=== PATIENT | female | born 1990 | race Two or more races ===

== ENCOUNTER 2020-08-29 16:27 | Inpatient (IN) | payer MEDICARE, OTHER ==
[~2020-08-29] VITALS: Ht 157.5 cm; Wt 55.4 kg
[~2020-08-29 16:27] MED LIST: AMIT25TA PO; AMLO-150 PO; GABA600T7 PO; INSU100C5 SQ-INSULIN; LEVO100T5 PO; LOSA100T14 PO; METO25TA35 PO; ONDA4TAB13 SL; OXYC5TAB98 PO; SEVE800T8 PO
--- NOTE | 2020-08-29 17:46 | NUR ---
OPTHO AT BEDSIDE.
--- NOTE | 2020-08-29 17:52 | NUR ---
MD AWARE OF HIGH BP
--- NOTE | 2020-08-29 18:06 | NUR ---
OPTHO AT BEDSIDE.
--- NOTE | 2020-08-29 18:45 | NUR ---
SPOKE [facility] PT'S FAMILY AND MITTENS ARE TO STAY ON AT ALL TIME. PT HAS REMOVED MUTIPLE ACCESS PORTS.
--- NOTE | 2020-08-29 19:55 | NUR ---
SPOKE WITH FANNY, PRE SCHOOL MANAGER AT [facility]. THEY ARE UNABLE TO ACCEPT PT THERE IS NO ADMITTING PHYSICIAN AT THIS TIME. DR BALLESTEROS UPDATED. PT WILL BE ADMITTED TO [facility].
--- NOTE | 2020-08-29 19:58 | NUR ---
LEFT MESSAGE UPDATING ON HOSP ADMISSION WITH PERSON TO NOTIFY IN PT DEMOGRAPHIC.
[2020-08-29] MEDS ORDERED: SODIUM CHLORIDE FLUSH 10ML SYR IVF ONE (20:30)
[2020-08-29] MEDS ORDERED: SODIUM CHLORIDE FLUSH 10ML SYR IVF PRN (20:30)
--- NOTE | 2020-08-29 20:51 | NUR ---
JAMIE WATSONER BROTHER [phone], CALLED JANICE ESPINOZA TO EXPLAIN POC WITH BROTHER AND BROTHER STATED HEMATOLOGY SUPERVISOR CARE WOULD BE A POC OR GO HOME WITH MOTHER AND HAVE 24/7 CARE FOR PT. ALEXIS TO F/U TOMORROW, DISCUSSED WITH FAMILY
--- NOTE | 2020-08-29 21:06 | NUR ---
pt in bed with brother at bedside, no signs or symptoms of acute distress noted respiraitons even and unlabored.
--- NOTE | 2020-08-29 21:32 | NUR ---
md at bedside to assess, pt brother at bedside answering questions. pt in bed with no signs or symptoms of acute distress noted respirations even and unlabored
[2020-08-29 21:52] VITALS: BP 171/105
[2020-08-29] MEDS: HEPARIN 5,000 UNITS/ML, 1ML SQ SCH (22:30)
[2020-08-29] MEDS ORDERED: DOCUSATE 100 MG CAPSULE PO PRN (22:30)
[2020-08-30 00:49] VITALS: BP 156/84
[2020-08-30] MEDS: predniSOLONE OPHTH SUSP 1%, 5ML LEFTEYE SCH ×6 (00:53→21:19)
[2020-08-30] MEDS: GENTAMICIN OPHTH SOLN 0.3%,5ML LEFTEYE SCH ×6 (00:53→21:18)
[2020-08-30] MEDS: CEPHALEXIN 500 MG CAPSULE PO SCH ×5 (00:53→23:46)
[2020-08-30] MEDS ORDERED: DOCU100C33 PO (02:00)
[2020-08-30] MEDS ORDERED: INSU100I13 SQ-INSULIN (02:00)
[2020-08-30] MEDS ORDERED: TACR1CAP2 PO (02:00)
[2020-08-30] MEDS ORDERED: LEVE100020 PO (02:00)
[2020-08-30] MEDS ORDERED: HYDR-3590 PO (02:00)
[2020-08-30] MEDS ORDERED: CALC0.25 PO (02:00)
[2020-08-30] MEDS ORDERED: INSU100I11 SQ-INSULIN (02:00)
[2020-08-30] MEDS ORDERED: LEVO100C4 PO (02:00)
[2020-08-30] MEDS ORDERED: LEVE500T53 PO (02:00)
[2020-08-30] MEDS ORDERED: HYDR5TAB13 PO (02:00)
[2020-08-30] MEDS ORDERED: CARV25TA PO (02:00)
[2020-08-30] MEDS ORDERED: BUPR100T11 PO (02:00)
[2020-08-30] MEDS ORDERED: CHOL10003 PO (02:00)
[2020-08-30] MEDS ORDERED: GLUCAGON 1 MG IM PRN (02:30)
[2020-08-30 05:38] LABS: BASOPHILS % (AUTO) 2 % (0-1); EOSINOPHILS % (AUTO) 8 % (1-7); LYMPHOCYTES % (AUTO) 21 % (22-44); MEAN CORPUSCULAR HEMOGLOBIN 30.6 pg (27.0-34.8); MEAN CORPUSCULAR HGB CONC 32.8 g/dL (32.4-35.8); MEAN PLATELET VOLUME 9.4 fL (7.4-10.4); MONOCYTES % (AUTO) 12 % (2-9); NEUTROPHILS % (AUTO) 57 % (42-75); PLATELET COUNT 267 x10^3/uL (130-400); RED BLOOD COUNT 3.52 x10^6/uL (3.82-5.3)
[2020-08-30 05:48] LABS: ANION GAP 15 mmol/L (5-15); CALCIUM 8.4 mg/dL (8.5-10.1); CHLORIDE 98 mmol/L (98-107)
[2020-08-30 05:49] LABS: CREATININE 5.19 mg/dL (0.55-1.02)
[2020-08-30] MEDS: HEPARIN 5,000 UNITS/ML, 1ML SQ SCH ×3 (06:30→22:30)
[2020-08-30 07:11] VITALS: BP 170/87
[2020-08-30] MEDS: CARVEDILOL 25 MG TABLET PO SCH ×2 (08:56→16:48)
[2020-08-30] MEDS: LEVETIRACETAM 500 MG TABLET PO SCH ×2 (08:56→21:18)
[2020-08-30] MEDS: SODIUM CHLORIDE FLUSH 10ML SYR IVF SCH ×2 (08:57→21:18)
[2020-08-30] MEDS: AMLODIPINE 5 MG TABLET PO SCH ×2 (08:57→21:18)
[2020-08-30] MEDS: INSULIN LISPRO 100 UNITS/ML, PEN SQ-INSULIN SCH ×4 (09:34→21:00)
[2020-08-30 13:23] VITALS: BP 124/83
[2020-08-30 13:24] VITALS: BP 129/87
[2020-08-30] MEDS: TACROLIMUS 1 MG CAPSULE PO SCH ×2 (13:29→23:46)
[2020-08-30 13:33] VITALS: BP 179/75
[2020-08-30 19:01] VITALS: BP 135/86
[2020-08-30] MEDS: DEXTROSE 50%, 50ML SYRINGE IVPush PRN ×2 (19:44→20:12)
[2020-08-31] MEDS: GENTAMICIN OPHTH SOLN 0.3%,5ML LEFTEYE SCH ×6 (01:08→20:49)
[2020-08-31] MEDS: predniSOLONE OPHTH SUSP 1%, 5ML LEFTEYE SCH ×6 (01:08→20:49)
[2020-08-31 01:14] VITALS: BP 123/72
[2020-08-31] MEDS: HEPARIN 5,000 UNITS/ML, 1ML SQ SCH ×2 (05:22→14:30)
[2020-08-31] MEDS: CEPHALEXIN 500 MG CAPSULE PO SCH ×3 (05:22→18:29)
[2020-08-31] MEDS: CARVEDILOL 25 MG TABLET PO SCH ×3 (05:22→18:00)
[2020-08-31 05:27] VITALS: BP 106/61
[2020-08-31 06:11] LABS: ALBUMIN 2.3 g/dL (3.4-5.0); ANION GAP 12 mmol/L (5-15); CALCIUM 7.8 mg/dL (8.5-10.1); CHLORIDE 99 mmol/L (98-107); CREATININE 6.17 mg/dL (0.55-1.02)
[2020-08-31 07:53] VITALS: BP 136/82
[2020-08-31] MEDS: SODIUM CHLORIDE FLUSH 10ML SYR IVF SCH ×2 (09:00→20:50)
[2020-08-31] MEDS: AMLODIPINE 5 MG TABLET PO SCH ×2 (09:12→20:49)
[2020-08-31] MEDS: LEVETIRACETAM 500 MG TABLET PO SCH ×2 (09:12→20:49)
[2020-08-31] MEDS: INSULIN LISPRO 100 UNITS/ML, PEN SQ-INSULIN SCH ×4 (09:13→20:44)
[2020-08-31] MEDS: TACROLIMUS 1 MG CAPSULE PO SCH (12:30)
[2020-08-31 19:09] VITALS: BP 103/88
[2020-08-31 20:22] VITALS: BP 124/71
[2020-09-01] MEDS: CEPHALEXIN 500 MG CAPSULE PO SCH ×4 (00:45→19:47)
[2020-09-01] MEDS: TACROLIMUS 1 MG CAPSULE PO SCH ×2 (00:45→13:39)
[2020-09-01] MEDS: predniSOLONE OPHTH SUSP 1%, 5ML LEFTEYE SCH ×6 (00:46→21:02)
[2020-09-01] MEDS: HEPARIN 5,000 UNITS/ML, 1ML SQ SCH ×3 (00:46→17:26)
[2020-09-01] MEDS: GENTAMICIN OPHTH SOLN 0.3%,5ML LEFTEYE SCH ×6 (00:46→21:02)
[2020-09-01 01:25] VITALS: BP 127/81
[2020-09-01] MEDS: LEVOTHYROXINE 100 MCG TABLET PO SCH (05:18)
[2020-09-01] MEDS: CARVEDILOL 25 MG TABLET PO SCH ×2 (05:18→19:47)
[2020-09-01] MEDS: HYDROCORTISONE 10 MG TABLET PO SCH (05:18)
[2020-09-01 05:34] LABS: BASOPHILS % (AUTO) 2 % (0-1); EOSINOPHILS % (AUTO) 11 % (1-7); LYMPHOCYTES % (AUTO) 25 % (22-44); MEAN CORPUSCULAR HEMOGLOBIN 30.3 pg (27.0-34.8); MEAN CORPUSCULAR HGB CONC 32.6 g/dL (32.4-35.8); MONOCYTES % (AUTO) 12 % (2-9); NEUTROPHILS % (AUTO) 51 % (42-75); PLATELET COUNT 228 x10^3/uL (130-400); RED BLOOD COUNT 3.91 x10^6/uL (3.82-5.3); RED CELL DISTRIBUTION WIDTH 15.7 % (9.6-15.2)
[2020-09-01 05:49] LABS: ALBUMIN 2.4 g/dL (3.4-5.0); ANION GAP 10 mmol/L (5-15); CALCIUM 8.3 mg/dL (8.5-10.1); CHLORIDE 98 mmol/L (98-107)
[2020-09-01 05:53] LABS: ALANINE AMINOTRANSFERASE 30 U/L (12-78); ALKALINE PHOSPHATASE 177 U/L (45-117); BILIRUBIN,TOTAL 0.4 mg/dL (0.2-1.0); CREATININE 4.72 mg/dL (0.55-1.02); TOTAL PROTEIN 6.4 g/dL (6.4-8.2)
[2020-09-01] MEDS: AMLODIPINE 5 MG TABLET PO SCH ×2 (08:23→21:02)
[2020-09-01] MEDS: LEVETIRACETAM 500 MG TABLET PO SCH ×2 (08:23→21:02)
[2020-09-01] MEDS: INSULIN LISPRO 100 UNITS/ML, PEN SQ-INSULIN SCH ×4 (08:24→21:12)
[2020-09-01] MEDS: SODIUM CHLORIDE FLUSH 10ML SYR IVF SCH ×2 (08:25→21:00)
[2020-09-01 08:35] VITALS: BP 113/73
[2020-09-01] MEDS: HYDROCORTISONE 5 MG TABLET PO SCH (12:02)
[2020-09-01 14:30] VITALS: BP 100/67
[2020-09-01] MEDS: ONDANSETRON ODT 4 MG PO PRN (15:14)
[2020-09-01 19:39] VITALS: BP 105/60
[2020-09-01] MEDS: BUPROPION 100 MG TABLET PO SCH (21:02)
[2020-09-01] MEDS: ACETAMINOPHEN 325 MG TABLET PO PRN (21:16)
[2020-09-02 00:57] VITALS: BP 105/76
[2020-09-02] MEDS: TACROLIMUS 1 MG CAPSULE PO SCH ×2 (01:41→14:03)
[2020-09-02] MEDS: HEPARIN 5,000 UNITS/ML, 1ML SQ SCH ×3 (01:41→21:23)
[2020-09-02] MEDS: CEPHALEXIN 500 MG CAPSULE PO SCH ×5 (01:41→21:23)
[2020-09-02] MEDS: GENTAMICIN OPHTH SOLN 0.3%,5ML LEFTEYE SCH ×6 (01:42→21:25)
[2020-09-02] MEDS: predniSOLONE OPHTH SUSP 1%, 5ML LEFTEYE SCH ×6 (01:42→21:25)
[2020-09-02] MEDS: CARVEDILOL 25 MG TABLET PO SCH ×2 (06:11→18:53)
[2020-09-02] MEDS: HYDROCORTISONE 10 MG TABLET PO SCH (06:11)
[2020-09-02] MEDS: LEVOTHYROXINE 100 MCG TABLET PO SCH (06:12)
[2020-09-02 06:30] LABS: BASOPHILS % (AUTO) 1 % (0-1); EOSINOPHILS % (AUTO) 5 % (1-7); LYMPHOCYTES % (AUTO) 25 % (22-44); MEAN CORPUSCULAR HGB CONC 32.8 g/dL (32.4-35.8); MEAN PLATELET VOLUME 9.6 fL (7.4-10.4); MONOCYTES % (AUTO) 8 % (2-9); NEUTROPHILS % (AUTO) 61 % (42-75); PLATELET COUNT 245 x10^3/uL (130-400); RED BLOOD COUNT 3.94 x10^6/uL (3.82-5.3); RED CELL DISTRIBUTION WIDTH 15.9 % (9.6-15.2)
[2020-09-02 06:45] LABS: ANION GAP 17 mmol/L (5-15); CALCIUM 8.3 mg/dL (8.5-10.1); CHLORIDE 94 mmol/L (98-107)
[2020-09-02 06:47] LABS: CREATININE 5.77 mg/dL (0.55-1.02)
[2020-09-02 07:21] VITALS: BP 93/53
[2020-09-02] MEDS: INSULIN LISPRO 100 UNITS/ML, PEN SQ-INSULIN SCH ×4 (07:50→21:34)
[2020-09-02] MEDS ORDERED: FAMOTIDINE 10 MG TAB PO SCH (12:00)
[2020-09-02] MEDS: SODIUM CHLORIDE FLUSH 10ML SYR IVF SCH ×2 (12:50→21:23)
[2020-09-02] MEDS: BUPROPION 100 MG TABLET PO SCH ×2 (14:03→21:23)
[2020-09-02] MEDS: LEVETIRACETAM 500 MG TABLET PO SCH ×2 (14:03→21:23)
[2020-09-02] MEDS: AMLODIPINE 5 MG TABLET PO SCH ×2 (14:03→21:23)
[2020-09-02] MEDS: HYDROCORTISONE 5 MG TABLET PO SCH (14:03)
[2020-09-02 14:22] VITALS: BP 151/102
[2020-09-02] MEDS: INSULIN GLARGINE 100 UNITS/ML, PEN SQ-INSULIN SCH ×2 (14:48→21:34)
[2020-09-02 19:54] VITALS: BP 146/70
[2020-09-03 00:45] VITALS: BP 139/85
[2020-09-03] MEDS: CEPHALEXIN 500 MG CAPSULE PO SCH ×4 (02:19→20:45)
[2020-09-03] MEDS: predniSOLONE OPHTH SUSP 1%, 5ML LEFTEYE SCH ×6 (02:19→20:45)
[2020-09-03] MEDS: GENTAMICIN OPHTH SOLN 0.3%,5ML LEFTEYE SCH ×6 (02:19→20:45)
[2020-09-03] MEDS: TACROLIMUS 1 MG CAPSULE PO SCH ×2 (02:19→12:53)
[2020-09-03 06:19] VITALS: BP 130/74
[2020-09-03 06:22] LABS: ALBUMIN 2.4 g/dL (3.4-5.0); ANION GAP 9 mmol/L (5-15); CALCIUM 8.6 mg/dL (8.5-10.1); CHLORIDE 99 mmol/L (98-107)
[2020-09-03] MEDS: LEVOTHYROXINE 100 MCG TABLET PO SCH (06:23)
[2020-09-03 06:24] LABS: CREATININE 4.48 mg/dL (0.55-1.02)
[2020-09-03] MEDS: HEPARIN 5,000 UNITS/ML, 1ML SQ SCH ×3 (06:24→20:46)
[2020-09-03] MEDS: CARVEDILOL 25 MG TABLET PO SCH ×2 (06:24→16:53)
[2020-09-03] MEDS: HYDROCORTISONE 10 MG TABLET PO SCH (06:24)
[2020-09-03 06:27] LABS: BASOPHILS % (AUTO) 1 % (0-1); EOSINOPHILS % (AUTO) 5 % (1-7); LYMPHOCYTES % (AUTO) 28 % (22-44); MEAN CORPUSCULAR HEMOGLOBIN 30.1 pg (27.0-34.8); MEAN PLATELET VOLUME 9.7 fL (7.4-10.4); MONOCYTES % (AUTO) 8 % (2-9); NEUTROPHILS % (AUTO) 58 % (42-75); PLATELET COUNT 251 x10^3/uL (130-400); RED BLOOD COUNT 3.76 x10^6/uL (3.82-5.3); RED CELL DISTRIBUTION WIDTH 15.5 % (9.6-15.2)
[2020-09-03 06:50] VITALS: BP 138/90
[2020-09-03] MEDS: INSULIN LISPRO 100 UNITS/ML, PEN SQ-INSULIN SCH ×4 (07:00→20:47)
[2020-09-03] MEDS: AMLODIPINE 5 MG TABLET PO SCH ×2 (08:34→20:45)
[2020-09-03] MEDS: INSULIN GLARGINE 100 UNITS/ML, PEN SQ-INSULIN SCH ×2 (08:34→20:48)
[2020-09-03] MEDS: BUPROPION 100 MG TABLET PO SCH ×2 (08:34→20:45)
[2020-09-03] MEDS: LEVETIRACETAM 500 MG TABLET PO SCH ×2 (08:34→20:45)
[2020-09-03] MEDS: SODIUM CHLORIDE FLUSH 10ML SYR IVF SCH ×2 (08:36→20:53)
[2020-09-03] MEDS: HYDROCORTISONE 5 MG TABLET PO SCH (11:48)
[2020-09-03 16:56] VITALS: BP 139/91
[2020-09-03 20:02] VITALS: BP 140/83
[2020-09-04 01:13] VITALS: BP 123/84
[2020-09-04] MEDS: CEPHALEXIN 500 MG CAPSULE PO SCH ×4 (01:24→21:21)
[2020-09-04] MEDS: predniSOLONE OPHTH SUSP 1%, 5ML LEFTEYE SCH ×6 (01:25→21:21)
[2020-09-04] MEDS: GENTAMICIN OPHTH SOLN 0.3%,5ML LEFTEYE SCH ×6 (01:25→21:21)
[2020-09-04] MEDS: TACROLIMUS 1 MG CAPSULE PO SCH ×2 (01:25→12:50)
[2020-09-04 05:49] LABS: BASOPHILS % (AUTO) 1 % (0-1); EOSINOPHILS % (AUTO) 4 % (1-7); LYMPHOCYTES % (AUTO) 29 % (22-44); MEAN CORPUSCULAR HEMOGLOBIN 30.5 pg (27.0-34.8); MEAN CORPUSCULAR HGB CONC 33.4 g/dL (32.4-35.8); MEAN PLATELET VOLUME 9.8 fL (7.4-10.4); MONOCYTES % (AUTO) 9 % (2-9); NEUTROPHILS % (AUTO) 57 % (42-75); PLATELET COUNT 260 x10^3/uL (130-400); RED BLOOD COUNT 3.91 x10^6/uL (3.82-5.3); RED CELL DISTRIBUTION WIDTH 15.6 % (9.6-15.2)
[2020-09-04 05:53] LABS: ALBUMIN 2.5 g/dL (3.4-5.0); ANION GAP 9 mmol/L (5-15); CALCIUM 8.4 mg/dL (8.5-10.1); CHLORIDE 99 mmol/L (98-107); CREATININE 5.99 mg/dL (0.55-1.02)
[2020-09-04 06:07] VITALS: BP 119/81
[2020-09-04] MEDS: HYDROCORTISONE 10 MG TABLET PO SCH (06:12)
[2020-09-04] MEDS: CARVEDILOL 25 MG TABLET PO SCH ×2 (06:12→17:18)
[2020-09-04] MEDS: LEVOTHYROXINE 100 MCG TABLET PO SCH (06:13)
[2020-09-04] MEDS: HEPARIN 5,000 UNITS/ML, 1ML SQ SCH ×3 (06:13→21:21)
[2020-09-04 06:22] VITALS: BP 138/82
[2020-09-04] MEDS: INSULIN LISPRO 100 UNITS/ML, PEN SQ-INSULIN SCH ×4 (07:00→21:26)
[2020-09-04] MEDS: AMLODIPINE 5 MG TABLET PO SCH ×2 (08:07→21:21)
[2020-09-04] MEDS: LEVETIRACETAM 500 MG TABLET PO SCH ×2 (08:07→21:21)
[2020-09-04] MEDS: BUPROPION 100 MG TABLET PO SCH ×2 (08:07→21:21)
[2020-09-04] MEDS: SODIUM CHLORIDE FLUSH 10ML SYR IVF SCH ×2 (08:07→21:21)
[2020-09-04] MEDS: INSULIN GLARGINE 100 UNITS/ML, PEN SQ-INSULIN SCH ×2 (09:29→21:26)
[2020-09-04 12:09] VITALS: BP 100/59
[2020-09-04] MEDS: HYDROCORTISONE 5 MG TABLET PO SCH (12:50)
[2020-09-04 17:16] VITALS: BP 137/85
[2020-09-04 18:56] VITALS: BP 112/72
[2020-09-05 00:04] VITALS: BP 136/91
[2020-09-05] MEDS: predniSOLONE OPHTH SUSP 1%, 5ML LEFTEYE SCH ×5 (01:55→21:36)
[2020-09-05] MEDS: GENTAMICIN OPHTH SOLN 0.3%,5ML LEFTEYE SCH ×5 (01:55→21:36)
[2020-09-05] MEDS: CEPHALEXIN 500 MG CAPSULE PO SCH ×3 (01:55→17:30)
[2020-09-05] MEDS: TACROLIMUS 1 MG CAPSULE PO SCH ×2 (01:55→11:55)
[2020-09-05 05:24] LABS: ALBUMIN 2.3 g/dL (3.4-5.0); CHLORIDE 99 mmol/L (98-107)
[2020-09-05 05:26] LABS: ANION GAP 9 mmol/L (5-15); CALCIUM 8.4 mg/dL (8.5-10.1); CREATININE 7.28 mg/dL (0.55-1.02)
[2020-09-05 05:42] VITALS: BP 95/75
[2020-09-05] MEDS: CARVEDILOL 25 MG TABLET PO SCH ×2 (05:55→17:30)
[2020-09-05] MEDS: LEVOTHYROXINE 100 MCG TABLET PO SCH (05:55)
[2020-09-05] MEDS: HEPARIN 5,000 UNITS/ML, 1ML SQ SCH ×3 (05:55→21:36)
[2020-09-05] MEDS: HYDROCORTISONE 10 MG TABLET PO SCH (05:55)
[2020-09-05 06:50] VITALS: BP 121/76
[2020-09-05] MEDS: INSULIN LISPRO 100 UNITS/ML, PEN SQ-INSULIN SCH ×4 (07:00→21:37)
[2020-09-05] MEDS: SODIUM CHLORIDE FLUSH 10ML SYR IVF SCH ×2 (09:00→21:42)
[2020-09-05] MEDS: HYDROCORTISONE 5 MG TABLET PO SCH (11:55)
[2020-09-05] MEDS: BUPROPION 100 MG TABLET PO SCH ×2 (11:55→21:37)
[2020-09-05] MEDS: SEVELAMER CARBONATE 800MG TAB PO SCH ×2 (11:55→16:38)
[2020-09-05] MEDS: LEVETIRACETAM 500 MG TABLET PO SCH ×2 (11:56→21:37)
[2020-09-05] MEDS: AMLODIPINE 5 MG TABLET PO SCH ×2 (11:56→21:37)
[2020-09-05] MEDS: INSULIN GLARGINE 100 UNITS/ML, PEN SQ-INSULIN SCH ×2 (11:57→21:38)
[2020-09-05 12:02] VITALS: BP 139/98
[2020-09-05 19:43] VITALS: BP 142/97
[2020-09-06] MEDS: CEPHALEXIN 500 MG CAPSULE PO SCH ×4 (00:32→18:16)
[2020-09-06] MEDS: TACROLIMUS 1 MG CAPSULE PO SCH ×2 (00:32→13:53)
[2020-09-06] MEDS: predniSOLONE OPHTH SUSP 1%, 5ML LEFTEYE SCH ×6 (00:37→22:08)
[2020-09-06] MEDS: GENTAMICIN OPHTH SOLN 0.3%,5ML LEFTEYE SCH ×6 (00:37→22:08)
[2020-09-06 00:55] VITALS: BP 135/89
[2020-09-06 05:20] LABS: BASOPHILS % (AUTO) 2 % (0-1); EOSINOPHILS % (AUTO) 4 % (1-7); LYMPHOCYTES % (AUTO) 32 % (22-44); MEAN CORPUSCULAR HEMOGLOBIN 30.2 pg (27.0-34.8); MEAN CORPUSCULAR HGB CONC 33.1 g/dL (32.4-35.8); MEAN PLATELET VOLUME 9.9 fL (7.4-10.4); MONOCYTES % (AUTO) 11 % (2-9); NEUTROPHILS % (AUTO) 52 % (42-75); PLATELET COUNT 233 x10^3/uL (130-400); RED BLOOD COUNT 3.92 x10^6/uL (3.82-5.3); RED CELL DISTRIBUTION WIDTH 15.5 % (9.6-15.2)
[2020-09-06 05:33] LABS: ALBUMIN 2.5 g/dL (3.4-5.0); ANION GAP 10 mmol/L (5-15); CALCIUM 8.6 mg/dL (8.5-10.1); CHLORIDE 98 mmol/L (98-107)
[2020-09-06 05:34] LABS: CREATININE 5.43 mg/dL (0.55-1.02)
[2020-09-06] MEDS: CARVEDILOL 25 MG TABLET PO SCH ×2 (06:02→18:15)
[2020-09-06] MEDS: LEVOTHYROXINE 100 MCG TABLET PO SCH (06:02)
[2020-09-06] MEDS: HYDROCORTISONE 10 MG TABLET PO SCH (06:03)
[2020-09-06] MEDS: HEPARIN 5,000 UNITS/ML, 1ML SQ SCH ×3 (06:03→22:11)
[2020-09-06] MEDS: INSULIN LISPRO 100 UNITS/ML, PEN SQ-INSULIN SCH ×4 (07:00→22:10)
[2020-09-06 07:53] VITALS: BP 131/85
[2020-09-06] MEDS: SEVELAMER CARBONATE 800MG TAB PO SCH ×3 (08:00→16:37)
[2020-09-06] MEDS: BUPROPION 100 MG TABLET PO SCH ×2 (08:13→21:56)
[2020-09-06] MEDS: LEVETIRACETAM 500 MG TABLET PO SCH ×2 (08:13→21:56)
[2020-09-06] MEDS: AMLODIPINE 5 MG TABLET PO SCH ×2 (08:16→21:57)
[2020-09-06] MEDS: SODIUM CHLORIDE FLUSH 10ML SYR IVF SCH ×2 (08:30→21:00)
[2020-09-06] MEDS: HYDROCORTISONE 5 MG TABLET PO SCH (12:19)
[2020-09-06 13:24] VITALS: BP 143/90
[2020-09-06 18:12] VITALS: BP 130/92
[2020-09-06 22:03] VITALS: BP 138/90
[2020-09-07] VITALS (7 sets, daily range): BP systolic 131–167; BP diastolic 76–103
[2020-09-07] MEDS: CEPHALEXIN 500 MG CAPSULE PO SCH ×4 (00:04→19:18)
[2020-09-07] MEDS: predniSOLONE OPHTH SUSP 1%, 5ML LEFTEYE SCH ×5 (02:03→21:49)
[2020-09-07] MEDS: TACROLIMUS 1 MG CAPSULE PO SCH ×2 (02:03→13:00)
[2020-09-07] MEDS: GENTAMICIN OPHTH SOLN 0.3%,5ML LEFTEYE SCH ×5 (02:03→21:49)
[2020-09-07] MEDS: HYDROCORTISONE 10 MG TABLET PO SCH (05:44)
[2020-09-07] MEDS: HEPARIN 5,000 UNITS/ML, 1ML SQ SCH ×3 (05:44→21:44)
[2020-09-07] MEDS: LEVOTHYROXINE 100 MCG TABLET PO SCH (05:45)
[2020-09-07] MEDS: CARVEDILOL 25 MG TABLET PO SCH ×2 (05:49→17:55)
[2020-09-07 06:04] LABS: ALBUMIN 2.6 g/dL (3.4-5.0); CHLORIDE 95 mmol/L (98-107)
[2020-09-07 06:08] LABS: ANION GAP 13 mmol/L (5-15); CREATININE 6.73 mg/dL (0.55-1.02)
[2020-09-07] MEDS: INSULIN LISPRO 100 UNITS/ML, PEN SQ-INSULIN SCH ×4 (07:31→21:00)
[2020-09-07] MEDS: SEVELAMER CARBONATE 800MG TAB PO SCH ×3 (08:00→17:34)
[2020-09-07] MEDS ORDERED: INSULIN LISPRO 100 UNITS/ML, PEN SQ-INSULIN ONE ×2 (08:30→22:00)
[2020-09-07] MEDS: LEVETIRACETAM 500 MG TABLET PO SCH ×2 (13:00→21:45)
[2020-09-07] MEDS: BUPROPION 100 MG TABLET PO SCH ×2 (13:00→21:44)
[2020-09-07] MEDS: HYDROCORTISONE 5 MG TABLET PO SCH (13:00)
[2020-09-07] MEDS: SODIUM CHLORIDE FLUSH 10ML SYR IVF SCH ×2 (13:08→19:29)
[2020-09-07] MEDS: AMLODIPINE 5 MG TABLET PO SCH ×2 (13:15→21:49)
[2020-09-08] MEDS: GENTAMICIN OPHTH SOLN 0.3%,5ML LEFTEYE SCH ×6 (00:56→21:28)
[2020-09-08] MEDS: CEPHALEXIN 500 MG CAPSULE PO SCH ×4 (00:56→17:58)
[2020-09-08] MEDS: predniSOLONE OPHTH SUSP 1%, 5ML LEFTEYE SCH ×6 (00:56→21:28)
[2020-09-08] MEDS: TACROLIMUS 1 MG CAPSULE PO SCH ×2 (00:56→13:29)
[2020-09-08] MEDS ORDERED: INSULIN LISPRO 100 UNITS/ML, PEN SQ-INSULIN ONE ×4 (01:00→13:00)
[2020-09-08 02:10] VITALS: BP 148/89
[2020-09-08] MEDS: HEPARIN 5,000 UNITS/ML, 1ML SQ SCH ×3 (05:27→21:28)
[2020-09-08] MEDS: HYDROCORTISONE 10 MG TABLET PO SCH (05:27)
[2020-09-08] MEDS: LEVOTHYROXINE 100 MCG TABLET PO SCH (05:27)
[2020-09-08 05:42] VITALS: BP 131/88
[2020-09-08] MEDS: CARVEDILOL 25 MG TABLET PO SCH ×2 (05:44→17:58)
[2020-09-08 06:19] LABS: BASOPHILS % (AUTO) 2 % (0-1); EOSINOPHILS % (AUTO) 3 % (1-7); LYMPHOCYTES % (AUTO) 30 % (22-44); MEAN CORPUSCULAR HEMOGLOBIN 30.2 pg (27.0-34.8); MEAN CORPUSCULAR HGB CONC 33.2 g/dL (32.4-35.8); MEAN PLATELET VOLUME 10.1 fL (7.4-10.4); MONOCYTES % (AUTO) 13 % (2-9); NEUTROPHILS % (AUTO) 53 % (42-75); PLATELET COUNT 264 x10^3/uL (130-400); RED CELL DISTRIBUTION WIDTH 15.2 % (9.6-15.2)
[2020-09-08 06:21] LABS: CHLORIDE 98 mmol/L (98-107)
[2020-09-08 06:26] LABS: ALBUMIN 2.6 g/dL (3.4-5.0); ANION GAP 8 mmol/L (5-15); CALCIUM 9.1 mg/dL (8.5-10.1); CREATININE 4.96 mg/dL (0.55-1.02)
[2020-09-08] MEDS: INSULIN LISPRO 100 UNITS/ML, PEN SQ-INSULIN SCH ×4 (06:53→21:29)
[2020-09-08 07:32] VITALS: BP 104/71
[2020-09-08] MEDS: SEVELAMER CARBONATE 800MG TAB PO SCH ×3 (08:00→16:26)
[2020-09-08] MEDS: AMLODIPINE 5 MG TABLET PO SCH ×2 (08:43→21:28)
[2020-09-08] MEDS: LEVETIRACETAM 500 MG TABLET PO SCH ×2 (08:43→21:28)
[2020-09-08] MEDS: BUPROPION 100 MG TABLET PO SCH ×2 (08:43→21:28)
[2020-09-08] MEDS: SODIUM CHLORIDE FLUSH 10ML SYR IVF SCH ×2 (08:45→21:28)
[2020-09-08] MEDS ORDERED: INSULIN LISPRO 100 UNIT/ML, 3ML VIAL IVPush SCH (11:30)
[2020-09-08] MEDS: HYDROCORTISONE 5 MG TABLET PO SCH (12:06)
[2020-09-08] MEDS ORDERED: INSULIN REGULAR 100 UNITS/ML, 3ML VIAL IVPush ONE (12:30)
[2020-09-08 13:39] VITALS: BP 111/68
[2020-09-08 14:32] LABS: ANION GAP 13 mmol/L (5-15); CHLORIDE 96 mmol/L (98-107); CREATININE 5.86 mg/dL (0.55-1.02)
[2020-09-08 17:57] VITALS: BP 110/75
[2020-09-08 19:14] VITALS: BP 124/83
[2020-09-09 00:30] VITALS: BP 117/58
[2020-09-09] MEDS: CEPHALEXIN 500 MG CAPSULE PO SCH ×4 (01:36→23:02)
[2020-09-09] MEDS: predniSOLONE OPHTH SUSP 1%, 5ML LEFTEYE SCH ×6 (01:36→22:54)
[2020-09-09] MEDS: GENTAMICIN OPHTH SOLN 0.3%,5ML LEFTEYE SCH ×6 (01:36→22:54)
[2020-09-09] MEDS: TACROLIMUS 1 MG CAPSULE PO SCH ×2 (01:42→14:00)
[2020-09-09 05:39] VITALS: BP 147/83
[2020-09-09] MEDS: CARVEDILOL 25 MG TABLET PO SCH ×2 (05:40→23:03)
[2020-09-09] MEDS: LEVOTHYROXINE 100 MCG TABLET PO SCH (05:41)
[2020-09-09] MEDS: HYDROCORTISONE 10 MG TABLET PO SCH (05:41)
[2020-09-09] MEDS: HEPARIN 5,000 UNITS/ML, 1ML SQ SCH ×3 (05:42→22:54)
[2020-09-09 05:51] LABS: BASOPHILS % (AUTO) 2 % (0-1); EOSINOPHILS % (AUTO) 2 % (1-7); LYMPHOCYTES % (AUTO) 28 % (22-44); MEAN CORPUSCULAR HEMOGLOBIN 29.9 pg (27.0-34.8); MEAN CORPUSCULAR HGB CONC 32.9 g/dL (32.4-35.8); MEAN PLATELET VOLUME 10.7 fL (7.4-10.4); MONOCYTES % (AUTO) 11 % (2-9); NEUTROPHILS % (AUTO) 58 % (42-75); PLATELET COUNT 239 x10^3/uL (130-400); RED BLOOD COUNT 3.86 x10^6/uL (3.82-5.3)
[2020-09-09 07:17] VITALS: BP 106/60
[2020-09-09 07:24] LABS: ALANINE AMINOTRANSFERASE 29 U/L (12-78); ALBUMIN 2.7 g/dL (3.4-5.0); ANION GAP 14 mmol/L (5-15); CALCIUM 8.5 mg/dL (8.5-10.1); CHLORIDE 96 mmol/L (98-107); CREATININE 6.79 mg/dL (0.55-1.02)
[2020-09-09 07:26] LABS: ALKALINE PHOSPHATASE 145 U/L (45-117); BILIRUBIN,TOTAL 0.4 mg/dL (0.2-1.0)
[2020-09-09] MEDS: SEVELAMER CARBONATE 800MG TAB PO SCH ×3 (08:02→16:50)
[2020-09-09] MEDS: BUPROPION 100 MG TABLET PO SCH ×2 (08:02→23:02)
[2020-09-09] MEDS: LEVETIRACETAM 500 MG TABLET PO SCH ×2 (08:02→23:03)
[2020-09-09] MEDS: AMLODIPINE 5 MG TABLET PO SCH ×2 (08:02→23:03)
[2020-09-09] MEDS: SODIUM CHLORIDE FLUSH 10ML SYR IVF SCH ×2 (08:02→22:54)
[2020-09-09] MEDS: INSULIN LISPRO 100 UNITS/ML, PEN SQ-INSULIN SCH ×3 (08:03→16:00)
[2020-09-09] MEDS: INSULIN GLARGINE 100 UNITS/ML, PEN SQ-INSULIN SCH ×2 (08:04→21:00)
[2020-09-09] MEDS ORDERED: INSULIN GLARGINE 100 UNITS/ML, PEN SQ-INSULIN SCH (09:00)
[2020-09-09] MEDS ORDERED: INSULIN LISPRO 100 UNITS/ML, PEN SQ-INSULIN SCH (11:00)
[2020-09-09] MEDS: HYDROCORTISONE 5 MG TABLET PO SCH (11:30)
[2020-09-09 13:14] VITALS: BP 109/64
[2020-09-09 18:50] VITALS: BP 138/84
[2020-09-09 21:30] LABS: ALANINE AMINOTRANSFERASE 26 U/L (12-78); ALBUMIN 2.7 g/dL (3.4-5.0); ANION GAP 7 mmol/L (5-15); CALCIUM 8.7 mg/dL (8.5-10.1); CHLORIDE 100 mmol/L (98-107); CREATININE 4.06 mg/dL (0.55-1.02)
[2020-09-09 21:32] LABS: ALKALINE PHOSPHATASE 152 U/L (45-117); BILIRUBIN,TOTAL 0.3 mg/dL (0.2-1.0); TOTAL PROTEIN 7.1 g/dL (6.4-8.2)
[2020-09-09] MEDS: DEXTROSE 50%, 50ML SYRINGE IVPush PRN (22:53)
[2020-09-09 23:05] VITALS: BP 163/85
[2020-09-10 01:43] VITALS: BP 103/66
[2020-09-10] MEDS: TACROLIMUS 1 MG CAPSULE PO SCH ×2 (02:12→14:48)
[2020-09-10] MEDS: GENTAMICIN OPHTH SOLN 0.3%,5ML LEFTEYE SCH ×5 (03:29→21:07)
[2020-09-10] MEDS: predniSOLONE OPHTH SUSP 1%, 5ML LEFTEYE SCH ×5 (03:29→21:07)
[2020-09-10 05:31] VITALS: BP 142/83
[2020-09-10] MEDS: CARVEDILOL 25 MG TABLET PO SCH ×2 (05:32→18:01)
[2020-09-10] MEDS: LEVOTHYROXINE 100 MCG TABLET PO SCH (05:32)
[2020-09-10] MEDS: HYDROCORTISONE 10 MG TABLET PO SCH (05:32)
[2020-09-10] MEDS: CEPHALEXIN 500 MG CAPSULE PO SCH ×3 (05:32→18:01)
[2020-09-10 05:55] LABS: ALBUMIN 2.7 g/dL (3.4-5.0); ANION GAP 9 mmol/L (5-15); CHLORIDE 99 mmol/L (98-107); CREATININE 4.67 mg/dL (0.55-1.02)
[2020-09-10 08:00] VITALS: BP 102/70
[2020-09-10] MEDS: HEPARIN 5,000 UNITS/ML, 1ML SQ SCH ×2 (08:05→16:55)
[2020-09-10] MEDS: SEVELAMER CARBONATE 800MG TAB PO SCH ×3 (08:06→16:55)
[2020-09-10] MEDS: SODIUM CHLORIDE FLUSH 10ML SYR IVF SCH ×2 (08:08→21:07)
[2020-09-10] MEDS: LEVETIRACETAM 500 MG TABLET PO SCH ×2 (08:11→21:06)
[2020-09-10] MEDS: BUPROPION 100 MG TABLET PO SCH ×2 (08:11→21:06)
[2020-09-10] MEDS: AMLODIPINE 5 MG TABLET PO SCH ×2 (08:11→21:06)
[2020-09-10] MEDS: INSULIN LISPRO 100 UNITS/ML, PEN SQ-INSULIN SCH ×3 (09:26→18:01)
[2020-09-10] MEDS: HYDROCORTISONE 5 MG TABLET PO SCH (12:31)
[2020-09-10 13:57] VITALS: BP 111/64
[2020-09-10 17:59] VITALS: BP 165/90
[2020-09-10 19:56] VITALS: BP 136/82
[2020-09-10] MEDS: INSULIN GLARGINE 100 UNITS/ML, PEN SQ-INSULIN SCH (21:00)
[2020-09-11] MEDS: GENTAMICIN OPHTH SOLN 0.3%,5ML LEFTEYE SCH ×6 (01:06→20:17)
[2020-09-11] MEDS: CEPHALEXIN 500 MG CAPSULE PO SCH ×4 (01:06→17:23)
[2020-09-11] MEDS: HEPARIN 5,000 UNITS/ML, 1ML SQ SCH ×3 (01:06→17:23)
[2020-09-11] MEDS: predniSOLONE OPHTH SUSP 1%, 5ML LEFTEYE SCH ×6 (01:06→20:17)
[2020-09-11 01:50] VITALS: BP 142/82
[2020-09-11] MEDS: TACROLIMUS 1 MG CAPSULE PO SCH ×2 (03:06→15:30)
[2020-09-11 05:26] VITALS: BP 145/80
[2020-09-11] MEDS: CARVEDILOL 25 MG TABLET PO SCH ×2 (05:27→17:24)
[2020-09-11] MEDS: HYDROCORTISONE 10 MG TABLET PO SCH (05:27)
[2020-09-11] MEDS: LEVOTHYROXINE 100 MCG TABLET PO SCH (05:28)
[2020-09-11 06:29] VITALS: BP 94/57
[2020-09-11] MEDS: AMLODIPINE 5 MG TABLET PO SCH ×2 (07:32→20:16)
[2020-09-11] MEDS: SEVELAMER CARBONATE 800MG TAB PO SCH ×3 (08:00→17:00)
[2020-09-11] MEDS: INSULIN LISPRO 100 UNITS/ML, PEN SQ-INSULIN ONE ×2 (08:25→08:30)
[2020-09-11] MEDS: LEVETIRACETAM 500 MG TABLET PO SCH ×2 (08:26→20:16)
[2020-09-11] MEDS: BUPROPION 100 MG TABLET PO SCH ×2 (08:26→20:16)
[2020-09-11] MEDS: SODIUM CHLORIDE FLUSH 10ML SYR IVF SCH ×2 (08:30→20:17)
[2020-09-11 08:40] LABS: BASOPHILS % (AUTO) 1 % (0-1); EOSINOPHILS % (AUTO) 5 % (1-7); LYMPHOCYTES % (AUTO) 24 % (22-44); MEAN CORPUSCULAR HEMOGLOBIN 29.7 pg (27.0-34.8); MEAN CORPUSCULAR HGB CONC 32.2 g/dL (32.4-35.8); MEAN PLATELET VOLUME 10.7 fL (7.4-10.4); MONOCYTES % (AUTO) 14 % (2-9); NEUTROPHILS % (AUTO) 57 % (42-75); PLATELET COUNT 237 x10^3/uL (130-400); RED BLOOD COUNT 3.95 x10^6/uL (3.82-5.3); RED CELL DISTRIBUTION WIDTH 14.8 % (9.6-15.2)
[2020-09-11 08:46] LABS: CHLORIDE 97 mmol/L (98-107)
[2020-09-11 08:47] LABS: ALBUMIN 2.8 g/dL (3.4-5.0); ANION GAP 10 mmol/L (5-15); CALCIUM 8.9 mg/dL (8.5-10.1)
[2020-09-11 08:50] LABS: ALANINE AMINOTRANSFERASE 33 U/L (12-78); ALKALINE PHOSPHATASE 148 U/L (45-117); BILIRUBIN,TOTAL 0.4 mg/dL (0.2-1.0); CREATININE 6.49 mg/dL (0.55-1.02); TOTAL PROTEIN 7.1 g/dL (6.4-8.2)
[2020-09-11] MEDS: INSULIN REGULAR 100 UNITS/ML, 3ML VIAL IVPush ONE ×4 (10:30→15:32)
[2020-09-11] MEDS: INSULIN LISPRO 100 UNITS/ML, PEN SQ-INSULIN SCH ×2 (11:13→16:00)
[2020-09-11] MEDS: HYDROCORTISONE 5 MG TABLET PO SCH (11:13)
[2020-09-11] MEDS ORDERED: INSULIN LISPRO 100 UNITS/ML, PEN SQ-INSULIN ONE ×2 (12:00→14:00)
[2020-09-11 13:12] VITALS: BP 101/73
[2020-09-11] MEDS ORDERED: INSULIN LISPRO 100 UNIT/ML, 3ML VIAL SQ-INSULIN ONE (13:30)
[2020-09-11 14:18] LABS: ANION GAP 12 mmol/L (5-15); CALCIUM 8.5 mg/dL (8.5-10.1); CHLORIDE 95 mmol/L (98-107)
[2020-09-11 14:19] LABS: CREATININE 7.01 mg/dL (0.55-1.02)
[2020-09-11] MEDS ORDERED: SODIUM CHLORIDE 0.9%, 500ML IVBOLUS ONE (16:30)
[2020-09-11] MEDS ORDERED: INSULIN REGULAR 100 UNITS/ML, 3ML VIAL IVPush ONE (16:30)
[2020-09-11 18:25] VITALS: BP 155/90
[2020-09-11] MEDS: INSULIN GLARGINE 100 UNITS/ML, PEN SQ-INSULIN SCH (20:32)
[2020-09-12 01:03] VITALS: BP 146/91
[2020-09-12] MEDS: HEPARIN 5,000 UNITS/ML, 1ML SQ SCH ×3 (01:21→17:38)
[2020-09-12] MEDS: predniSOLONE OPHTH SUSP 1%, 5ML LEFTEYE SCH ×6 (01:21→21:01)
[2020-09-12] MEDS: GENTAMICIN OPHTH SOLN 0.3%,5ML LEFTEYE SCH ×6 (01:21→21:01)
[2020-09-12] MEDS: CEPHALEXIN 500 MG CAPSULE PO SCH ×4 (01:21→17:38)
[2020-09-12] MEDS: TACROLIMUS 1 MG CAPSULE PO SCH ×2 (03:15→15:20)
[2020-09-12 05:27] VITALS: BP 134/86
[2020-09-12] MEDS: CARVEDILOL 25 MG TABLET PO SCH (05:28)
[2020-09-12] MEDS: HYDROCORTISONE 10 MG TABLET PO SCH (05:28)
[2020-09-12] MEDS: LEVOTHYROXINE 100 MCG TABLET PO SCH (05:28)
[2020-09-12 07:45] VITALS: BP 125/86
[2020-09-12 07:55] LABS: BASOPHILS % (AUTO) 3 % (0-1); EOSINOPHILS % (AUTO) 5 % (1-7); LYMPHOCYTES % (AUTO) 34 % (22-44); MEAN CORPUSCULAR HEMOGLOBIN 29.8 pg (27.0-34.8); MEAN CORPUSCULAR HGB CONC 32.7 g/dL (32.4-35.8); MEAN PLATELET VOLUME 10.2 fL (7.4-10.4); MONOCYTES % (AUTO) 10 % (2-9); NEUTROPHILS % (AUTO) 48 % (42-75); PLATELET COUNT 238 x10^3/uL (130-400); RED BLOOD COUNT 3.73 x10^6/uL (3.82-5.3); RED CELL DISTRIBUTION WIDTH 14.6 % (9.6-15.2)
[2020-09-12] MEDS: SEVELAMER CARBONATE 800MG TAB PO SCH ×3 (08:00→17:38)
[2020-09-12 08:01] LABS: ALBUMIN 2.5 g/dL (3.4-5.0); ANION GAP 12 mmol/L (5-15); CALCIUM 8.7 mg/dL (8.5-10.1); CHLORIDE 99 mmol/L (98-107)
[2020-09-12 08:05] LABS: ALANINE AMINOTRANSFERASE 26 U/L (12-78); ALKALINE PHOSPHATASE 136 U/L (45-117); BILIRUBIN,TOTAL 0.3 mg/dL (0.2-1.0); CREATININE 7.44 mg/dL (0.55-1.02); TOTAL PROTEIN 6.6 g/dL (6.4-8.2)
[2020-09-12] MEDS: BUPROPION 100 MG TABLET PO SCH ×2 (08:18→21:02)
[2020-09-12] MEDS: INSULIN LISPRO 100 UNITS/ML, PEN SQ-INSULIN SCH ×2 (08:18→11:00)
[2020-09-12] MEDS: LEVETIRACETAM 500 MG TABLET PO SCH ×2 (08:18→21:02)
[2020-09-12] MEDS: SODIUM CHLORIDE FLUSH 10ML SYR IVF SCH ×2 (08:25→21:02)
[2020-09-12] MEDS: HYDROCORTISONE 5 MG TABLET PO SCH (11:30)
[2020-09-12 14:15] VITALS: BP 158/97
[2020-09-12] MEDS ORDERED: AMLO5TAB4 PO (15:08)
[2020-09-12] MEDS ORDERED: INSULIN REGULAR 100 UNITS/ML, 3ML VIAL IVPush ONE (17:30)
[2020-09-12] MEDS: CARVEDILOL 12.5 MG TABLET PO SCH (17:38)
[2020-09-12] MEDS ORDERED: INSULIN LISPRO 100 UNITS/ML, PEN SQ-INSULIN ONE (21:30)
[2020-09-12] MEDS: INSULIN GLARGINE 100 UNITS/ML, PEN SQ-INSULIN SCH (21:50)
[2020-09-12 21:55] VITALS: BP 132/82
[2020-09-13] MEDS ORDERED: INSULIN LISPRO 100 UNITS/ML, PEN SQ-INSULIN ONE (01:00)
[2020-09-13] MEDS: HEPARIN 5,000 UNITS/ML, 1ML SQ SCH ×3 (01:15→16:29)
[2020-09-13] MEDS: CEPHALEXIN 500 MG CAPSULE PO SCH ×2 (01:15→07:00)
[2020-09-13] MEDS: predniSOLONE OPHTH SUSP 1%, 5ML LEFTEYE SCH ×3 (01:15→08:16)
[2020-09-13] MEDS: GENTAMICIN OPHTH SOLN 0.3%,5ML LEFTEYE SCH ×3 (01:15→08:16)
[2020-09-13 01:37] LABS: ANION GAP 10 mmol/L (5-15); CALCIUM 8.4 mg/dL (8.5-10.1); CHLORIDE 96 mmol/L (98-107); CREATININE 4.93 mg/dL (0.55-1.02)
[2020-09-13 02:50] VITALS: BP 128/78
[2020-09-13] MEDS: TACROLIMUS 1 MG CAPSULE PO SCH (03:12)
[2020-09-13] MEDS: CARVEDILOL 12.5 MG TABLET PO SCH ×2 (05:28→16:49)
[2020-09-13] MEDS: LEVOTHYROXINE 100 MCG TABLET PO SCH (05:28)
[2020-09-13 05:29] VITALS: BP 149/94
[2020-09-13 06:37] VITALS: BP 152/72
[2020-09-13] MEDS: INSULIN LISPRO 100 UNITS/ML, PEN SQ-INSULIN SCH ×3 (08:40→16:49)
[2020-09-13] MEDS: SEVELAMER CARBONATE 800MG TAB PO SCH ×3 (08:40→16:49)
[2020-09-13] MEDS: LEVETIRACETAM 500 MG TABLET PO SCH ×2 (08:40→20:01)
[2020-09-13] MEDS: INSULIN GLARGINE 100 UNITS/ML, PEN SQ-INSULIN SCH ×2 (08:41→20:01)
[2020-09-13] MEDS: BUPROPION 100 MG TABLET PO SCH ×2 (08:41→19:59)
[2020-09-13] MEDS: SODIUM CHLORIDE FLUSH 10ML SYR IVF SCH ×2 (08:41→20:01)
[2020-09-13 14:25] VITALS: BP 136/100
[2020-09-13] MEDS: ONDANSETRON ODT 4 MG PO PRN (15:05)
[2020-09-13 18:31] VITALS: BP 151/91
[2020-09-13] MEDS: MELATONIN 5 MG TABLET PO PRN (20:00)
[2020-09-14 00:03] VITALS: BP 137/73
[2020-09-14] MEDS: HEPARIN 5,000 UNITS/ML, 1ML SQ SCH ×3 (01:08→17:20)
[2020-09-14] MEDS ORDERED: INSULIN LISPRO 100 UNITS/ML, PEN SQ-INSULIN ONE (01:30)
[2020-09-14] MEDS ORDERED: INSULIN GLARGINE 100 UNITS/ML, PEN SQ-INSULIN ONE (01:30)
[2020-09-14 04:53] LABS: BASOPHILS % (AUTO) 2 % (0-1); EOSINOPHILS % (AUTO) 7 % (1-7); LYMPHOCYTES % (AUTO) 27 % (22-44); MEAN CORPUSCULAR HEMOGLOBIN 29.5 pg (27.0-34.8); MEAN CORPUSCULAR HGB CONC 32.9 g/dL (32.4-35.8); MEAN PLATELET VOLUME 10.7 fL (7.4-10.4); MONOCYTES % (AUTO) 10 % (2-9); NEUTROPHILS % (AUTO) 55 % (42-75); PLATELET COUNT 202 x10^3/uL (130-400); RED BLOOD COUNT 3.79 x10^6/uL (3.82-5.3); RED CELL DISTRIBUTION WIDTH 14.3 % (9.6-15.2)
[2020-09-14 05:03] LABS: ANION GAP 11 mmol/L (5-15); CALCIUM 8.6 mg/dL (8.5-10.1); CHLORIDE 99 mmol/L (98-107); CREATININE 6.62 mg/dL (0.55-1.02)
[2020-09-14 05:04] LABS: % IRON SATURATION 35 % (20-55); IRON LEVEL 63 mcg/dL (50-170); TOTAL IRON BINDING CAPACITY 180 mcg/dL (250-450)
[2020-09-14] MEDS: CARVEDILOL 12.5 MG TABLET PO SCH ×2 (05:48→17:19)
[2020-09-14] MEDS: LEVOTHYROXINE 100 MCG TABLET PO SCH (05:49)
[2020-09-14 05:58] VITALS: BP 153/82
[2020-09-14 07:37] VITALS: BP 169/95
[2020-09-14] MEDS: INSULIN LISPRO 100 UNITS/ML, PEN SQ-INSULIN SCH ×3 (08:24→16:00)
[2020-09-14] MEDS: LEVETIRACETAM 500 MG TABLET PO SCH ×2 (08:25→20:47)
[2020-09-14] MEDS: INSULIN GLARGINE 100 UNITS/ML, PEN SQ-INSULIN SCH ×2 (08:25→20:52)
[2020-09-14] MEDS: BUPROPION 100 MG TABLET PO SCH ×2 (08:25→20:47)
[2020-09-14] MEDS: SEVELAMER CARBONATE 800MG TAB PO SCH ×3 (08:25→17:19)
[2020-09-14] MEDS: HYDROCORTISONE 5 MG TABLET PO SCH (08:26)
[2020-09-14] MEDS: SODIUM CHLORIDE FLUSH 10ML SYR IVF SCH ×2 (08:27→20:47)
[2020-09-14] MEDS ORDERED: INSULIN REGULAR 100 UNITS/ML, 3ML VIAL IVPush PRN (08:30)
[2020-09-14 13:58] VITALS: BP 146/95
[2020-09-14 18:44] VITALS: BP 166/78
[2020-09-14 20:44] VITALS: BP 147/79
[2020-09-15 01:27] VITALS: BP 125/45
[2020-09-15] MEDS: HEPARIN 5,000 UNITS/ML, 1ML SQ SCH ×3 (01:52→17:20)
[2020-09-15 05:37] VITALS: BP 136/79
[2020-09-15] MEDS: CARVEDILOL 12.5 MG TABLET PO SCH ×2 (05:42→17:24)
[2020-09-15] MEDS: LEVOTHYROXINE 100 MCG TABLET PO SCH (05:42)
[2020-09-15 06:20] LABS: ALBUMIN 2.5 g/dL (3.4-5.0); ANION GAP 6 mmol/L (5-15); CHLORIDE 97 mmol/L (98-107)
[2020-09-15 06:25] LABS: CALCIUM 8.8 mg/dL (8.5-10.1); CREATININE 4.56 mg/dL (0.55-1.02)
[2020-09-15 07:05] VITALS: BP 100/74
[2020-09-15] MEDS: INSULIN LISPRO 100 UNITS/ML, PEN SQ-INSULIN SCH ×3 (08:39→17:20)
[2020-09-15] MEDS: BUPROPION 100 MG TABLET PO SCH ×2 (08:41→20:11)
[2020-09-15] MEDS: HYDROCORTISONE 5 MG TABLET PO SCH (08:41)
[2020-09-15] MEDS: LEVETIRACETAM 500 MG TABLET PO SCH ×2 (08:41→20:11)
[2020-09-15] MEDS: SEVELAMER CARBONATE 800MG TAB PO SCH (08:42)
[2020-09-15] MEDS: INSULIN GLARGINE 100 UNITS/ML, PEN SQ-INSULIN SCH ×2 (08:45→21:00)
[2020-09-15] MEDS: SODIUM CHLORIDE FLUSH 10ML SYR IVF SCH ×2 (08:48→20:12)
[2020-09-15] MEDS: DEXTROSE 4 GM TAB.CHEW PO PRN ×2 (11:41→20:19)
[2020-09-15 13:22] VITALS: BP 82/80
[2020-09-15 17:25] VITALS: BP 95/61
[2020-09-15 18:57] VITALS: BP 126/93
[2020-09-15] MEDS: ACETAMINOPHEN 325 MG TABLET PO PRN (20:19)
[2020-09-15] MEDS: ONDANSETRON ODT 4 MG PO PRN (20:19)
[2020-09-16] MEDS: HEPARIN 5,000 UNITS/ML, 1ML SQ SCH ×3 (01:50→19:41)
[2020-09-16] MEDS: ONDANSETRON ODT 4 MG PO PRN (01:51)
[2020-09-16 02:56] VITALS: BP 118/49
[2020-09-16 05:56] VITALS: BP 149/110
[2020-09-16] MEDS: CARVEDILOL 12.5 MG TABLET PO SCH ×2 (06:00→18:35)
[2020-09-16] MEDS: LEVOTHYROXINE 100 MCG TABLET PO SCH (06:01)
[2020-09-16 06:24] LABS: ANION GAP 7 mmol/L (5-15); CALCIUM 8.5 mg/dL (8.5-10.1); CHLORIDE 95 mmol/L (98-107)
[2020-09-16 06:25] LABS: CREATININE 6.31 mg/dL (0.55-1.02)
[2020-09-16 06:43] VITALS: BP 181/130
[2020-09-16] MEDS: HYDROCORTISONE 5 MG TABLET PO SCH (07:15)
[2020-09-16] MEDS: INSULIN LISPRO 100 UNITS/ML, PEN SQ-INSULIN SCH ×3 (07:19→14:14)
[2020-09-16] MEDS: INSULIN GLARGINE 100 UNITS/ML, PEN SQ-INSULIN SCH ×2 (09:00→20:51)
[2020-09-16] MEDS: LEVETIRACETAM 500 MG TABLET PO SCH ×2 (09:00→20:50)
[2020-09-16] MEDS: BUPROPION 100 MG TABLET PO SCH ×2 (09:51→20:50)
[2020-09-16] MEDS ORDERED: SODIUM ZIRCONIUM CYCLOSILICATE 10 GM PO ONE (10:00)
[2020-09-16] MEDS: DEXTROSE 50%, 50ML SYRINGE IVPush PRN ×2 (11:55→14:08)
[2020-09-16] MEDS: SODIUM CHLORIDE FLUSH 10ML SYR IVF SCH ×2 (12:02→19:42)
[2020-09-16 13:56] VITALS: BP 148/92
[2020-09-16 19:22] VITALS: BP 153/87
[2020-09-17 00:45] VITALS: BP 168/105
[2020-09-17] MEDS: hydrALAzine 20 MG/ML, 1ML IV PRN (01:07)
[2020-09-17] MEDS: DEXTROSE 50%, 50ML SYRINGE IVPush PRN (03:29)
[2020-09-17 03:46] VITALS: BP 139/83
[2020-09-17] MEDS: HEPARIN 5,000 UNITS/ML, 1ML SQ SCH ×3 (04:10→21:45)
[2020-09-17 04:23] LABS: ALBUMIN 2.5 g/dL (3.4-5.0); ANION GAP 7 mmol/L (5-15); CALCIUM 8.5 mg/dL (8.5-10.1); CHLORIDE 95 mmol/L (98-107); CREATININE 4.43 mg/dL (0.55-1.02)
[2020-09-17 04:38] LABS: BASOPHILS % (AUTO) 2 % (0-1); EOSINOPHILS % (AUTO) 11 % (1-7); LYMPHOCYTES % (AUTO) 28 % (22-44); MEAN CORPUSCULAR HEMOGLOBIN 29.8 pg (27.0-34.8); MEAN CORPUSCULAR HGB CONC 33.3 g/dL (32.4-35.8); MEAN PLATELET VOLUME 10.5 fL (7.4-10.4); MONOCYTES % (AUTO) 16 % (2-9); NEUTROPHILS % (AUTO) 43 % (42-75); PLATELET COUNT 185 x10^3/uL (130-400); RED CELL DISTRIBUTION WIDTH 14.4 % (9.6-15.2)
[2020-09-17 05:48] VITALS: BP 111/81
[2020-09-17] MEDS: LEVOTHYROXINE 100 MCG TABLET PO SCH (05:51)
[2020-09-17] MEDS: CARVEDILOL 12.5 MG TABLET PO SCH ×2 (05:51→18:10)
[2020-09-17] MEDS: DEXTROSE 4 GM TAB.CHEW PO PRN (06:21)
[2020-09-17 06:53] VITALS: BP 125/84
[2020-09-17] MEDS: HYDROCORTISONE 5 MG TABLET PO SCH (07:21)
[2020-09-17] MEDS: BUPROPION 100 MG TABLET PO SCH ×2 (08:44→21:45)
[2020-09-17] MEDS: LEVETIRACETAM 500 MG TABLET PO SCH ×2 (08:44→21:44)
[2020-09-17] MEDS: SODIUM CHLORIDE FLUSH 10ML SYR IVF SCH ×2 (08:45→21:40)
[2020-09-17] MEDS: INSULIN GLARGINE 100 UNITS/ML, PEN SQ-INSULIN SCH ×2 (08:53→21:39)
[2020-09-17] MEDS ORDERED: SODIUM ZIRCONIUM CYCLOSILICATE 10 GM PO SCH (10:00)
[2020-09-17] MEDS: INSULIN LISPRO 100 UNITS/ML, PEN SQ-INSULIN SCH ×2 (11:59→16:20)
[2020-09-17 13:09] VITALS: BP 139/88
[2020-09-17 20:00] VITALS: BP 121/71
[2020-09-18 02:55] VITALS: BP 116/43
[2020-09-18 03:23] LABS: BASOPHILS % (AUTO) 3 % (0-1); EOSINOPHILS % (AUTO) 9 % (1-7); LYMPHOCYTES % (AUTO) 34 % (22-44); MEAN CORPUSCULAR HEMOGLOBIN 29.7 pg (27.0-34.8); MEAN CORPUSCULAR HGB CONC 33.2 g/dL (32.4-35.8); MEAN PLATELET VOLUME 10.9 fL (7.4-10.4); MONOCYTES % (AUTO) 15 % (2-9); NEUTROPHILS % (AUTO) 39 % (42-75); PLATELET COUNT 172 x10^3/uL (130-400); RED CELL DISTRIBUTION WIDTH 14.6 % (9.6-15.2)
[2020-09-18 03:32] LABS: ALANINE AMINOTRANSFERASE 41 U/L (12-78); ALBUMIN 2.4 g/dL (3.4-5.0); ANION GAP 9 mmol/L (5-15); CALCIUM 8.3 mg/dL (8.5-10.1); CHLORIDE 92 mmol/L (98-107); CREATININE 5.97 mg/dL (0.55-1.02)
[2020-09-18 03:35] LABS: ALKALINE PHOSPHATASE 166 U/L (45-117); BILIRUBIN,TOTAL 0.2 mg/dL (0.2-1.0); TOTAL PROTEIN 6.3 g/dL (6.4-8.2)
[2020-09-18 06:15] VITALS: BP 121/52
[2020-09-18] MEDS: LEVOTHYROXINE 100 MCG TABLET PO SCH (06:17)
[2020-09-18] MEDS: HEPARIN 5,000 UNITS/ML, 1ML SQ SCH ×3 (06:17→20:16)
[2020-09-18] MEDS: CARVEDILOL 12.5 MG TABLET PO SCH ×2 (06:18→16:59)
[2020-09-18] MEDS: ONDANSETRON ODT 4 MG PO PRN (06:31)
[2020-09-18 07:26] VITALS: BP 101/52
[2020-09-18] MEDS ORDERED: SODIUM ZIRCONIUM CYCLOSILICATE 10 GM PO ONE (07:30)
[2020-09-18] MEDS: LEVETIRACETAM 500 MG TABLET PO SCH ×2 (08:25→20:16)
[2020-09-18] MEDS: BUPROPION 100 MG TABLET PO SCH ×2 (08:25→20:16)
[2020-09-18] MEDS: INSULIN LISPRO 100 UNITS/ML, PEN SQ-INSULIN SCH ×3 (08:25→16:00)
[2020-09-18] MEDS: HYDROCORTISONE 5 MG TABLET PO SCH (08:25)
[2020-09-18] MEDS: INSULIN GLARGINE 100 UNITS/ML, PEN SQ-INSULIN SCH ×2 (08:26→20:17)
[2020-09-18] MEDS: SODIUM CHLORIDE FLUSH 10ML SYR IVF SCH ×2 (08:31→20:20)
[2020-09-18] MEDS: SODIUM ZIRCONIUM CYCLOSILICATE 10 GM PO SCH ×3 (11:54→22:11)
[2020-09-18] MEDS: DARBEPOETIN 60 MCG/ML SQ SCH (12:58)
[2020-09-18 13:03] VITALS: BP 114/84
[2020-09-18] MEDS: CARVEDILOL 6.25 MG TABLET PO SCH (17:14)
[2020-09-18] MEDS: ACETAMINOPHEN 325 MG TABLET PO PRN (18:46)
[2020-09-18 19:15] VITALS: BP 139/90
[2020-09-19] VITALS (7 sets, daily range): BP systolic 92–165; BP diastolic 52–97
[2020-09-19 03:50] LABS: BASOPHILS % (AUTO) 1 % (0-1); EOSINOPHILS % (AUTO) 8 % (1-7); LYMPHOCYTES % (AUTO) 28 % (22-44); MEAN CORPUSCULAR HEMOGLOBIN 29.9 pg (27.0-34.8); MEAN CORPUSCULAR HGB CONC 33.6 g/dL (32.4-35.8); MEAN PLATELET VOLUME 11.4 fL (7.4-10.4); MONOCYTES % (AUTO) 12 % (2-9); NEUTROPHILS % (AUTO) 52 % (42-75); PLATELET COUNT 176 x10^3/uL (130-400); RED BLOOD COUNT 3.03 x10^6/uL (3.82-5.3); RED CELL DISTRIBUTION WIDTH 14.5 % (9.6-15.2)
[2020-09-19 03:55] LABS: ALBUMIN 2.5 g/dL (3.4-5.0); ANION GAP 12 mmol/L (5-15); CALCIUM 8.6 mg/dL (8.5-10.1); CHLORIDE 88 mmol/L (98-107); CREATININE 7.58 mg/dL (0.55-1.02)
[2020-09-19] MEDS: HEPARIN 5,000 UNITS/ML, 1ML SQ SCH ×3 (05:22→20:29)
[2020-09-19] MEDS: LEVOTHYROXINE 100 MCG TABLET PO SCH (05:23)
[2020-09-19] MEDS: CARVEDILOL 6.25 MG TABLET PO SCH ×2 (05:23→17:59)
[2020-09-19] MEDS: HYDROCORTISONE 5 MG TABLET PO SCH (07:30)
[2020-09-19] MEDS: INSULIN GLARGINE 100 UNITS/ML, PEN SQ-INSULIN SCH ×2 (07:53→20:18)
[2020-09-19] MEDS: BUPROPION 100 MG TABLET PO SCH ×2 (09:00→21:10)
[2020-09-19] MEDS: SODIUM CHLORIDE FLUSH 10ML SYR IVF SCH ×2 (09:00→21:10)
[2020-09-19] MEDS: LEVETIRACETAM 500 MG TABLET PO SCH ×2 (09:00→20:28)
[2020-09-19] MEDS: SODIUM ZIRCONIUM CYCLOSILICATE 10 GM PO SCH ×3 (09:00→23:07)
[2020-09-20] VITALS (7 sets, daily range): BP systolic 115–167; BP diastolic 72–112
[2020-09-20] MEDS: ONDANSETRON ODT 4 MG PO PRN (02:22)
[2020-09-20] MEDS: HEPARIN 5,000 UNITS/ML, 1ML SQ SCH ×3 (05:10→21:08)
[2020-09-20] MEDS: LEVOTHYROXINE 100 MCG TABLET PO SCH (05:11)
[2020-09-20] MEDS: CARVEDILOL 6.25 MG TABLET PO SCH ×2 (05:12→17:14)
[2020-09-20] MEDS: HYDROCORTISONE 5 MG TABLET PO SCH (08:44)
[2020-09-20] MEDS: BUPROPION 100 MG TABLET PO SCH ×2 (08:44→21:08)
[2020-09-20] MEDS: LEVETIRACETAM 500 MG TABLET PO SCH ×2 (08:44→21:08)
[2020-09-20] MEDS: SODIUM ZIRCONIUM CYCLOSILICATE 10 GM PO SCH (08:44)
[2020-09-20] MEDS: SODIUM CHLORIDE FLUSH 10ML SYR IVF SCH ×2 (08:45→21:08)
[2020-09-20] MEDS: INSULIN GLARGINE 100 UNITS/ML, PEN SQ-INSULIN SCH ×2 (08:45→21:09)
[2020-09-20] MEDS ORDERED: INSULIN LISPRO 100 UNITS/ML, PEN SQ-INSULIN ONE (17:00)
[2020-09-21 01:19] VITALS: BP 135/86
[2020-09-21] MEDS: DEXTROSE 4 GM TAB.CHEW PO PRN (03:41)
[2020-09-21 04:22] LABS: BASOPHILS % (AUTO) 2 % (0-1); EOSINOPHILS % (AUTO) 9 % (1-7); LYMPHOCYTES % (AUTO) 28 % (22-44); MEAN CORPUSCULAR HEMOGLOBIN 29.8 pg (27.0-34.8); MEAN CORPUSCULAR HGB CONC 33.4 g/dL (32.4-35.8); MEAN PLATELET VOLUME 11.1 fL (7.4-10.4); MONOCYTES % (AUTO) 14 % (2-9); NEUTROPHILS % (AUTO) 47 % (42-75); PLATELET COUNT 163 x10^3/uL (130-400); RED BLOOD COUNT 3.06 x10^6/uL (3.82-5.3); RED CELL DISTRIBUTION WIDTH 14.9 % (9.6-15.2)
[2020-09-21 04:29] LABS: ALBUMIN 2.8 g/dL (3.4-5.0); ANION GAP 8 mmol/L (5-15); CALCIUM 9.1 mg/dL (8.5-10.1); CHLORIDE 99 mmol/L (98-107)
[2020-09-21 04:33] LABS: ALANINE AMINOTRANSFERASE 74 U/L (12-78); ALKALINE PHOSPHATASE 392 U/L (45-117); BILIRUBIN,TOTAL 0.3 mg/dL (0.2-1.0); CREATININE 6.93 mg/dL (0.55-1.02)
[2020-09-21 05:54] VITALS: BP 122/80
[2020-09-21] MEDS: CARVEDILOL 6.25 MG TABLET PO SCH ×2 (05:57→18:34)
[2020-09-21] MEDS: LEVOTHYROXINE 100 MCG TABLET PO SCH (05:57)
[2020-09-21] MEDS: HEPARIN 5,000 UNITS/ML, 1ML SQ SCH ×3 (05:57→21:27)
[2020-09-21] MEDS: BUPROPION 100 MG TABLET PO SCH ×2 (08:27→21:05)
[2020-09-21] MEDS: SODIUM CHLORIDE FLUSH 10ML SYR IVF SCH ×2 (08:27→21:04)
[2020-09-21] MEDS: SODIUM ZIRCONIUM CYCLOSILICATE 10 GM PO SCH (08:28)
[2020-09-21] MEDS: LEVETIRACETAM 500 MG TABLET PO SCH ×2 (08:28→21:05)
[2020-09-21] MEDS: INSULIN GLARGINE 100 UNITS/ML, PEN SQ-INSULIN SCH (08:29)
[2020-09-21 09:30] VITALS: BP 134/78
[2020-09-21] MEDS: ONDANSETRON ODT 4 MG PO PRN (11:10)
[2020-09-21] MEDS: ACETAMINOPHEN 325 MG TABLET PO PRN (11:10)
[2020-09-21 12:32] VITALS: BP 95/61
[2020-09-21 19:01] VITALS: BP 99/60
[2020-09-21] MEDS ORDERED: INSULIN LISPRO 100 UNITS/ML, PEN SQ-INSULIN ONE (22:00)
[2020-09-22 00:16] VITALS: BP 91/58
[2020-09-22] MEDS: ONDANSETRON ODT 4 MG PO PRN ×3 (02:37→17:32)
[2020-09-22] MEDS: HEPARIN 5,000 UNITS/ML, 1ML SQ SCH ×3 (05:57→22:20)
[2020-09-22] MEDS: LEVOTHYROXINE 100 MCG TABLET PO SCH (05:57)
[2020-09-22] MEDS: CARVEDILOL 6.25 MG TABLET PO SCH ×2 (05:57→17:34)
[2020-09-22 07:12] VITALS: BP 152/62
[2020-09-22] MEDS ORDERED: HYDROCORTISONE 10 MG TABLET PO SCH (07:30)
[2020-09-22] MEDS ORDERED: INSULIN LISPRO 100 UNITS/ML, PEN SQ-INSULIN SCH (08:00)
[2020-09-22] MEDS: SODIUM CHLORIDE FLUSH 10ML SYR IVF SCH ×2 (09:31→22:21)
[2020-09-22] MEDS: LEVETIRACETAM 500 MG TABLET PO SCH ×2 (09:32→22:20)
[2020-09-22] MEDS: BUPROPION 100 MG TABLET PO SCH ×2 (09:32→22:20)
[2020-09-22] MEDS: SODIUM ZIRCONIUM CYCLOSILICATE 10 GM PO SCH (09:32)
[2020-09-22] MEDS ORDERED: HYDROCORTISONE 5 MG TABLET PO SCH (12:00)
[2020-09-22] MEDS ORDERED: MAALOX/HYOSCYAMINE/LIDOCAINE 45 ML BTL PO ONE (13:00)
[2020-09-22 13:24] VITALS: BP 136/79
[2020-09-22] MEDS ORDERED: PHARMACY MAY ADJ FOR RENAL FX MC PRN (17:30)
[2020-09-22 20:26] VITALS: BP 165/93
[2020-09-22] MEDS ORDERED: INSULIN LISPRO 100 UNITS/ML, PEN SQ-INSULIN ONE (21:00)
[2020-09-23 02:02] VITALS: BP 96/68
[2020-09-23] MEDS: ACETAMINOPHEN 325 MG TABLET PO PRN (02:05)
[2020-09-23] MEDS: HEPARIN 5,000 UNITS/ML, 1ML SQ SCH ×3 (05:03→20:38)
[2020-09-23] MEDS: CARVEDILOL 6.25 MG TABLET PO SCH ×2 (05:03→18:48)
[2020-09-23] MEDS: LEVOTHYROXINE 100 MCG TABLET PO SCH (05:04)
[2020-09-23] MEDS: HYDROCORTISONE 5 MG TABLET PO SCH ×2 (05:04→13:55)
[2020-09-23 05:37] LABS: ALBUMIN 2.7 g/dL (3.4-5.0); ANION GAP 9 mmol/L (5-15); CALCIUM 9.5 mg/dL (8.5-10.1); CHLORIDE 100 mmol/L (98-107)
[2020-09-23 05:41] LABS: ALANINE AMINOTRANSFERASE 74 U/L (12-78); ALKALINE PHOSPHATASE 472 U/L (45-117); BILIRUBIN,TOTAL 0.3 mg/dL (0.2-1.0); CREATININE 6.65 mg/dL (0.55-1.02); TOTAL PROTEIN 7.2 g/dL (6.4-8.2)
[2020-09-23 05:46] LABS: BASOPHILS % (AUTO) 2 % (0-1); EOSINOPHILS % (AUTO) 8 % (1-7); LYMPHOCYTES % (AUTO) 33 % (22-44); MEAN CORPUSCULAR HGB CONC 33.4 g/dL (32.4-35.8); MEAN PLATELET VOLUME 11.7 fL (7.4-10.4); MONOCYTES % (AUTO) 12 % (2-9); NEUTROPHILS % (AUTO) 46 % (42-75); PLATELET COUNT 185 x10^3/uL (130-400); RED BLOOD COUNT 2.94 x10^6/uL (3.82-5.3); RED CELL DISTRIBUTION WIDTH 14.5 % (9.6-15.2)
[2020-09-23 08:00] VITALS: BP 155/99
[2020-09-23] MEDS: BUPROPION 100 MG TABLET PO SCH ×2 (09:00→20:38)
[2020-09-23] MEDS: SODIUM CHLORIDE FLUSH 10ML SYR IVF SCH ×2 (09:00→20:39)
[2020-09-23] MEDS: FAMOTIDINE 20 MG TABLET PO SCH (09:00)
[2020-09-23] MEDS: LEVETIRACETAM 500 MG TABLET PO SCH ×2 (09:00→20:38)
[2020-09-23] MEDS: SODIUM ZIRCONIUM CYCLOSILICATE 10 GM PO SCH (09:00)
[2020-09-23 15:04] VITALS: BP 147/74
[2020-09-23] MEDS ORDERED: INSULIN LISPRO 100 UNIT/ML, 3ML VIAL SQ-INSULIN ONE (16:30)
[2020-09-23 18:46] VITALS: BP 181/121
[2020-09-23] MEDS: hydrALAzine 20 MG/ML, 1ML IV PRN (19:15)
[2020-09-23 19:16] VITALS: BP 179/109
[2020-09-23] MEDS ORDERED: INSULIN LISPRO 100 UNIT/ML, 3ML VIAL SQ ONE (20:30)
[2020-09-23] MEDS ORDERED: INSULIN LISPRO 100 UNITS/ML, PEN SQ-INSULIN ONE (20:30)
[2020-09-24 00:42] VITALS: BP 163/98
[2020-09-24] MEDS: HEPARIN 5,000 UNITS/ML, 1ML SQ SCH ×3 (05:15→20:34)
[2020-09-24] MEDS: HYDROCORTISONE 5 MG TABLET PO SCH ×2 (05:15→12:33)
[2020-09-24] MEDS: LEVOTHYROXINE 100 MCG TABLET PO SCH (05:16)
[2020-09-24] MEDS: CARVEDILOL 6.25 MG TABLET PO SCH ×2 (05:16→18:31)
[2020-09-24 06:49] VITALS: BP 175/104
[2020-09-24 07:32] LABS: ALANINE AMINOTRANSFERASE 64 U/L (12-78); ANION GAP 15 mmol/L (5-15); CALCIUM 9.7 mg/dL (8.5-10.1); CHLORIDE 99 mmol/L (98-107); CREATININE 4.97 mg/dL (0.55-1.02)
[2020-09-24 07:34] LABS: ALKALINE PHOSPHATASE 432 U/L (45-117); BILIRUBIN,TOTAL 0.4 mg/dL (0.2-1.0); TOTAL PROTEIN 7.5 g/dL (6.4-8.2)
[2020-09-24] MEDS: INSULIN LISPRO 100 UNITS/ML, PEN SQ-INSULIN SCH ×3 (08:04→16:19)
[2020-09-24] MEDS: FAMOTIDINE 20 MG TABLET PO SCH (08:04)
[2020-09-24] MEDS: LEVETIRACETAM 500 MG TABLET PO SCH ×2 (08:04→20:33)
[2020-09-24] MEDS: SODIUM CHLORIDE FLUSH 10ML SYR IVF SCH ×2 (08:05→20:33)
[2020-09-24] MEDS: BUPROPION 100 MG TABLET PO SCH ×2 (08:05→20:33)
[2020-09-24] MEDS: hydrALAzine 20 MG/ML, 1ML IV PRN ×2 (09:03→18:31)
[2020-09-24 10:10] VITALS: BP 143/89
[2020-09-24] MEDS: SODIUM ZIRCONIUM CYCLOSILICATE 10 GM PO SCH (10:11)
[2020-09-24 12:10] VITALS: BP 133/83
[2020-09-24 18:19] VITALS: BP 158/107
[2020-09-24 18:48] VITALS: BP 120/77
[2020-09-25 00:16] VITALS: BP 140/79
[2020-09-25 04:44] LABS: BASOPHILS % (AUTO) 2 % (0-1); EOSINOPHILS % (AUTO) 4 % (1-7); LYMPHOCYTES % (AUTO) 27 % (22-44); MEAN CORPUSCULAR HEMOGLOBIN 30.1 pg (27.0-34.8); MEAN CORPUSCULAR HGB CONC 32.4 g/dL (32.4-35.8); MEAN PLATELET VOLUME 11.2 fL (7.4-10.4); MONOCYTES % (AUTO) 10 % (2-9); NEUTROPHILS % (AUTO) 57 % (42-75); PLATELET COUNT 237 x10^3/uL (130-400); RED BLOOD COUNT 3.18 x10^6/uL (3.82-5.3); RED CELL DISTRIBUTION WIDTH 15.1 % (9.6-15.2)
[2020-09-25 04:56] LABS: ALANINE AMINOTRANSFERASE 48 U/L (12-78); ALBUMIN 2.9 g/dL (3.4-5.0); ANION GAP 21 mmol/L (5-15); CALCIUM 9.3 mg/dL (8.5-10.1); CHLORIDE 94 mmol/L (98-107); CREATININE 6.54 mg/dL (0.55-1.02)
[2020-09-25 05:00] LABS: ALKALINE PHOSPHATASE 367 U/L (45-117); BILIRUBIN,TOTAL 0.4 mg/dL (0.2-1.0); TOTAL PROTEIN 7.2 g/dL (6.4-8.2)
[2020-09-25] MEDS: HEPARIN 5,000 UNITS/ML, 1ML SQ SCH ×3 (05:17→20:45)
[2020-09-25] MEDS: LEVOTHYROXINE 100 MCG TABLET PO SCH (05:18)
[2020-09-25] MEDS: HYDROCORTISONE 5 MG TABLET PO SCH ×2 (05:18→12:26)
[2020-09-25] MEDS: INSULIN LISPRO 100 UNITS/ML, PEN SQ-INSULIN SCH ×6 (05:19→20:46)
[2020-09-25] MEDS: CARVEDILOL 6.25 MG TABLET PO SCH ×2 (05:19→18:05)
[2020-09-25] MEDS: SODIUM CHLORIDE 0.9% 1,000 ML IV SCH ×2 (06:24→16:26)
[2020-09-25] MEDS ORDERED: INSULIN LISPRO 100 UNITS/ML, PEN SQ-INSULIN ONE ×2 (06:30→13:00)
[2020-09-25 08:09] VITALS: BP 102/78
[2020-09-25] MEDS: ONDANSETRON ODT 4 MG PO PRN (08:18)
[2020-09-25] MEDS: LEVETIRACETAM 500 MG TABLET PO SCH ×2 (09:20→20:44)
[2020-09-25] MEDS: FAMOTIDINE 20 MG TABLET PO SCH (09:21)
[2020-09-25] MEDS: SODIUM ZIRCONIUM CYCLOSILICATE 10 GM PO SCH (09:21)
[2020-09-25] MEDS: BUPROPION 100 MG TABLET PO SCH ×2 (09:21→20:44)
[2020-09-25] MEDS: SODIUM CHLORIDE FLUSH 10ML SYR IVF SCH ×2 (10:28→20:44)
[2020-09-25] MEDS: DARBEPOETIN 60 MCG/ML SQ SCH (10:42)
[2020-09-25 13:08] LABS: CHLORIDE 98 mmol/L (98-107)
[2020-09-25 13:10] VITALS: BP 123/82
[2020-09-25 13:12] LABS: ANION GAP 12 mmol/L (5-15); CREATININE 7.03 mg/dL (0.55-1.02)
[2020-09-25 18:55] VITALS: BP 136/82
[2020-09-25] MEDS ORDERED: DIPHENHYDRAMINE 50 MG CAPSULE PO ONE (22:00)
[2020-09-26 02:00] VITALS: BP 124/68
[2020-09-26] MEDS: SODIUM CHLORIDE 0.9% 1,000 ML IV SCH (02:27)
[2020-09-26 04:53] LABS: BASOPHILS % (AUTO) 0 % (0-1); EOSINOPHILS % (AUTO) 8 % (1-7); LYMPHOCYTES % (AUTO) 34 % (22-44); MEAN CORPUSCULAR HEMOGLOBIN 30.1 pg (27.0-34.8); MEAN CORPUSCULAR HGB CONC 32.8 g/dL (32.4-35.8); MEAN PLATELET VOLUME 10.8 fL (7.4-10.4); MONOCYTES % (AUTO) 8 % (2-9); NEUTROPHILS % (AUTO) 50 % (42-75); PLATELET COUNT 220 x10^3/uL (130-400); RED BLOOD COUNT 2.88 x10^6/uL (3.82-5.3); RED CELL DISTRIBUTION WIDTH 15.1 % (9.6-15.2)
[2020-09-26 05:04] LABS: ALANINE AMINOTRANSFERASE 44 U/L (12-78); ALBUMIN 2.6 g/dL (3.4-5.0); ANION GAP 12 mmol/L (5-15); CALCIUM 8.9 mg/dL (8.5-10.1); CHLORIDE 102 mmol/L (98-107)
[2020-09-26 05:06] LABS: ALKALINE PHOSPHATASE 299 U/L (45-117); BILIRUBIN,TOTAL 0.3 mg/dL (0.2-1.0); TOTAL PROTEIN 6.6 g/dL (6.4-8.2)
[2020-09-26] MEDS: LEVOTHYROXINE 100 MCG TABLET PO SCH (05:27)
[2020-09-26] MEDS: HEPARIN 5,000 UNITS/ML, 1ML SQ SCH ×3 (05:27→21:21)
[2020-09-26] MEDS: CARVEDILOL 6.25 MG TABLET PO SCH ×2 (05:27→18:27)
[2020-09-26] MEDS: HYDROCORTISONE 5 MG TABLET PO SCH ×2 (05:28→12:31)
[2020-09-26 07:05] VITALS: BP 126/75
[2020-09-26] MEDS: INSULIN LISPRO 100 UNITS/ML, PEN SQ-INSULIN SCH ×6 (09:05→21:22)
[2020-09-26] MEDS: SODIUM CHLORIDE FLUSH 10ML SYR IVF SCH ×2 (10:02→21:22)
[2020-09-26] MEDS: LEVETIRACETAM 500 MG TABLET PO SCH ×2 (10:40→21:21)
[2020-09-26] MEDS: BUPROPION 100 MG TABLET PO SCH ×2 (10:40→21:20)
[2020-09-26] MEDS: SODIUM ZIRCONIUM CYCLOSILICATE 10 GM PO SCH (10:40)
[2020-09-26] MEDS: FAMOTIDINE 20 MG TABLET PO SCH (10:40)
[2020-09-26 13:16] VITALS: BP 116/82
[2020-09-26] MEDS ORDERED: INSULIN LISPRO 100 UNITS/ML, PEN SQ-INSULIN SCH ×2 (16:00)
[2020-09-26 19:09] VITALS: BP 124/78
[2020-09-27 00:08] VITALS: BP 129/81
[2020-09-27 06:06] VITALS: BP 108/60
[2020-09-27] MEDS: HYDROCORTISONE 5 MG TABLET PO SCH ×2 (06:16→12:23)
[2020-09-27] MEDS: HEPARIN 5,000 UNITS/ML, 1ML SQ SCH ×3 (06:16→21:01)
[2020-09-27] MEDS: LEVOTHYROXINE 100 MCG TABLET PO SCH (06:17)
[2020-09-27] MEDS: CARVEDILOL 6.25 MG TABLET PO SCH ×2 (06:17→17:43)
[2020-09-27 08:27] LABS: ANION GAP 17 mmol/L (5-15); CALCIUM 8.7 mg/dL (8.5-10.1); CHLORIDE 99 mmol/L (98-107); CREATININE 4.93 mg/dL (0.55-1.02)
[2020-09-27 08:40] VITALS: BP 131/37
[2020-09-27] MEDS: FAMOTIDINE 20 MG TABLET PO SCH (08:51)
[2020-09-27] MEDS: INSULIN LISPRO 100 UNITS/ML, PEN SQ-INSULIN SCH ×7 (08:51→21:00)
[2020-09-27] MEDS: LEVETIRACETAM 500 MG TABLET PO SCH ×2 (08:52→20:59)
[2020-09-27] MEDS: SODIUM ZIRCONIUM CYCLOSILICATE 10 GM PO SCH (08:52)
[2020-09-27] MEDS: SODIUM CHLORIDE FLUSH 10ML SYR IVF SCH ×2 (08:52→20:58)
[2020-09-27] MEDS: BUPROPION 100 MG TABLET PO SCH ×2 (08:53→20:59)
[2020-09-27 09:48] VITALS: BP 131/48
[2020-09-27 13:42] VITALS: BP_SYST 124; BP_SYST 130; BP_DIAS 68; BP_DIAS 78
[2020-09-27 19:17] VITALS: BP 118/60
[2020-09-27] MEDS: INSULIN GLARGINE 100 UNITS/ML, PEN SQ-INSULIN SCH (21:01)
[2020-09-27 22:18] LABS: ANION GAP 18 mmol/L (5-15); CALCIUM 8.6 mg/dL (8.5-10.1); CHLORIDE 96 mmol/L (98-107); CREATININE 6.23 mg/dL (0.55-1.02)
[2020-09-28] VITALS (7 sets, daily range): BP systolic 116–183; BP diastolic 44–109
[2020-09-28] MEDS: MELATONIN 5 MG TABLET PO PRN (01:49)
[2020-09-28 05:38] LABS: ANION GAP 12 mmol/L (5-15); CALCIUM 9.1 mg/dL (8.5-10.1); CHLORIDE 100 mmol/L (98-107); CREATININE 6.68 mg/dL (0.55-1.02)
[2020-09-28] MEDS: HYDROCORTISONE 5 MG TABLET PO SCH ×2 (06:00→12:00)
[2020-09-28] MEDS: LEVOTHYROXINE 100 MCG TABLET PO SCH (06:22)
[2020-09-28] MEDS: CARVEDILOL 6.25 MG TABLET PO SCH ×2 (06:22→18:00)
[2020-09-28] MEDS: HEPARIN 5,000 UNITS/ML, 1ML SQ SCH ×3 (06:23→22:00)
[2020-09-28] MEDS ORDERED: POTASSIUM CHLORIDE 40 MEQ in SODIUM CHLORIDE 0.9% 500 ML IV ONE (07:00)
[2020-09-28] MEDS: SODIUM ZIRCONIUM CYCLOSILICATE 10 GM PO SCH (08:52)
[2020-09-28] MEDS: BUPROPION 100 MG TABLET PO SCH ×2 (08:53→21:00)
[2020-09-28] MEDS: FAMOTIDINE 20 MG TABLET PO SCH (08:53)
[2020-09-28] MEDS: LEVETIRACETAM 500 MG TABLET PO SCH ×2 (08:53→21:00)
[2020-09-28] MEDS: INSULIN LISPRO 100 UNITS/ML, PEN SQ-INSULIN SCH ×7 (08:53→20:27)
[2020-09-28] MEDS: SODIUM CHLORIDE FLUSH 10ML SYR IVF SCH ×2 (08:54→20:21)
[2020-09-28 19:25] LABS: ANION GAP 16 mmol/L (5-15); CALCIUM 8.5 mg/dL (8.5-10.1); CHLORIDE 97 mmol/L (98-107)
[2020-09-28 19:27] LABS: CREATININE 3.42 mg/dL (0.55-1.02)
[2020-09-28] MEDS ORDERED: SODIUM CHLORIDE 0.9% 1,000ML IVBOLUS ONE (20:00)
[2020-09-28] MEDS ORDERED: INSULIN LISPRO 100 UNIT/ML, 3ML VIAL SQ-INSULIN ONE (20:30)
[2020-09-28] MEDS: INSULIN GLARGINE 100 UNITS/ML, PEN SQ-INSULIN SCH (21:18)
[2020-09-28] MEDS: ACETAMINOPHEN 325 MG TABLET PO PRN (23:14)
[2020-09-28] MEDS: ONDANSETRON ODT 4 MG PO PRN (23:15)
[2020-09-28] MEDS: hydrALAzine 20 MG/ML, 1ML IV PRN (23:25)
[2020-09-28] MEDS ORDERED: INSULIN LISPRO 100 UNITS/ML, PEN SQ-INSULIN ONE (23:30)
[2020-09-29] MEDS ORDERED: SODIUM CHLORIDE 0.9% 1,000ML IVBOLUS ONE
[2020-09-29] MEDS ORDERED: INSULIN LISPRO 100 UNIT/ML, 3ML VIAL IVPush ONE
[2020-09-29 00:24] LABS: ANION GAP 16 mmol/L (5-15); CALCIUM 8.1 mg/dL (8.5-10.1); CHLORIDE 98 mmol/L (98-107); CREATININE 3.82 mg/dL (0.55-1.02)
[2020-09-29 00:37] VITALS: BP 111/62
[2020-09-29 00:38] LABS: ACETONE, SERUM Large (80mg/dL) (Negative)
[2020-09-29] MEDS ORDERED: GLUCAGON 1 MG IM PRN (02:30)
[2020-09-29] MEDS ORDERED: MORPHINE SULFATE 4 MG/ML, 1ML IVPush PRN (02:30)
[2020-09-29] MEDS ORDERED: REGULAR INSULIN 100 UNITS in SODIUM CHLORIDE 0.9% 99 ML IV PRN (02:30)
[2020-09-29] MEDS ORDERED: D5%-0.45NACL+KCL 20MEQ 1,000 ML IV SCH (02:30)
[2020-09-29 03:30] LABS: BASOPHILS % (AUTO) 1 % (0-1); EOSINOPHILS % (AUTO) 4 % (1-7); LYMPHOCYTES % (AUTO) 26 % (22-44); MEAN CORPUSCULAR HGB CONC 32.7 g/dL (32.4-35.8); MEAN PLATELET VOLUME 10.6 fL (7.4-10.4); MONOCYTES % (AUTO) 14 % (2-9); NEUTROPHILS % (AUTO) 55 % (42-75); PLATELET COUNT 202 x10^3/uL (130-400); RED BLOOD COUNT 2.81 x10^6/uL (3.82-5.3); RED CELL DISTRIBUTION WIDTH 15.9 % (9.6-15.2)
[2020-09-29 03:39] LABS: ANION GAP 10 mmol/L (5-15); CALCIUM 8.3 mg/dL (8.5-10.1); CHLORIDE 103 mmol/L (98-107); CREATININE 3.97 mg/dL (0.55-1.02)
[2020-09-29] MEDS: HYDROcodone/APAP 5/325 TABLET PO PRN (03:56)
[2020-09-29] MEDS: HYDROCORTISONE 5 MG TABLET PO SCH ×2 (06:00→14:42)
[2020-09-29] MEDS: HEPARIN 5,000 UNITS/ML, 1ML SQ SCH ×3 (06:12→21:09)
[2020-09-29] MEDS ORDERED: HYDROCORTISONE 10 MG TABLET ONE ×2 (06:33→14:36)
[2020-09-29] MEDS: CARVEDILOL 6.25 MG TABLET PO SCH ×2 (06:36→18:00)
[2020-09-29] MEDS: LEVOTHYROXINE 100 MCG TABLET PO SCH (06:36)
[2020-09-29] MEDS: INSULIN LISPRO 100 UNITS/ML, PEN SQ-INSULIN SCH ×5 (07:00→23:00)
[2020-09-29] MEDS: SODIUM ZIRCONIUM CYCLOSILICATE 10 GM PO SCH ×2 (09:00→11:34)
[2020-09-29] MEDS: BUPROPION 100 MG TABLET PO SCH ×2 (09:04→21:11)
[2020-09-29] MEDS: FAMOTIDINE 20 MG TABLET PO SCH (09:04)
[2020-09-29] MEDS: LEVETIRACETAM 500 MG TABLET PO SCH ×2 (09:04→21:11)
[2020-09-29] MEDS: SODIUM CHLORIDE FLUSH 10ML SYR IVF SCH ×2 (09:05→21:12)
[2020-09-29] MEDS ORDERED: HYDROCORTISONE 20 MG TABLET ONE (14:36)
[2020-09-29 15:00] VITALS: BP 176/100
[2020-09-29 19:18] VITALS: BP_SYST 126; BP_SYST 132; BP_DIAS 84; BP_DIAS 89
[2020-09-30 02:07] VITALS: BP 123/69
[2020-09-30 03:24] LABS: ALANINE AMINOTRANSFERASE 29 U/L (12-78); ALBUMIN 2.6 g/dL (3.4-5.0); ANION GAP 13 mmol/L (5-15); C-REACTIVE PROTEIN, QUANT 0.46 mg/dL (0.02-0.49); CALCIUM 8.7 mg/dL (8.5-10.1); CHLORIDE 102 mmol/L (98-107); CREATININE 5.31 mg/dL (0.55-1.02)
[2020-09-30 03:26] LABS: ALKALINE PHOSPHATASE 227 U/L (45-117); BILIRUBIN,TOTAL 0.3 mg/dL (0.2-1.0); TOTAL PROTEIN 6.4 g/dL (6.4-8.2)
[2020-09-30] MEDS: INSULIN LISPRO 100 UNITS/ML, PEN SQ-INSULIN SCH ×5 (04:24→20:40)
[2020-09-30 06:25] VITALS: BP 135/84
[2020-09-30] MEDS: HEPARIN 5,000 UNITS/ML, 1ML SQ SCH ×3 (06:28→20:39)
[2020-09-30] MEDS: CARVEDILOL 6.25 MG TABLET PO SCH ×2 (06:29→17:56)
[2020-09-30] MEDS: LEVOTHYROXINE 100 MCG TABLET PO SCH (06:29)
[2020-09-30] MEDS: HYDROCORTISONE 5 MG TABLET PO SCH ×2 (06:30→12:34)
[2020-09-30] MEDS: LEVETIRACETAM 500 MG TABLET PO SCH ×2 (12:34→20:38)
[2020-09-30] MEDS: BUPROPION 100 MG TABLET PO SCH ×2 (12:34→20:39)
[2020-09-30] MEDS: FAMOTIDINE 20 MG TABLET PO SCH (12:34)
[2020-09-30] MEDS: SODIUM ZIRCONIUM CYCLOSILICATE 10 GM PO SCH (12:35)
[2020-09-30] MEDS: SODIUM CHLORIDE FLUSH 10ML SYR IVF SCH ×2 (14:32→20:40)
[2020-09-30 15:33] VITALS: BP 155/76
[2020-09-30 19:10] VITALS: BP 132/71
[2020-09-30] MEDS: MELATONIN 5 MG TABLET PO PRN (20:38)
[2020-10-01 00:30] VITALS: BP 147/80
[2020-10-01 04:37] LABS: BASOPHILS % (AUTO) 1 % (0-1); EOSINOPHILS % (AUTO) 10 % (1-7); LYMPHOCYTES % (AUTO) 27 % (22-44); MEAN CORPUSCULAR HEMOGLOBIN 30.1 pg (27.0-34.8); MEAN CORPUSCULAR HGB CONC 32.8 g/dL (32.4-35.8); MEAN PLATELET VOLUME 10.5 fL (7.4-10.4); MONOCYTES % (AUTO) 11 % (2-9); NEUTROPHILS % (AUTO) 51 % (42-75); PLATELET COUNT 228 x10^3/uL (130-400); RED BLOOD COUNT 2.89 x10^6/uL (3.82-5.3); RED CELL DISTRIBUTION WIDTH 15.8 % (9.6-15.2)
[2020-10-01] MEDS: INSULIN LISPRO 100 UNITS/ML, PEN SQ-INSULIN SCH ×6 (04:41→20:53)
[2020-10-01] MEDS: HEPARIN 5,000 UNITS/ML, 1ML SQ SCH ×3 (04:41→20:52)
[2020-10-01] MEDS: LEVOTHYROXINE 100 MCG TABLET PO SCH (04:41)
[2020-10-01] MEDS: CARVEDILOL 6.25 MG TABLET PO SCH ×2 (04:42→17:34)
[2020-10-01] MEDS: HYDROCORTISONE 5 MG TABLET PO SCH ×2 (04:42→12:09)
[2020-10-01 04:47] LABS: ALANINE AMINOTRANSFERASE 30 U/L (12-78); ALBUMIN 2.7 g/dL (3.4-5.0); ANION GAP 11 mmol/L (5-15); CALCIUM 8.7 mg/dL (8.5-10.1); CHLORIDE 102 mmol/L (98-107); CREATININE 4.53 mg/dL (0.55-1.02)
[2020-10-01 04:49] LABS: ALKALINE PHOSPHATASE 230 U/L (45-117); BILIRUBIN,TOTAL 0.3 mg/dL (0.2-1.0); TOTAL PROTEIN 6.6 g/dL (6.4-8.2)
[2020-10-01 07:28] VITALS: BP 147/98
[2020-10-01] MEDS: FAMOTIDINE 20 MG TABLET PO SCH (08:38)
[2020-10-01] MEDS: BUPROPION 100 MG TABLET PO SCH ×2 (08:39→20:51)
[2020-10-01] MEDS: SODIUM CHLORIDE FLUSH 10ML SYR IVF SCH ×2 (08:39→20:53)
[2020-10-01] MEDS: LEVETIRACETAM 500 MG TABLET PO SCH ×2 (08:39→20:52)
[2020-10-01] MEDS: HYDROcodone/APAP 5/325 TABLET PO PRN (12:15)
[2020-10-01 13:01] VITALS: BP 166/108
[2020-10-01 18:34] VITALS: BP 157/93
[2020-10-01] MEDS: INSULIN GLARGINE 100 UNITS/ML, PEN SQ-INSULIN SCH (20:52)
[2020-10-01] MEDS: MELATONIN 5 MG TABLET PO PRN (20:52)
[2020-10-02 03:50] VITALS: BP 151/82
[2020-10-02] MEDS: INSULIN LISPRO 100 UNITS/ML, PEN SQ-INSULIN SCH ×6 (03:55→20:37)
[2020-10-02 04:03] LABS: ANION GAP 9 mmol/L (5-15); CALCIUM 8.6 mg/dL (8.5-10.1); CHLORIDE 103 mmol/L (98-107); CREATININE 5.96 mg/dL (0.55-1.02)
[2020-10-02] MEDS: LEVOTHYROXINE 100 MCG TABLET PO SCH (04:19)
[2020-10-02] MEDS: HEPARIN 5,000 UNITS/ML, 1ML SQ SCH ×3 (04:19→23:01)
[2020-10-02] MEDS: CARVEDILOL 6.25 MG TABLET PO SCH ×2 (04:19→17:45)
[2020-10-02] MEDS: HYDROCORTISONE 5 MG TABLET PO SCH ×2 (04:20→12:00)
[2020-10-02 06:53] VITALS: BP 149/103
[2020-10-02] MEDS: SODIUM CHLORIDE FLUSH 10ML SYR IVF SCH ×2 (09:48→20:37)
[2020-10-02] MEDS: FAMOTIDINE 20 MG TABLET PO SCH (09:48)
[2020-10-02] MEDS: LEVETIRACETAM 500 MG TABLET PO SCH ×2 (09:48→20:37)
[2020-10-02] MEDS: BUPROPION 100 MG TABLET PO SCH ×2 (09:48→20:35)
[2020-10-02] MEDS: DARBEPOETIN 60 MCG/ML SQ SCH (11:32)
[2020-10-02 12:27] VITALS: BP 154/104
[2020-10-02] MEDS: HYDROcodone/APAP 5/325 TABLET PO PRN ×2 (14:19→20:36)
[2020-10-02] MEDS: DIPHENHYDRAMINE/ZINC CRM 2%, 30GM TP PRN (16:42)
[2020-10-02] MEDS: MELATONIN 5 MG TABLET PO PRN (20:35)
[2020-10-02] MEDS: INSULIN GLARGINE 100 UNITS/ML, PEN SQ-INSULIN SCH (20:36)
[2020-10-02 21:32] VITALS: BP 138/75
[2020-10-03] MEDS: INSULIN LISPRO 100 UNITS/ML, PEN SQ-INSULIN SCH ×6 (03:34→22:23)
[2020-10-03 03:48] VITALS: BP 131/83
[2020-10-03 04:44] LABS: ANION GAP 11 mmol/L (5-15); CALCIUM 8.5 mg/dL (8.5-10.1); CHLORIDE 103 mmol/L (98-107); CREATININE 7.54 mg/dL (0.55-1.02)
[2020-10-03] MEDS ORDERED: HYDROCORTISONE 10 MG TABLET ONE ×3 (05:49→11:45)
[2020-10-03] MEDS: HYDROCORTISONE 5 MG TABLET PO SCH ×2 (06:02→11:47)
[2020-10-03] MEDS: HEPARIN 5,000 UNITS/ML, 1ML SQ SCH ×3 (06:04→22:27)
[2020-10-03] MEDS: LEVOTHYROXINE 100 MCG TABLET PO SCH (06:04)
[2020-10-03] MEDS: CARVEDILOL 6.25 MG TABLET PO SCH ×2 (06:04→17:40)
[2020-10-03] MEDS: DIPHENHYDRAMINE/ZINC CRM 2%, 30GM TP PRN ×2 (06:11→09:17)
[2020-10-03 06:45] VITALS: BP 156/95
[2020-10-03] MEDS: LEVETIRACETAM 500 MG TABLET PO SCH ×2 (08:08→22:24)
[2020-10-03] MEDS: SODIUM CHLORIDE FLUSH 10ML SYR IVF SCH ×2 (08:08→22:24)
[2020-10-03] MEDS: BUPROPION 100 MG TABLET PO SCH ×2 (08:08→22:26)
[2020-10-03] MEDS: FAMOTIDINE 20 MG TABLET PO SCH (08:09)
[2020-10-03] MEDS: INSULIN LISPRO 100 UNIT/ML, 3ML VIAL SQ-INSULIN SCH ×2 (11:00→16:00)
[2020-10-03] MEDS: DOCUSATE 100 MG CAPSULE PO SCH ×2 (11:47→22:24)
[2020-10-03] MEDS: POLYETHYLENE GLYCOL 17 GM PACKET PO SCH (11:47)
[2020-10-03 12:10] VITALS: BP 128/87
[2020-10-03 14:31] LABS: FREE T4 (FREE THYROXINE) 0.89 ng/dL (0.76-1.46)
[2020-10-03] MEDS: hydrALAzine 20 MG/ML, 1ML IV PRN (20:20)
[2020-10-03 20:23] VITALS: BP 200/116
[2020-10-03 22:09] VITALS: BP 156/91
[2020-10-03] MEDS: INSULIN GLARGINE 100 UNITS/ML, PEN SQ-INSULIN SCH (22:26)
[2020-10-04 00:58] VITALS: BP 143/79
[2020-10-04] MEDS: INSULIN LISPRO 100 UNITS/ML, PEN SQ-INSULIN SCH ×6 (02:00→23:32)
[2020-10-04] MEDS ORDERED: INSULIN LISPRO 100 UNITS/ML, PEN SQ-INSULIN ONE (03:30)
[2020-10-04] MEDS: ONDANSETRON 2MG/ML, 2ML IVPush PRN ×2 (03:37→21:27)
[2020-10-04] MEDS: HYDROCORTISONE 5 MG TABLET PO SCH ×2 (06:00→11:52)
[2020-10-04] MEDS ORDERED: HYDROCORTISONE 10 MG TABLET ONE ×2 (06:10→11:48)
[2020-10-04] MEDS: CARVEDILOL 6.25 MG TABLET PO SCH ×2 (06:17→17:52)
[2020-10-04] MEDS: LEVOTHYROXINE 100 MCG TABLET PO SCH (06:18)
[2020-10-04] MEDS: HEPARIN 5,000 UNITS/ML, 1ML SQ SCH ×3 (06:18→23:54)
[2020-10-04 06:43] VITALS: BP 136/77
[2020-10-04] MEDS: INSULIN LISPRO 100 UNIT/ML, 3ML VIAL SQ-INSULIN SCH ×3 (07:00→16:00)
[2020-10-04] MEDS: SODIUM CHLORIDE FLUSH 10ML SYR IVF SCH ×2 (09:00→21:13)
[2020-10-04] MEDS: BUPROPION 100 MG TABLET PO SCH ×2 (09:07→21:13)
[2020-10-04] MEDS: FAMOTIDINE 20 MG TABLET PO SCH (09:08)
[2020-10-04] MEDS: DOCUSATE 100 MG CAPSULE PO SCH ×2 (09:08→21:13)
[2020-10-04] MEDS: LEVETIRACETAM 500 MG TABLET PO SCH ×2 (09:08→21:13)
[2020-10-04] MEDS: POLYETHYLENE GLYCOL 17 GM PACKET PO SCH (09:15)
[2020-10-04] MEDS: DIPHENHYDRAMINE/ZINC CRM 2%, 30GM TP PRN (11:13)
[2020-10-04] MEDS: HYDROcodone/APAP 5/325 TABLET PO PRN ×3 (11:50→17:52)
[2020-10-04 13:17] VITALS: BP 95/64
[2020-10-04 17:51] VITALS: BP 156/102
[2020-10-04 19:10] VITALS: BP 100/60
[2020-10-04 21:07] LABS: BASOPHILS % (AUTO) 2 % (0-1); EOSINOPHILS % (AUTO) 6 % (1-7); LYMPHOCYTES % (AUTO) 40 % (22-44); MEAN CORPUSCULAR HEMOGLOBIN 29.7 pg (27.0-34.8); MEAN CORPUSCULAR HGB CONC 32.7 g/dL (32.4-35.8); MEAN PLATELET VOLUME 10.4 fL (7.4-10.4); MONOCYTES % (AUTO) 11 % (2-9); NEUTROPHILS % (AUTO) 42 % (42-75); PLATELET COUNT 297 x10^3/uL (130-400); RED BLOOD COUNT 3.41 x10^6/uL (3.82-5.3); RED CELL DISTRIBUTION WIDTH 16.7 % (9.6-15.2)
[2020-10-04] MEDS ORDERED: DARBEPOETIN 60 MCG/ML SQ SCH (21:15)
[2020-10-04 21:16] LABS: ALBUMIN 2.9 g/dL (3.4-5.0); ANION GAP 10 mmol/L (5-15); CALCIUM 8.5 mg/dL (8.5-10.1); CHLORIDE 102 mmol/L (98-107); CREATININE 6.18 mg/dL (0.55-1.02)
[2020-10-04] MEDS ORDERED: NALOXONE 0.4 MG/ML, 1ML ONE (21:19)
[2020-10-04 21:31] LABS: ALANINE AMINOTRANSFERASE 31 U/L (12-78); ALKALINE PHOSPHATASE 213 U/L (45-117); BILIRUBIN,TOTAL 0.3 mg/dL (0.2-1.0); TOTAL PROTEIN 7.3 g/dL (6.4-8.2); TROPONIN I 0.054 ng/mL (0.000-0.045)
[2020-10-04] MEDS: INSULIN GLARGINE 100 UNITS/ML, PEN SQ-INSULIN SCH (23:31)
[2020-10-05 01:08] VITALS: BP 122/77
[2020-10-05] MEDS: INSULIN LISPRO 100 UNITS/ML, PEN SQ-INSULIN SCH ×6 (03:12→23:06)
[2020-10-05 04:07] LABS: ALBUMIN 2.8 g/dL (3.4-5.0); ANION GAP 11 mmol/L (5-15); CALCIUM 8.6 mg/dL (8.5-10.1); CHLORIDE 101 mmol/L (98-107); CREATININE 6.39 mg/dL (0.55-1.02)
[2020-10-05] MEDS: HYDROCORTISONE 5 MG TABLET PO SCH ×2 (06:00→12:00)
[2020-10-05] MEDS ORDERED: HYDROCORTISONE 20 MG TABLET ONE (06:10)
[2020-10-05] MEDS: CARVEDILOL 6.25 MG TABLET PO SCH ×2 (06:15→18:31)
[2020-10-05] MEDS: LEVOTHYROXINE 100 MCG TABLET PO SCH (06:18)
[2020-10-05 06:53] VITALS: BP 122/80
[2020-10-05] MEDS: INSULIN LISPRO 100 UNIT/ML, 3ML VIAL SQ-INSULIN SCH ×3 (07:00→16:00)
[2020-10-05] MEDS: HEPARIN 5,000 UNITS/ML, 1ML SQ SCH ×2 (08:00→15:40)
[2020-10-05] MEDS: FAMOTIDINE 20 MG TABLET PO SCH (09:06)
[2020-10-05] MEDS: BUPROPION 100 MG TABLET PO SCH ×2 (09:06→20:35)
[2020-10-05] MEDS: LEVETIRACETAM 500 MG TABLET PO SCH ×2 (09:07→20:35)
[2020-10-05] MEDS: DOCUSATE 100 MG CAPSULE PO SCH ×2 (09:07→20:36)
[2020-10-05] MEDS: POLYETHYLENE GLYCOL 17 GM PACKET PO SCH (09:08)
[2020-10-05] MEDS: SODIUM CHLORIDE FLUSH 10ML SYR IVF SCH ×2 (11:00→20:40)
[2020-10-05] MEDS ORDERED: HYDROCORTISONE 10 MG TABLET ONE (13:07)
[2020-10-05 13:33] VITALS: BP 119/63
[2020-10-05] MEDS: DEXTROSE 4 GM TAB.CHEW PO PRN (15:35)
[2020-10-05] MEDS: DEXTROSE 50%, 50ML SYRINGE IVPush PRN (16:24)
[2020-10-05 18:32] VITALS: BP 175/125
[2020-10-05 18:43] VITALS: BP 171/100
[2020-10-05] MEDS: hydrALAzine 20 MG/ML, 1ML IV PRN (18:45)
[2020-10-05 20:45] VITALS: BP 137/80
[2020-10-05] MEDS: INSULIN GLARGINE 100 UNITS/ML, PEN SQ-INSULIN SCH (20:46)
[2020-10-05] MEDS: ACETAMINOPHEN 325 MG TABLET PO PRN (21:05)
[2020-10-06] MEDS: HEPARIN 5,000 UNITS/ML, 1ML SQ SCH ×4 (00:06→23:05)
[2020-10-06 00:56] VITALS: BP 109/63
[2020-10-06] MEDS: INSULIN LISPRO 100 UNITS/ML, PEN SQ-INSULIN SCH ×6 (03:00→23:04)
[2020-10-06] MEDS: ACETAMINOPHEN 325 MG TABLET PO PRN (03:03)
[2020-10-06] MEDS: CARVEDILOL 6.25 MG TABLET PO SCH ×2 (06:20→18:00)
[2020-10-06] MEDS: LEVOTHYROXINE 100 MCG TABLET PO SCH (06:20)
[2020-10-06] MEDS: HYDROCORTISONE 5 MG TABLET PO SCH ×2 (06:20→12:00)
[2020-10-06] MEDS: INSULIN LISPRO 100 UNIT/ML, 3ML VIAL SQ-INSULIN SCH ×3 (07:00→16:00)
[2020-10-06 07:09] VITALS: BP 164/115
[2020-10-06 08:00] VITALS: BP 169/122
[2020-10-06] MEDS: SODIUM CHLORIDE FLUSH 10ML SYR IVF SCH ×2 (08:02→20:49)
[2020-10-06] MEDS: LEVETIRACETAM 500 MG TABLET PO SCH ×2 (08:02→20:49)
[2020-10-06] MEDS: BUPROPION 100 MG TABLET PO SCH ×2 (08:02→20:49)
[2020-10-06] MEDS: hydrALAzine 20 MG/ML, 1ML IV PRN (08:15)
[2020-10-06] MEDS: DOCUSATE 100 MG CAPSULE PO SCH ×2 (08:20→20:49)
[2020-10-06] MEDS: FAMOTIDINE 20 MG TABLET PO SCH (08:21)
[2020-10-06] MEDS: POLYETHYLENE GLYCOL 17 GM PACKET PO SCH (08:21)
[2020-10-06 12:21] VITALS: BP 178/109
[2020-10-06 13:10] VITALS: BP 153/94
[2020-10-06] MEDS ORDERED: VISIPAQUE 270 MG/ML, 50ML BOTTLE ONE (15:07)
[2020-10-06] MEDS ORDERED: HEPARIN 1,000 UNITS/ML, 10ML ONE (15:07)
[2020-10-06] MEDS ORDERED: BUPIVACAINE/PF 0.5% ONE (15:07)
[2020-10-06] MEDS ORDERED: PROTAMINE SULFATE 10 MG/ML, 25ML ONE (15:08)
[2020-10-06] MEDS ORDERED: EPINEPHRINE 1 MG/ML, 1ML ONE (15:08)
[2020-10-06] MEDS ORDERED: FENTANYL PF 100 MCG/2ML ONE ×2 (16:15→18:10)
[2020-10-06] MEDS ORDERED: HYDROCORTISONE 100 MG INJ. ONE (16:23)
[2020-10-06] MEDS ORDERED: PROMETHAZINE 25 MG/ML, 1ML IVPush PRN (17:00)
[2020-10-06] MEDS ORDERED: hydrALAzine 20 MG/ML, 1ML IV PRN (17:00)
[2020-10-06] MEDS ORDERED: LABETALOL 5MG/ML, 20ML IV PRN (17:00)
[2020-10-06] MEDS ORDERED: OXYcodone 5 MG/5 ML ORAL.SOL UDC PO PRN (17:00)
[2020-10-06] MEDS ORDERED: FENTANYL PF 100 MCG/2ML IV PRN (17:00)
[2020-10-06] MEDS ORDERED: PROMETHAZINE 25 MG SUPP PR PRN (17:00)
[2020-10-06] MEDS ORDERED: METHOCARBAMOL 1,000 MG in DEXTROSE 5% 100 ML IV PRN (17:00)
[2020-10-06] MEDS ORDERED: ONDANSETRON 2MG/ML, 2ML IVPush PRN (17:00)
[2020-10-06] MEDS ORDERED: ACETAMINOPHEN 325 MG TABLET PO PRN (17:00)
[2020-10-06] MEDS ORDERED: LORazepam 2 MG/ML, 1ML IVPush PRN (17:00)
[2020-10-06] MEDS ORDERED: DEXAMETHASONE 4 MG/ML, 1ML ONE (18:24)
[2020-10-06] MEDS ORDERED: ONDANSETRON 2MG/ML, 2ML ONE ×2 (18:24→18:54)
[2020-10-06] MEDS ORDERED: PROPOFOL 10 MG/ML, 20ML ONE (18:24)
[2020-10-06] MEDS ORDERED: CEFAZOLIN 1,000 MG ONE (18:24)
[2020-10-06] MEDS ORDERED: PROMETHAZINE 25 MG/ML, 1ML ONE (19:03)
[2020-10-06] MEDS: INSULIN GLARGINE 100 UNITS/ML, PEN SQ-INSULIN SCH (19:58)
[2020-10-06 20:07] VITALS: BP 92/59
[2020-10-07] VITALS (7 sets, daily range): BP systolic 107–189; BP diastolic 55–106
[2020-10-07] MEDS: ACETAMINOPHEN 325 MG TABLET PO PRN ×3 (00:26→21:04)
[2020-10-07] MEDS: INSULIN LISPRO 100 UNITS/ML, PEN SQ-INSULIN SCH ×6 (03:02→20:51)
[2020-10-07] MEDS: HYDROCORTISONE 5 MG TABLET PO SCH ×2 (05:10→18:26)
[2020-10-07] MEDS: LEVOTHYROXINE 100 MCG TABLET PO SCH (05:11)
[2020-10-07] MEDS: CARVEDILOL 6.25 MG TABLET PO SCH ×2 (05:11→18:26)
[2020-10-07 05:36] LABS: BASOPHILS % (AUTO) 1 % (0-1); EOSINOPHILS % (AUTO) 0 % (1-7); LYMPHOCYTES % (AUTO) 20 % (22-44); MEAN CORPUSCULAR HEMOGLOBIN 30.1 pg (27.0-34.8); MEAN CORPUSCULAR HGB CONC 33.1 g/dL (32.4-35.8); MEAN PLATELET VOLUME 10.1 fL (7.4-10.4); MONOCYTES % (AUTO) 12 % (2-9); NEUTROPHILS % (AUTO) 67 % (42-75); PLATELET COUNT 276 x10^3/uL (130-400); RED BLOOD COUNT 3.16 x10^6/uL (3.82-5.3); RED CELL DISTRIBUTION WIDTH 16.5 % (9.6-15.2)
[2020-10-07 05:37] LABS: CHLORIDE 102 mmol/L (98-107)
[2020-10-07 05:51] LABS: ALBUMIN 2.6 g/dL (3.4-5.0); ANION GAP 10 mmol/L (5-15); CALCIUM 8.8 mg/dL (8.5-10.1); CREATININE 6.64 mg/dL (0.55-1.02)
[2020-10-07] MEDS: INSULIN LISPRO 100 UNIT/ML, 3ML VIAL SQ-INSULIN SCH ×3 (07:00→17:00)
[2020-10-07] MEDS: BUPROPION 100 MG TABLET PO SCH ×2 (08:43→20:52)
[2020-10-07] MEDS: LEVETIRACETAM 500 MG TABLET PO SCH ×2 (08:44→20:52)
[2020-10-07] MEDS: POLYETHYLENE GLYCOL 17 GM PACKET PO SCH (08:44)
[2020-10-07] MEDS: DOCUSATE 100 MG CAPSULE PO SCH ×2 (08:44→20:52)
[2020-10-07] MEDS: FAMOTIDINE 20 MG TABLET PO SCH (08:44)
[2020-10-07] MEDS: HEPARIN 5,000 UNITS/ML, 1ML SQ SCH ×2 (08:45→18:25)
[2020-10-07] MEDS: SODIUM CHLORIDE FLUSH 10ML SYR IVF SCH ×2 (11:24→20:52)
[2020-10-07] MEDS: HYDROcodone/APAP 5/325 TABLET PO PRN (14:59)
[2020-10-07] MEDS: hydrALAzine 20 MG/ML, 1ML IV PRN (18:26)
[2020-10-07] MEDS: INSULIN GLARGINE 100 UNITS/ML, PEN SQ-INSULIN SCH (20:51)
[2020-10-08 00:41] VITALS: BP 132/87
[2020-10-08] MEDS: HEPARIN 5,000 UNITS/ML, 1ML SQ SCH ×3 (02:30→18:04)
[2020-10-08] MEDS: INSULIN LISPRO 100 UNITS/ML, PEN SQ-INSULIN SCH ×5 (03:00→20:24)
[2020-10-08] MEDS: LORazepam 2 MG/ML, 1ML IVPush PRN (04:30)
[2020-10-08] MEDS: LIDODERM 5% PATCH TD PRN (04:42)
[2020-10-08] MEDS: ACETAMINOPHEN 325 MG TABLET PO PRN ×3 (04:42→15:03)
[2020-10-08 07:08] VITALS: BP 159/110
[2020-10-08] MEDS: INSULIN LISPRO 100 UNIT/ML, 3ML VIAL SQ-INSULIN SCH ×3 (08:30→16:00)
[2020-10-08] MEDS: DOCUSATE 100 MG CAPSULE PO SCH ×2 (09:24→20:17)
[2020-10-08] MEDS: BUPROPION 100 MG TABLET PO SCH ×2 (09:24→20:17)
[2020-10-08] MEDS: CARVEDILOL 6.25 MG TABLET PO SCH ×2 (09:25→18:04)
[2020-10-08] MEDS: LEVOTHYROXINE 100 MCG TABLET PO SCH (09:25)
[2020-10-08] MEDS: HYDROCORTISONE 5 MG TABLET PO SCH ×2 (09:25→11:46)
[2020-10-08] MEDS: LEVETIRACETAM 500 MG TABLET PO SCH ×2 (09:25→20:17)
[2020-10-08] MEDS: FAMOTIDINE 20 MG TABLET PO SCH (09:25)
[2020-10-08] MEDS: POLYETHYLENE GLYCOL 17 GM PACKET PO SCH (09:26)
[2020-10-08] MEDS: SODIUM CHLORIDE FLUSH 10ML SYR IVF SCH ×2 (09:27→20:19)
[2020-10-08 17:21] VITALS: BP 173/100
[2020-10-08] MEDS: hydrALAzine 20 MG/ML, 1ML IV PRN (18:04)
[2020-10-08 20:00] VITALS: BP 116/88
[2020-10-08] MEDS: INSULIN GLARGINE 100 UNITS/ML, PEN SQ-INSULIN SCH (20:18)
[2020-10-08 23:05] VITALS: BP 116/88
[2020-10-09] MEDS: INSULIN LISPRO 100 UNITS/ML, PEN SQ-INSULIN SCH ×7 (00:08→23:21)
[2020-10-09] MEDS: ACETAMINOPHEN 325 MG TABLET PO PRN ×3 (00:42→18:08)
[2020-10-09] MEDS: HEPARIN 5,000 UNITS/ML, 1ML SQ SCH ×3 (02:38→17:51)
[2020-10-09 03:00] VITALS: BP 116/62
[2020-10-09] MEDS: CARVEDILOL 6.25 MG TABLET PO SCH ×2 (05:42→17:52)
[2020-10-09] MEDS: HYDROCORTISONE 5 MG TABLET PO SCH ×2 (05:42→12:18)
[2020-10-09] MEDS: LEVOTHYROXINE 100 MCG TABLET PO SCH (05:42)
[2020-10-09 05:46] VITALS: BP 108/69
[2020-10-09 06:18] LABS: ALBUMIN 2.6 g/dL (3.4-5.0); ANION GAP 8 mmol/L (5-15); CALCIUM 8.7 mg/dL (8.5-10.1); CHLORIDE 103 mmol/L (98-107)
[2020-10-09 06:24] LABS: BASOPHILS % (AUTO) 1 % (0-1); EOSINOPHILS % (AUTO) 7 % (1-7); LYMPHOCYTES % (AUTO) 27 % (22-44); MEAN CORPUSCULAR HEMOGLOBIN 29.9 pg (27.0-34.8); MEAN CORPUSCULAR HGB CONC 33.2 g/dL (32.4-35.8); MEAN PLATELET VOLUME 10.1 fL (7.4-10.4); MONOCYTES % (AUTO) 14 % (2-9); NEUTROPHILS % (AUTO) 51 % (42-75); PLATELET COUNT 261 x10^3/uL (130-400); RED BLOOD COUNT 3.12 x10^6/uL (3.82-5.3); RED CELL DISTRIBUTION WIDTH 16.2 % (9.6-15.2)
[2020-10-09 07:40] VITALS: BP 116/49
[2020-10-09] MEDS: INSULIN LISPRO 100 UNIT/ML, 3ML VIAL SQ-INSULIN SCH ×3 (08:09→15:18)
[2020-10-09] MEDS: BUPROPION 100 MG TABLET PO SCH ×2 (09:45→21:40)
[2020-10-09] MEDS: FAMOTIDINE 20 MG TABLET PO SCH (09:45)
[2020-10-09] MEDS: LEVETIRACETAM 500 MG TABLET PO SCH ×2 (09:45→21:39)
[2020-10-09] MEDS: DOCUSATE 100 MG CAPSULE PO SCH ×2 (09:45→21:39)
[2020-10-09] MEDS: POLYETHYLENE GLYCOL 17 GM PACKET PO SCH (09:45)
[2020-10-09] MEDS: SODIUM CHLORIDE FLUSH 10ML SYR IVF SCH ×2 (09:46→21:30)
[2020-10-09] MEDS ORDERED: DARBEPOETIN 60 MCG/ML SQ SCH ×2 (11:30)
[2020-10-09 13:04] VITALS: BP 131/82
[2020-10-09 17:58] VITALS: BP 172/123
[2020-10-09] MEDS: hydrALAzine 20 MG/ML, 1ML IV PRN (18:09)
[2020-10-09 20:00] VITALS: BP 103/58
[2020-10-09] MEDS: INSULIN GLARGINE 100 UNITS/ML, PEN SQ-INSULIN SCH (21:45)
[2020-10-10 02:00] VITALS: BP 105/46
[2020-10-10] MEDS: HEPARIN 5,000 UNITS/ML, 1ML SQ SCH ×3 (02:30→18:04)
[2020-10-10 02:53] LABS: ALBUMIN 2.6 g/dL (3.4-5.0); ANION GAP 11 mmol/L (5-15); CALCIUM 8.6 mg/dL (8.5-10.1); CHLORIDE 100 mmol/L (98-107); CREATININE 7.95 mg/dL (0.55-1.02)
[2020-10-10] MEDS: INSULIN LISPRO 100 UNITS/ML, PEN SQ-INSULIN SCH ×6 (03:22→23:30)
[2020-10-10] MEDS: CARVEDILOL 6.25 MG TABLET PO SCH ×2 (05:20→18:04)
[2020-10-10] MEDS: HYDROCORTISONE 5 MG TABLET PO SCH ×2 (05:20→16:50)
[2020-10-10] MEDS: LEVOTHYROXINE 100 MCG TABLET PO SCH (05:21)
[2020-10-10] MEDS: ACETAMINOPHEN 325 MG TABLET PO PRN (06:41)
[2020-10-10 06:53] VITALS: BP 115/66
[2020-10-10] MEDS: INSULIN LISPRO 100 UNIT/ML, 3ML VIAL SQ-INSULIN SCH ×3 (07:00→16:00)
[2020-10-10] MEDS: SODIUM CHLORIDE FLUSH 10ML SYR IVF SCH ×2 (09:00→20:12)
[2020-10-10] MEDS: POLYETHYLENE GLYCOL 17 GM PACKET PO SCH (09:09)
[2020-10-10] MEDS: BUPROPION 100 MG TABLET PO SCH ×2 (09:09→20:12)
[2020-10-10] MEDS: FAMOTIDINE 20 MG TABLET PO SCH (09:09)
[2020-10-10] MEDS: LEVETIRACETAM 500 MG TABLET PO SCH ×2 (09:09→20:12)
[2020-10-10] MEDS: DOCUSATE 100 MG CAPSULE PO SCH ×2 (09:10→21:00)
[2020-10-10] MEDS ORDERED: SODIUM ZIRCONIUM CYCLOSILICATE 5 GM PO ONE (11:30)
[2020-10-10 12:20] VITALS: BP 103/80
[2020-10-10 18:50] VITALS: BP 163/91
[2020-10-10] MEDS: INSULIN GLARGINE 100 UNITS/ML, PEN SQ-INSULIN SCH (20:15)
[2020-10-11 00:13] VITALS: BP 157/94
[2020-10-11] MEDS: HEPARIN 5,000 UNITS/ML, 1ML SQ SCH ×3 (02:46→17:22)
[2020-10-11] MEDS: INSULIN LISPRO 100 UNITS/ML, PEN SQ-INSULIN SCH ×6 (03:13→23:00)
[2020-10-11] MEDS: LORazepam 2 MG/ML, 1ML IVPush PRN ×2 (03:30→14:43)
[2020-10-11 06:02] LABS: BASOPHILS % (AUTO) 1 % (0-1); EOSINOPHILS % (AUTO) 9 % (1-7); LYMPHOCYTES % (AUTO) 30 % (22-44); MEAN CORPUSCULAR HEMOGLOBIN 29.5 pg (27.0-34.8); MEAN CORPUSCULAR HGB CONC 32.8 g/dL (32.4-35.8); MEAN PLATELET VOLUME 9.9 fL (7.4-10.4); MONOCYTES % (AUTO) 12 % (2-9); NEUTROPHILS % (AUTO) 49 % (42-75); PLATELET COUNT 246 x10^3/uL (130-400); RED BLOOD COUNT 3.19 x10^6/uL (3.82-5.3)
[2020-10-11] MEDS: CARVEDILOL 6.25 MG TABLET PO SCH ×2 (06:12→17:06)
[2020-10-11] MEDS: LEVOTHYROXINE 100 MCG TABLET PO SCH (06:13)
[2020-10-11] MEDS: HYDROCORTISONE 5 MG TABLET PO SCH ×2 (06:14→11:17)
[2020-10-11 06:15] LABS: ALBUMIN 2.6 g/dL (3.4-5.0); CALCIUM 8.9 mg/dL (8.5-10.1); CHLORIDE 103 mmol/L (98-107)
[2020-10-11 06:17] LABS: ANION GAP 8 mmol/L (5-15); CREATININE 5.38 mg/dL (0.55-1.02)
[2020-10-11 06:55] VITALS: BP 181/131
[2020-10-11] MEDS: INSULIN LISPRO 100 UNIT/ML, 3ML VIAL SQ-INSULIN SCH ×3 (07:00→15:38)
[2020-10-11] MEDS: SODIUM CHLORIDE FLUSH 10ML SYR IVF SCH ×2 (07:38→21:06)
[2020-10-11] MEDS: DOCUSATE 100 MG CAPSULE PO SCH ×2 (07:39→21:06)
[2020-10-11] MEDS: hydrALAzine 20 MG/ML, 1ML IV PRN (07:39)
[2020-10-11] MEDS: POLYETHYLENE GLYCOL 17 GM PACKET PO SCH (07:58)
[2020-10-11] MEDS: FAMOTIDINE 20 MG TABLET PO SCH (08:04)
[2020-10-11] MEDS: LEVETIRACETAM 500 MG TABLET PO SCH ×2 (08:04→21:06)
[2020-10-11] MEDS: BUPROPION 100 MG TABLET PO SCH ×2 (08:04→21:06)
[2020-10-11 10:22] VITALS: BP 153/103
[2020-10-11 12:22] VITALS: BP 156/86
[2020-10-11] MEDS ORDERED: INSULIN LISPRO 100 UNIT/ML, 3ML VIAL SQ-INSULIN ONE (17:00)
[2020-10-11 19:18] VITALS: BP 124/79
[2020-10-11] MEDS ORDERED: AMLODIPINE 5 MG TABLET PO ONE (21:00)
[2020-10-11] MEDS: INSULIN GLARGINE 100 UNITS/ML, PEN SQ-INSULIN SCH (21:08)
[2020-10-12 02:54] VITALS: BP 134/104
[2020-10-12] MEDS: INSULIN LISPRO 100 UNITS/ML, PEN SQ-INSULIN SCH ×6 (03:00→23:17)
[2020-10-12] MEDS: HEPARIN 5,000 UNITS/ML, 1ML SQ SCH ×3 (03:02→17:33)
[2020-10-12] MEDS: LORazepam 2 MG/ML, 1ML IVPush PRN (03:17)
[2020-10-12] MEDS: HYDROCORTISONE 5 MG TABLET PO SCH ×2 (05:50→11:51)
[2020-10-12] MEDS: LEVOTHYROXINE 100 MCG TABLET PO SCH (05:50)
[2020-10-12] MEDS: CARVEDILOL 6.25 MG TABLET PO SCH ×2 (05:51→17:33)
[2020-10-12 06:31] LABS: ALBUMIN 2.6 g/dL (3.4-5.0); ANION GAP 10 mmol/L (5-15); CHLORIDE 99 mmol/L (98-107)
[2020-10-12 06:35] LABS: ALANINE AMINOTRANSFERASE 10 U/L (12-78); ALKALINE PHOSPHATASE 161 U/L (45-117); BILIRUBIN,TOTAL 0.3 mg/dL (0.2-1.0); TOTAL PROTEIN 6.7 g/dL (6.4-8.2)
[2020-10-12 06:42] VITALS: BP 101/31
[2020-10-12] MEDS: INSULIN LISPRO 100 UNIT/ML, 3ML VIAL SQ-INSULIN SCH ×3 (07:00→15:17)
[2020-10-12] MEDS: LEVETIRACETAM 500 MG TABLET PO SCH ×2 (07:55→20:06)
[2020-10-12] MEDS: BUPROPION 100 MG TABLET PO SCH ×2 (07:55→20:06)
[2020-10-12] MEDS: FAMOTIDINE 20 MG TABLET PO SCH (07:55)
[2020-10-12] MEDS: DOCUSATE 100 MG CAPSULE PO SCH ×2 (07:56→20:05)
[2020-10-12] MEDS: SODIUM CHLORIDE FLUSH 10ML SYR IVF SCH ×2 (07:56→20:09)
[2020-10-12] MEDS: POLYETHYLENE GLYCOL 17 GM PACKET PO SCH (07:56)
[2020-10-12] MEDS: HYDROcodone/APAP 5/325 TABLET PO PRN ×2 (11:52→20:07)
[2020-10-12 12:23] VITALS: BP 70/50
[2020-10-12 13:03] VITALS: BP 141/84
[2020-10-12] MEDS: ACETAMINOPHEN 325 MG TABLET PO PRN (16:25)
--- NOTE | 2020-10-12 16:45 | NUR ---
Reposted green activity sheet and informed nursing and patient Addendum: 10/12/20 at 1645 by Jhonathan Whitfield PT Amended: Links added.
[2020-10-12] MEDS: ONDANSETRON 2MG/ML, 2ML IVPush PRN (16:52)
[2020-10-12 18:18] VITALS: BP 129/63
[2020-10-12 19:00] VITALS: BP 132/91
[2020-10-12] MEDS: INSULIN GLARGINE 100 UNITS/ML, PEN SQ-INSULIN SCH (20:08)
[2020-10-13 00:26] VITALS: BP 132/75
[2020-10-13] MEDS: HEPARIN 5,000 UNITS/ML, 1ML SQ SCH ×3 (02:58→17:42)
[2020-10-13] MEDS: INSULIN LISPRO 100 UNITS/ML, PEN SQ-INSULIN SCH ×6 (03:01→23:00)
[2020-10-13] MEDS: ACETAMINOPHEN 325 MG TABLET PO PRN ×3 (03:01→21:16)
[2020-10-13] MEDS: LIDODERM 5% PATCH TD PRN (03:50)
[2020-10-13] MEDS: DIPHENHYDRAMINE/ZINC CRM 2%, 30GM TP PRN ×2 (03:51→21:17)
[2020-10-13] MEDS: HYDROCORTISONE 5 MG TABLET PO SCH ×2 (05:54→12:33)
[2020-10-13] MEDS: LEVOTHYROXINE 100 MCG TABLET PO SCH (05:54)
[2020-10-13] MEDS: CARVEDILOL 6.25 MG TABLET PO SCH ×3 (05:55→17:42)
[2020-10-13 05:57] VITALS: BP 110/50
[2020-10-13] MEDS: INSULIN LISPRO 100 UNIT/ML, 3ML VIAL SQ-INSULIN SCH ×3 (07:00→15:43)
[2020-10-13 07:20] VITALS: BP 131/58
[2020-10-13] MEDS: LEVETIRACETAM 500 MG TABLET PO SCH ×2 (10:13→21:17)
[2020-10-13] MEDS: SODIUM CHLORIDE FLUSH 10ML SYR IVF SCH ×2 (10:13→21:16)
[2020-10-13] MEDS: FAMOTIDINE 20 MG TABLET PO SCH (10:13)
[2020-10-13] MEDS: BUPROPION 100 MG TABLET PO SCH ×2 (10:13→21:16)
[2020-10-13] MEDS: DOCUSATE 100 MG CAPSULE PO SCH ×2 (10:14→21:17)
[2020-10-13] MEDS: POLYETHYLENE GLYCOL 17 GM PACKET PO SCH (10:14)
[2020-10-13 14:20] VITALS: BP 115/44
[2020-10-13 17:41] VITALS: BP 143/71
[2020-10-13 20:00] VITALS: BP 132/69
[2020-10-13] MEDS: INSULIN GLARGINE 100 UNITS/ML, PEN SQ-INSULIN SCH (21:18)
[2020-10-14 00:55] VITALS: BP 136/94
[2020-10-14] MEDS: HEPARIN 5,000 UNITS/ML, 1ML SQ SCH ×3 (02:40→17:39)
[2020-10-14] MEDS: INSULIN LISPRO 100 UNITS/ML, PEN SQ-INSULIN SCH ×6 (02:42→23:39)
[2020-10-14 05:53] LABS: BASOPHILS % (AUTO) 2 % (0-1); EOSINOPHILS % (AUTO) 10 % (1-7); LYMPHOCYTES % (AUTO) 35 % (22-44); MEAN CORPUSCULAR HEMOGLOBIN 29.7 pg (27.0-34.8); MEAN PLATELET VOLUME 9.5 fL (7.4-10.4); MONOCYTES % (AUTO) 14 % (2-9); NEUTROPHILS % (AUTO) 41 % (42-75); PLATELET COUNT 240 x10^3/uL (130-400); RED BLOOD COUNT 3.34 x10^6/uL (3.82-5.3); RED CELL DISTRIBUTION WIDTH 15.6 % (9.6-15.2)
[2020-10-14 06:06] LABS: CHLORIDE 95 mmol/L (98-107)
[2020-10-14 06:13] LABS: ALANINE AMINOTRANSFERASE 10 U/L (12-78); ALBUMIN 2.6 g/dL (3.4-5.0); ALKALINE PHOSPHATASE 166 U/L (45-117); ANION GAP 12 mmol/L (5-15); BILIRUBIN,TOTAL 0.3 mg/dL (0.2-1.0); CREATININE 7.04 mg/dL (0.55-1.02); TOTAL PROTEIN 6.7 g/dL (6.4-8.2)
[2020-10-14 07:00] VITALS: BP 136/36
[2020-10-14] MEDS: INSULIN LISPRO 100 UNIT/ML, 3ML VIAL SQ-INSULIN SCH ×3 (07:30→15:41)
[2020-10-14 07:38] VITALS: BP 136/93
[2020-10-14] MEDS: HYDROCORTISONE 5 MG TABLET PO SCH ×2 (07:39→13:20)
[2020-10-14] MEDS: LEVOTHYROXINE 100 MCG TABLET PO SCH (07:39)
[2020-10-14] MEDS: CARVEDILOL 6.25 MG TABLET PO SCH ×2 (07:40→17:39)
[2020-10-14] MEDS ORDERED: CATHFLO-ALTEPLASE 2 MG/2 ML CATHFLUSH ONE ×2 (08:00)
[2020-10-14] MEDS: SODIUM CHLORIDE FLUSH 10ML SYR IVF SCH ×2 (11:27→20:38)
[2020-10-14] MEDS: LEVETIRACETAM 500 MG TABLET PO SCH ×2 (13:19→20:37)
[2020-10-14] MEDS: BUPROPION 100 MG TABLET PO SCH ×2 (13:20→20:37)
[2020-10-14] MEDS: POLYETHYLENE GLYCOL 17 GM PACKET PO SCH (13:20)
[2020-10-14] MEDS: FAMOTIDINE 20 MG TABLET PO SCH (13:20)
[2020-10-14] MEDS: ERGOCALCIFEROL 50,000 UNIT CAPSULE PO SCH (13:20)
[2020-10-14] MEDS: DOCUSATE 100 MG CAPSULE PO SCH ×2 (13:20→20:37)
[2020-10-14] MEDS: SEVELAMER CARBONATE 800MG TAB PO SCH ×2 (13:20→17:39)
[2020-10-14 14:20] VITALS: BP 130/78
[2020-10-14 17:37] VITALS: BP 120/71
[2020-10-14] MEDS: LORazepam 2 MG/ML, 1ML IVPush PRN (19:07)
[2020-10-14 19:32] VITALS: BP 99/62
[2020-10-14] MEDS: MELATONIN 5 MG TABLET PO PRN (20:37)
[2020-10-14] MEDS: INSULIN GLARGINE 100 UNITS/ML, PEN SQ-INSULIN SCH (20:38)
[2020-10-15 01:31] VITALS: BP 111/79
[2020-10-15] MEDS: INSULIN LISPRO 100 UNITS/ML, PEN SQ-INSULIN SCH ×6 (03:00→23:00)
[2020-10-15] MEDS: HEPARIN 5,000 UNITS/ML, 1ML SQ SCH ×4 (03:57→20:17)
[2020-10-15] MEDS: HYDROcodone/APAP 5/325 TABLET PO PRN ×3 (03:58→18:33)
[2020-10-15] MEDS: CARVEDILOL 6.25 MG TABLET PO SCH ×2 (06:03→18:34)
[2020-10-15] MEDS: LEVOTHYROXINE 100 MCG TABLET PO SCH (06:03)
[2020-10-15] MEDS: HYDROCORTISONE 5 MG TABLET PO SCH ×2 (06:03→12:08)
[2020-10-15 06:37] VITALS: BP 167/88
[2020-10-15] MEDS: INSULIN LISPRO 100 UNIT/ML, 3ML VIAL SQ-INSULIN SCH ×3 (07:00→16:00)
[2020-10-15] MEDS: ACETAMINOPHEN 325 MG TABLET PO PRN ×2 (08:25→16:13)
[2020-10-15] MEDS: POLYETHYLENE GLYCOL 17 GM PACKET PO SCH (08:25)
[2020-10-15] MEDS: SODIUM CHLORIDE FLUSH 10ML SYR IVF SCH ×2 (08:25→20:27)
[2020-10-15] MEDS: LEVETIRACETAM 500 MG TABLET PO SCH ×2 (08:25→20:26)
[2020-10-15] MEDS: SEVELAMER CARBONATE 800MG TAB PO SCH ×3 (08:25→16:13)
[2020-10-15] MEDS: DOCUSATE 100 MG CAPSULE PO SCH ×2 (08:25→20:26)
[2020-10-15] MEDS: BUPROPION 100 MG TABLET PO SCH ×2 (08:25→20:26)
[2020-10-15] MEDS: FAMOTIDINE 20 MG TABLET PO SCH (08:25)
[2020-10-15 12:48] VITALS: BP 142/97
[2020-10-15] MEDS: ONDANSETRON 2MG/ML, 2ML IVPush PRN (18:33)
[2020-10-15 18:39] VITALS: BP 162/122
[2020-10-15] MEDS: INSULIN GLARGINE 100 UNITS/ML, PEN SQ-INSULIN SCH (20:27)
[2020-10-16 01:05] VITALS: BP 116/60
[2020-10-16] MEDS: INSULIN LISPRO 100 UNITS/ML, PEN SQ-INSULIN SCH ×8 (03:00→23:17)
[2020-10-16] MEDS: HYDROCORTISONE 5 MG TABLET PO SCH ×2 (06:11→12:43)
[2020-10-16] MEDS: LEVOTHYROXINE 100 MCG TABLET PO SCH (06:11)
[2020-10-16] MEDS: CARVEDILOL 6.25 MG TABLET PO SCH ×2 (06:12→17:15)
[2020-10-16 06:52] VITALS: BP 134/88
[2020-10-16] MEDS: INSULIN LISPRO 100 UNIT/ML, 3ML VIAL SQ-INSULIN SCH (07:00)
[2020-10-16] MEDS: SEVELAMER CARBONATE 800MG TAB PO SCH ×3 (07:48→17:14)
[2020-10-16] MEDS: HEPARIN 5,000 UNITS/ML, 1ML SQ SCH ×2 (09:13→18:33)
[2020-10-16] MEDS: LEVETIRACETAM 500 MG TABLET PO SCH ×2 (09:19→20:02)
[2020-10-16] MEDS: SODIUM CHLORIDE FLUSH 10ML SYR IVF SCH ×2 (09:19→20:04)
[2020-10-16] MEDS: BUPROPION 100 MG TABLET PO SCH ×2 (09:19→20:02)
[2020-10-16] MEDS: DOCUSATE 100 MG CAPSULE PO SCH ×2 (09:19→20:02)
[2020-10-16] MEDS: FAMOTIDINE 20 MG TABLET PO SCH (09:19)
[2020-10-16] MEDS: HYDROcodone/APAP 5/325 TABLET PO PRN (09:33)
[2020-10-16] MEDS ORDERED: FLUMAZENIL 0.1 MG/1 ML, 5ML ONE (10:27)
[2020-10-16] MEDS ORDERED: FENTANYL PF 100 MCG/2ML ONE (10:27)
[2020-10-16] MEDS ORDERED: NALOXONE 1 MG/ML, 2ML ONE (10:27)
[2020-10-16] MEDS ORDERED: MIDAZOLAM 1 MG/ML, 5ML ONE (10:27)
[2020-10-16] MEDS ORDERED: LIDOCAINE 1%, 10ML ONE (10:45)
[2020-10-16] MEDS ORDERED: CEFAZOLIN PMX 1GM/50ML 50 ML ONE (11:15)
[2020-10-16] MEDS: POLYETHYLENE GLYCOL 17 GM PACKET PO SCH (12:44)
[2020-10-16] MEDS: DARBEPOETIN 60 MCG/ML SQ SCH (12:44)
[2020-10-16 13:03] VITALS: BP 164/83
[2020-10-16 18:34] VITALS: BP 148/79
[2020-10-16] MEDS: INSULIN GLARGINE 100 UNITS/ML, PEN SQ-INSULIN SCH (21:00)
[2020-10-16] MEDS: LORazepam 2 MG/ML, 1ML IVPush PRN (23:03)
[2020-10-16 23:04] VITALS: BP 126/64
[2020-10-17] MEDS: MELATONIN 5 MG TABLET PO PRN ×2 (00:20→23:46)
[2020-10-17] MEDS: HEPARIN 5,000 UNITS/ML, 1ML SQ SCH ×3 (02:48→17:34)
[2020-10-17] MEDS: INSULIN LISPRO 100 UNITS/ML, PEN SQ-INSULIN SCH ×9 (03:38→23:57)
[2020-10-17 03:39] VITALS: BP 138/83
[2020-10-17] MEDS: ACETAMINOPHEN 325 MG TABLET PO PRN ×2 (04:27→12:28)
[2020-10-17] MEDS: CARVEDILOL 6.25 MG TABLET PO SCH ×2 (05:53→17:34)
[2020-10-17] MEDS: LEVOTHYROXINE 100 MCG TABLET PO SCH (05:54)
[2020-10-17] MEDS: HYDROCORTISONE 5 MG TABLET PO SCH ×2 (05:55→12:27)
[2020-10-17 07:08] VITALS: BP 139/84
[2020-10-17] MEDS: LORazepam 2 MG/ML, 1ML IVPush PRN (08:51)
[2020-10-17] MEDS: SEVELAMER CARBONATE 800MG TAB PO SCH ×3 (08:53→17:33)
[2020-10-17] MEDS: FAMOTIDINE 20 MG TABLET PO SCH (08:53)
[2020-10-17] MEDS: BUPROPION 100 MG TABLET PO SCH ×2 (08:53→22:27)
[2020-10-17] MEDS: LEVETIRACETAM 500 MG TABLET PO SCH ×2 (08:53→22:27)
[2020-10-17] MEDS: DOCUSATE 100 MG CAPSULE PO SCH ×2 (08:53→22:27)
[2020-10-17] MEDS: POLYETHYLENE GLYCOL 17 GM PACKET PO SCH (09:00)
[2020-10-17] MEDS: HYDROcodone/APAP 5/325 TABLET PO PRN (09:58)
[2020-10-17] MEDS: SODIUM CHLORIDE FLUSH 10ML SYR IVF SCH ×2 (11:18→22:28)
[2020-10-17 12:11] VITALS: BP 106/86
[2020-10-17] MEDS: ONDANSETRON ODT 4 MG PO PRN (12:28)
[2020-10-17 18:32] VITALS: BP 155/82
[2020-10-17] MEDS: INSULIN GLARGINE 100 UNITS/ML, PEN SQ-INSULIN SCH (22:27)
[2020-10-18 01:39] VITALS: BP 142/80
[2020-10-18] MEDS: HEPARIN 5,000 UNITS/ML, 1ML SQ SCH ×3 (02:43→18:01)
[2020-10-18] MEDS: INSULIN LISPRO 100 UNITS/ML, PEN SQ-INSULIN SCH ×8 (04:11→20:43)
[2020-10-18] MEDS: HYDROCORTISONE 5 MG TABLET PO SCH ×2 (06:10→13:04)
[2020-10-18] MEDS: LEVOTHYROXINE 100 MCG TABLET PO SCH (06:10)
[2020-10-18] MEDS: CARVEDILOL 6.25 MG TABLET PO SCH ×2 (06:10→18:00)
[2020-10-18 06:13] VITALS: BP 122/77
[2020-10-18 07:16] VITALS: BP 118/69
[2020-10-18] MEDS: SEVELAMER CARBONATE 800MG TAB PO SCH ×3 (09:16→18:00)
[2020-10-18] MEDS: DOCUSATE 100 MG CAPSULE PO SCH ×2 (09:17→21:29)
[2020-10-18] MEDS: BUPROPION 100 MG TABLET PO SCH ×2 (09:17→20:50)
[2020-10-18] MEDS: FAMOTIDINE 20 MG TABLET PO SCH (09:17)
[2020-10-18] MEDS: LEVETIRACETAM 500 MG TABLET PO SCH ×2 (09:17→20:50)
[2020-10-18] MEDS: SODIUM CHLORIDE FLUSH 10ML SYR IVF SCH ×2 (09:18→20:50)
[2020-10-18] MEDS: POLYETHYLENE GLYCOL 17 GM PACKET PO SCH (09:18)
[2020-10-18 12:10] VITALS: BP 152/82
[2020-10-18] MEDS: HYDROcodone/APAP 5/325 TABLET PO PRN (13:15)
[2020-10-18 18:43] VITALS: BP 146/92
[2020-10-18] MEDS ORDERED: INSULIN LISPRO 100 UNIT/ML, 3ML VIAL SQ ONE (20:30)
[2020-10-18] MEDS: INSULIN GLARGINE 100 UNITS/ML, PEN SQ-INSULIN SCH (20:51)
[2020-10-18 21:02] LABS: ANION GAP 13 mmol/L (5-15); CALCIUM 8.8 mg/dL (8.5-10.1); CHLORIDE 94 mmol/L (98-107); CREATININE 6.85 mg/dL (0.55-1.02)
[2020-10-18] MEDS ORDERED: SODIUM ZIRCONIUM CYCLOSILICATE 10 GM PO ONE (22:30)
[2020-10-18] MEDS ORDERED: SODIUM CHLORIDE 0.9%, 250ML IVBOLUS ONE (22:30)
[2020-10-18] MEDS ORDERED: INSULIN LISPRO 100 UNIT/ML, 3ML VIAL SQ-INSULIN ONE (23:00)
[2020-10-19 00:02] VITALS: BP 156/79
[2020-10-19] MEDS: INSULIN LISPRO 100 UNITS/ML, PEN SQ-INSULIN SCH ×10 (00:15→23:00)
[2020-10-19] MEDS: HEPARIN 5,000 UNITS/ML, 1ML SQ SCH ×3 (03:32→18:31)
[2020-10-19 04:05] LABS: ALBUMIN 2.8 g/dL (3.4-5.0); ANION GAP 11 mmol/L (5-15); CALCIUM 8.8 mg/dL (8.5-10.1); CHLORIDE 99 mmol/L (98-107); CREATININE 7.01 mg/dL (0.55-1.02)
[2020-10-19 05:11] VITALS: BP 93/60
[2020-10-19] MEDS: CARVEDILOL 6.25 MG TABLET PO SCH ×2 (05:13→18:31)
[2020-10-19] MEDS: LEVOTHYROXINE 100 MCG TABLET PO SCH (05:14)
[2020-10-19] MEDS: HYDROCORTISONE 5 MG TABLET PO SCH ×2 (05:14→13:03)
[2020-10-19] MEDS: SEVELAMER CARBONATE 800MG TAB PO SCH ×3 (08:00→20:37)
[2020-10-19 08:24] VITALS: BP 138/83
[2020-10-19] MEDS: DOCUSATE 100 MG CAPSULE PO SCH ×2 (09:00→20:37)
[2020-10-19] MEDS: POLYETHYLENE GLYCOL 17 GM PACKET PO SCH (09:00)
[2020-10-19] MEDS: FAMOTIDINE 20 MG TABLET PO SCH (09:00)
[2020-10-19] MEDS: SODIUM CHLORIDE FLUSH 10ML SYR IVF SCH ×2 (09:00→20:37)
[2020-10-19] MEDS: BUPROPION 100 MG TABLET PO SCH ×2 (09:00→20:37)
[2020-10-19] MEDS: HYDROcodone/APAP 5/325 TABLET PO PRN (09:56)
[2020-10-19] MEDS: LEVETIRACETAM 500 MG TABLET PO SCH ×2 (13:03→20:37)
[2020-10-19 13:40] VITALS: BP 98/45
[2020-10-19 18:32] VITALS: BP 158/101
[2020-10-19 20:06] VITALS: BP 109/49
[2020-10-19] MEDS: INSULIN GLARGINE 100 UNITS/ML, PEN SQ-INSULIN SCH (20:38)
[2020-10-19] MEDS: MELATONIN 5 MG TABLET PO PRN (23:22)
[2020-10-20] MEDS: ACETAMINOPHEN 325 MG TABLET PO PRN (01:13)
[2020-10-20 01:29] VITALS: BP 142/56
[2020-10-20] MEDS: INSULIN LISPRO 100 UNITS/ML, PEN SQ-INSULIN SCH ×9 (03:09→23:40)
[2020-10-20] MEDS: HEPARIN 5,000 UNITS/ML, 1ML SQ SCH ×3 (03:09→20:42)
[2020-10-20] MEDS: CARVEDILOL 6.25 MG TABLET PO SCH ×2 (06:11→17:28)
[2020-10-20] MEDS: LEVOTHYROXINE 100 MCG TABLET PO SCH (06:11)
[2020-10-20] MEDS: HYDROCORTISONE 5 MG TABLET PO SCH ×2 (06:11→12:37)
[2020-10-20 06:46] VITALS: BP 122/54
[2020-10-20] MEDS: SEVELAMER CARBONATE 800MG TAB PO SCH ×3 (08:41→17:28)
[2020-10-20] MEDS: POLYETHYLENE GLYCOL 17 GM PACKET PO SCH (08:42)
[2020-10-20] MEDS: SODIUM CHLORIDE FLUSH 10ML SYR IVF SCH ×2 (08:42→20:43)
[2020-10-20] MEDS: BUPROPION 100 MG TABLET PO SCH ×2 (08:42→20:42)
[2020-10-20] MEDS: LEVETIRACETAM 500 MG TABLET PO SCH ×2 (08:42→20:42)
[2020-10-20] MEDS: FAMOTIDINE 20 MG TABLET PO SCH (08:42)
[2020-10-20] MEDS: DOCUSATE 100 MG CAPSULE PO SCH ×2 (08:42→20:43)
[2020-10-20 12:09] VITALS: BP 136/58
[2020-10-20 17:17] VITALS: BP 136/82
[2020-10-20] MEDS: HYDROcodone/APAP 5/325 TABLET PO PRN (17:27)
[2020-10-20 19:51] VITALS: BP 112/63
[2020-10-20] MEDS: INSULIN GLARGINE 100 UNITS/ML, PEN SQ-INSULIN SCH (20:54)
[2020-10-21 01:20] VITALS: BP 128/72
[2020-10-21] MEDS: INSULIN LISPRO 100 UNITS/ML, PEN SQ-INSULIN SCH ×6 (03:18→23:06)
[2020-10-21 05:07] VITALS: BP 95/58
[2020-10-21] MEDS: HYDROCORTISONE 5 MG TABLET PO SCH ×2 (05:15→17:53)
[2020-10-21] MEDS: LEVOTHYROXINE 100 MCG TABLET PO SCH (05:16)
[2020-10-21] MEDS: HEPARIN 5,000 UNITS/ML, 1ML SQ SCH ×3 (05:17→21:28)
[2020-10-21] MEDS: CARVEDILOL 6.25 MG TABLET PO SCH (05:17)
[2020-10-21 05:25] LABS: ALBUMIN 2.7 g/dL (3.4-5.0); CHLORIDE 97 mmol/L (98-107)
[2020-10-21 05:26] LABS: ANION GAP 12 mmol/L (5-15); CALCIUM 8.7 mg/dL (8.5-10.1); CREATININE 6.68 mg/dL (0.55-1.02)
[2020-10-21 06:26] VITALS: BP 108/73
[2020-10-21] MEDS: SEVELAMER CARBONATE 800MG TAB PO SCH ×3 (08:19→17:53)
[2020-10-21] MEDS: DOCUSATE 100 MG CAPSULE PO SCH ×2 (09:00→21:29)
[2020-10-21] MEDS: LEVETIRACETAM 500 MG TABLET PO SCH ×2 (09:00→21:29)
[2020-10-21] MEDS: BUPROPION 100 MG TABLET PO SCH ×2 (09:00→21:29)
[2020-10-21] MEDS: POLYETHYLENE GLYCOL 17 GM PACKET PO SCH (09:00)
[2020-10-21] MEDS: SODIUM CHLORIDE FLUSH 10ML SYR IVF SCH ×2 (09:00→21:30)
[2020-10-21 12:49] VITALS: BP 113/62
[2020-10-21] MEDS: LORazepam 2 MG/ML, 1ML IVPush PRN (15:49)
[2020-10-21] MEDS: HYDROcodone/APAP 5/325 TABLET PO PRN (17:46)
[2020-10-21] MEDS: FAMOTIDINE 20 MG TABLET PO SCH (17:53)
[2020-10-21] MEDS: ERGOCALCIFEROL 50,000 UNIT CAPSULE PO SCH (17:53)
[2020-10-21 19:38] VITALS: BP 143/95
[2020-10-21] MEDS: CARVEDILOL 3.125 MG TABLET PO SCH (21:29)
[2020-10-21] MEDS: INSULIN GLARGINE 100 UNITS/ML, PEN SQ-INSULIN SCH (21:30)
[2020-10-22 00:34] VITALS: BP 126/84
[2020-10-22] MEDS: LORazepam 2 MG/ML, 1ML IVPush PRN (02:45)
[2020-10-22] MEDS: HEPARIN 5,000 UNITS/ML, 1ML SQ SCH ×4 (05:00→21:21)
[2020-10-22] MEDS: INSULIN LISPRO 100 UNITS/ML, PEN SQ-INSULIN SCH ×4 (05:00→23:40)
[2020-10-22 05:26] LABS: CHLORIDE 102 mmol/L (98-107)
[2020-10-22 05:36] LABS: ALBUMIN 2.6 g/dL (3.4-5.0); ANION GAP 8 mmol/L (5-15); CALCIUM 8.7 mg/dL (8.5-10.1); CREATININE 5.07 mg/dL (0.55-1.02)
[2020-10-22] MEDS: LEVOTHYROXINE 100 MCG TABLET PO SCH (05:44)
[2020-10-22] MEDS: CARVEDILOL 3.125 MG TABLET PO SCH ×2 (05:44→17:44)
[2020-10-22] MEDS: HYDROCORTISONE 5 MG TABLET PO SCH ×2 (05:45→11:06)
[2020-10-22] MEDS ORDERED: HYDROCORTISONE 10 MG TABLET ONE (05:46)
[2020-10-22 06:10] VITALS: BP 147/87
[2020-10-22] MEDS: POLYETHYLENE GLYCOL 17 GM PACKET PO SCH (09:00)
[2020-10-22] MEDS: LEVETIRACETAM 500 MG TABLET PO SCH ×2 (11:05→21:20)
[2020-10-22] MEDS: FAMOTIDINE 20 MG TABLET PO SCH (11:06)
[2020-10-22] MEDS: DOCUSATE 100 MG CAPSULE PO SCH ×2 (11:06→21:20)
[2020-10-22] MEDS: SEVELAMER CARBONATE 800MG TAB PO SCH ×3 (11:06→17:44)
[2020-10-22] MEDS: BUPROPION 100 MG TABLET PO SCH ×2 (11:06→21:21)
[2020-10-22] MEDS: SODIUM CHLORIDE FLUSH 10ML SYR IVF SCH ×2 (11:11→21:20)
[2020-10-22 14:47] VITALS: BP 166/72
[2020-10-22 19:42] VITALS: BP 139/86
[2020-10-22] MEDS: INSULIN GLARGINE 100 UNITS/ML, PEN SQ-INSULIN SCH (21:22)
[2020-10-22] MEDS: ACETAMINOPHEN 325 MG TABLET PO PRN (21:32)
[2020-10-23 01:44] VITALS: BP 165/76
[2020-10-23] MEDS: INSULIN LISPRO 100 UNITS/ML, PEN SQ-INSULIN SCH ×4 (05:00→23:40)
[2020-10-23] MEDS: HEPARIN 5,000 UNITS/ML, 1ML SQ SCH ×3 (05:33→20:40)
[2020-10-23] MEDS: HYDROCORTISONE 5 MG TABLET PO SCH ×2 (05:35→12:02)
[2020-10-23] MEDS: LEVOTHYROXINE 100 MCG TABLET PO SCH (05:35)
[2020-10-23] MEDS: CARVEDILOL 3.125 MG TABLET PO SCH ×2 (05:40→17:22)
[2020-10-23 06:48] VITALS: BP 106/65
[2020-10-23] MEDS: SODIUM CHLORIDE FLUSH 10ML SYR IVF SCH ×2 (09:00→20:39)
[2020-10-23] MEDS: LEVETIRACETAM 500 MG TABLET PO SCH ×2 (09:20→20:39)
[2020-10-23] MEDS: DOCUSATE 100 MG CAPSULE PO SCH ×2 (09:20→20:39)
[2020-10-23] MEDS: BUPROPION 100 MG TABLET PO SCH ×2 (09:20→20:39)
[2020-10-23] MEDS: FAMOTIDINE 20 MG TABLET PO SCH (09:20)
[2020-10-23] MEDS: SEVELAMER CARBONATE 800MG TAB PO SCH ×3 (09:20→17:21)
[2020-10-23] MEDS: POLYETHYLENE GLYCOL 17 GM PACKET PO SCH (09:21)
[2020-10-23 09:29] LABS: BASOPHILS % (AUTO) 0 % (0-1); EOSINOPHILS % (AUTO) 10 % (1-7); LYMPHOCYTES % (AUTO) 17 % (22-44); MEAN CORPUSCULAR HEMOGLOBIN 28.8 pg (27.0-34.8); MEAN CORPUSCULAR HGB CONC 32.5 g/dL (32.4-35.8); MEAN PLATELET VOLUME 9.5 fL (7.4-10.4); MONOCYTES % (AUTO) 9 % (2-9); NEUTROPHILS % (AUTO) 63 % (42-75); PLATELET COUNT 215 x10^3/uL (130-400); RED BLOOD COUNT 3.24 x10^6/uL (3.82-5.3); RED CELL DISTRIBUTION WIDTH 15.7 % (9.6-15.2)
[2020-10-23 09:35] LABS: ALBUMIN 2.9 g/dL (3.4-5.0); ANION GAP 11 mmol/L (5-15); CALCIUM 8.8 mg/dL (8.5-10.1); CHLORIDE 98 mmol/L (98-107); CREATININE 6.61 mg/dL (0.55-1.02)
[2020-10-23] MEDS ORDERED: SODIUM ZIRCONIUM CYCLOSILICATE 10 GM PO ONE (12:00)
[2020-10-23] MEDS: ACETAMINOPHEN 325 MG TABLET PO PRN (12:01)
[2020-10-23] MEDS: DARBEPOETIN 60 MCG/ML SQ SCH (12:02)
[2020-10-23 12:11] VITALS: BP 120/68
[2020-10-23] MEDS: HYDROcodone/APAP 5/325 TABLET PO PRN (17:21)
[2020-10-23 18:46] VITALS: BP 137/71
[2020-10-23] MEDS: INSULIN GLARGINE 100 UNITS/ML, PEN SQ-INSULIN SCH (20:40)
[2020-10-24 00:26] VITALS: BP 119/83
[2020-10-24] MEDS: MELATONIN 5 MG TABLET PO PRN (00:36)
[2020-10-24] MEDS: INSULIN LISPRO 100 UNITS/ML, PEN SQ-INSULIN SCH ×4 (05:00→22:25)
[2020-10-24] MEDS: LEVOTHYROXINE 100 MCG TABLET PO SCH (05:54)
[2020-10-24] MEDS: HYDROCORTISONE 5 MG TABLET PO SCH ×2 (05:55→13:08)
[2020-10-24] MEDS: HEPARIN 5,000 UNITS/ML, 1ML SQ SCH ×3 (05:55→21:12)
[2020-10-24 06:30] VITALS: BP 123/62
[2020-10-24] MEDS: SEVELAMER CARBONATE 800MG TAB PO SCH ×3 (08:00→17:07)
[2020-10-24] MEDS: POLYETHYLENE GLYCOL 17 GM PACKET PO SCH (09:00)
[2020-10-24] MEDS: SODIUM CHLORIDE FLUSH 10ML SYR IVF SCH ×2 (09:00→21:12)
[2020-10-24] MEDS: DOCUSATE 100 MG CAPSULE PO SCH ×2 (10:35→21:11)
[2020-10-24] MEDS: BUPROPION 100 MG TABLET PO SCH ×2 (10:36→21:11)
[2020-10-24] MEDS: LEVETIRACETAM 500 MG TABLET PO SCH ×2 (10:36→21:11)
[2020-10-24] MEDS: FAMOTIDINE 20 MG TABLET PO SCH (10:36)
[2020-10-24] MEDS: LORazepam 2 MG/ML, 1ML IVPush PRN ×2 (12:20→22:40)
[2020-10-24] MEDS ORDERED: INSULIN LISPRO 100 UNIT/ML, 3ML VIAL SQ-INSULIN ONE ×2 (18:00→22:00)
[2020-10-24] MEDS: CARVEDILOL 3.125 MG TABLET PO SCH (18:20)
[2020-10-24 18:25] VITALS: BP 141/80
[2020-10-24] MEDS: HYDROcodone/APAP 5/325 TABLET PO PRN (22:16)
[2020-10-24] MEDS: INSULIN GLARGINE 100 UNITS/ML, PEN SQ-INSULIN SCH (22:16)
[2020-10-24] MEDS ORDERED: INSULIN LISPRO 100 UNITS/ML, PEN SQ-INSULIN ONE (22:30)
[2020-10-25 00:37] VITALS: BP 133/76
[2020-10-25] MEDS: INSULIN LISPRO 100 UNITS/ML, PEN SQ-INSULIN SCH ×4 (04:29→23:44)
[2020-10-25] MEDS: HEPARIN 5,000 UNITS/ML, 1ML SQ SCH ×3 (04:30→21:48)
[2020-10-25] MEDS: HYDROcodone/APAP 5/325 TABLET PO PRN (04:31)
[2020-10-25] MEDS: HYDROCORTISONE 5 MG TABLET PO SCH ×2 (05:09→13:02)
[2020-10-25 05:10] LABS: BASOPHILS % (AUTO) 2 % (0-1); EOSINOPHILS % (AUTO) 8 % (1-7); LYMPHOCYTES % (AUTO) 25 % (22-44); MEAN CORPUSCULAR HEMOGLOBIN 29.5 pg (27.0-34.8); MEAN CORPUSCULAR HGB CONC 33.3 g/dL (32.4-35.8); MEAN PLATELET VOLUME 8.6 fL (7.4-10.4); MONOCYTES % (AUTO) 12 % (2-9); NEUTROPHILS % (AUTO) 54 % (42-75); PLATELET COUNT 233 x10^3/uL (130-400); RED BLOOD COUNT 3.26 x10^6/uL (3.82-5.3); RED CELL DISTRIBUTION WIDTH 15.1 % (9.6-15.2)
[2020-10-25] MEDS: LEVOTHYROXINE 100 MCG TABLET PO SCH (05:10)
[2020-10-25] MEDS: CARVEDILOL 3.125 MG TABLET PO SCH ×2 (05:10→17:12)
[2020-10-25 05:26] LABS: ANION GAP 13 mmol/L (5-15); CALCIUM 8.9 mg/dL (8.5-10.1); CHLORIDE 97 mmol/L (98-107)
[2020-10-25 05:29] LABS: ALANINE AMINOTRANSFERASE 17 U/L (12-78); ALKALINE PHOSPHATASE 171 U/L (45-117); BILIRUBIN,TOTAL 0.3 mg/dL (0.2-1.0); CREATININE 5.88 mg/dL (0.55-1.02); TOTAL PROTEIN 7.5 g/dL (6.4-8.2)
[2020-10-25 07:16] VITALS: BP 92/62
[2020-10-25] MEDS: SEVELAMER CARBONATE 800MG TAB PO SCH ×3 (08:00→17:10)
[2020-10-25] MEDS: BUPROPION 100 MG TABLET PO SCH ×2 (09:00→21:31)
[2020-10-25] MEDS: SODIUM CHLORIDE FLUSH 10ML SYR IVF SCH ×2 (09:00→21:31)
[2020-10-25] MEDS: DOCUSATE 100 MG CAPSULE PO SCH ×2 (09:00→21:31)
[2020-10-25] MEDS: LEVETIRACETAM 500 MG TABLET PO SCH ×2 (09:00→21:31)
[2020-10-25] MEDS: POLYETHYLENE GLYCOL 17 GM PACKET PO SCH (09:00)
[2020-10-25] MEDS: FAMOTIDINE 20 MG TABLET PO SCH (09:00)
[2020-10-25] MEDS: ACETAMINOPHEN 325 MG TABLET PO PRN (09:18)
[2020-10-25 12:12] VITALS: BP 123/42
[2020-10-25 17:13] VITALS: BP 164/103
[2020-10-25 20:12] VITALS: BP 123/78
[2020-10-25] MEDS: INSULIN GLARGINE 100 UNITS/ML, PEN SQ-INSULIN SCH (21:00)
[2020-10-26 00:22] VITALS: BP 134/85
[2020-10-26 05:17] LABS: BASOPHILS % (AUTO) 2 % (0-1); EOSINOPHILS % (AUTO) 10 % (1-7); LYMPHOCYTES % (AUTO) 24 % (22-44); MEAN CORPUSCULAR HEMOGLOBIN 29.1 pg (27.0-34.8); MEAN CORPUSCULAR HGB CONC 32.6 g/dL (32.4-35.8); MEAN PLATELET VOLUME 9.6 fL (7.4-10.4); MONOCYTES % (AUTO) 12 % (2-9); NEUTROPHILS % (AUTO) 52 % (42-75); PLATELET COUNT 227 x10^3/uL (130-400); RED BLOOD COUNT 3.28 x10^6/uL (3.82-5.3); RED CELL DISTRIBUTION WIDTH 15.3 % (9.6-15.2)
[2020-10-26] MEDS: HEPARIN 5,000 UNITS/ML, 1ML SQ SCH ×3 (05:18→22:00)
[2020-10-26] MEDS: INSULIN LISPRO 100 UNITS/ML, PEN SQ-INSULIN SCH ×4 (05:18→21:20)
[2020-10-26] MEDS: LEVOTHYROXINE 100 MCG TABLET PO SCH (05:18)
[2020-10-26] MEDS: HYDROCORTISONE 5 MG TABLET PO SCH ×2 (05:19→11:15)
[2020-10-26 05:29] LABS: ALBUMIN 2.9 g/dL (3.4-5.0); ANION GAP 10 mmol/L (5-15); CALCIUM 8.7 mg/dL (8.5-10.1); CHLORIDE 98 mmol/L (98-107)
[2020-10-26 05:33] LABS: ALANINE AMINOTRANSFERASE 15 U/L (12-78); ALKALINE PHOSPHATASE 158 U/L (45-117); BILIRUBIN,TOTAL 0.3 mg/dL (0.2-1.0); CREATININE 7.39 mg/dL (0.55-1.02); TOTAL PROTEIN 7.1 g/dL (6.4-8.2)
[2020-10-26 07:01] VITALS: BP 90/56
[2020-10-26] MEDS: FAMOTIDINE 20 MG TABLET PO SCH (08:21)
[2020-10-26] MEDS: HYDROcodone/APAP 5/325 TABLET PO PRN ×3 (08:21→21:21)
[2020-10-26] MEDS: DOCUSATE 100 MG CAPSULE PO SCH ×2 (08:21→21:07)
[2020-10-26] MEDS: POLYETHYLENE GLYCOL 17 GM PACKET PO SCH (08:22)
[2020-10-26] MEDS: SEVELAMER CARBONATE 800MG TAB PO SCH ×3 (08:22→17:54)
[2020-10-26] MEDS: BUPROPION 100 MG TABLET PO SCH ×2 (08:22→21:07)
[2020-10-26] MEDS: LEVETIRACETAM 500 MG TABLET PO SCH ×2 (08:22→21:06)
[2020-10-26] MEDS: SODIUM CHLORIDE FLUSH 10ML SYR IVF SCH ×2 (08:27→21:07)
[2020-10-26] MEDS: LORazepam 2 MG/ML, 1ML IVPush PRN ×2 (08:27→23:12)
[2020-10-26 12:50] VITALS: BP 122/56
[2020-10-26 17:52] VITALS: BP 137/109
[2020-10-26] MEDS: CARVEDILOL 3.125 MG TABLET PO SCH (17:54)
[2020-10-26 20:52] VITALS: BP 132/79
[2020-10-26] MEDS: INSULIN GLARGINE 100 UNITS/ML, PEN SQ-INSULIN SCH (21:20)
[2020-10-27] MEDS: ACETAMINOPHEN 325 MG TABLET PO PRN (00:36)
[2020-10-27] MEDS: MELATONIN 5 MG TABLET PO PRN (00:36)
[2020-10-27] MEDS: HYDROcodone/APAP 5/325 TABLET PO PRN ×2 (01:20→21:57)
[2020-10-27] MEDS ORDERED: LORazepam 2 MG/ML, 1ML IVPush ONE (01:30)
[2020-10-27 02:18] VITALS: BP 120/79
[2020-10-27] MEDS: INSULIN LISPRO 100 UNITS/ML, PEN SQ-INSULIN SCH ×4 (03:00→21:16)
[2020-10-27] MEDS: DEXTROSE 4 GM TAB.CHEW PO PRN (03:43)
[2020-10-27 04:03] LABS: ALBUMIN 2.6 g/dL (3.4-5.0); ANION GAP 5 mmol/L (5-15); CALCIUM 8.8 mg/dL (8.5-10.1); CHLORIDE 103 mmol/L (98-107); CREATININE 5.23 mg/dL (0.55-1.02)
[2020-10-27] MEDS: CARVEDILOL 3.125 MG TABLET PO SCH ×2 (06:00→17:37)
[2020-10-27] MEDS: LEVOTHYROXINE 100 MCG TABLET PO SCH (06:08)
[2020-10-27] MEDS: HEPARIN 5,000 UNITS/ML, 1ML SQ SCH ×3 (06:08→21:57)
[2020-10-27] MEDS: HYDROCORTISONE 5 MG TABLET PO SCH ×2 (06:09→12:12)
[2020-10-27 07:46] VITALS: BP 124/76
[2020-10-27] MEDS: BUPROPION 100 MG TABLET PO SCH ×2 (09:10→21:12)
[2020-10-27] MEDS: SODIUM CHLORIDE FLUSH 10ML SYR IVF SCH ×2 (09:10→21:12)
[2020-10-27] MEDS: DOCUSATE 100 MG CAPSULE PO SCH ×2 (09:10→21:13)
[2020-10-27] MEDS: POLYETHYLENE GLYCOL 17 GM PACKET PO SCH (09:10)
[2020-10-27] MEDS: FAMOTIDINE 20 MG TABLET PO SCH (09:10)
[2020-10-27] MEDS: SEVELAMER CARBONATE 800MG TAB PO SCH ×3 (09:10→17:36)
[2020-10-27] MEDS: LEVETIRACETAM 500 MG TABLET PO SCH ×2 (09:10→21:13)
[2020-10-27 12:23] VITALS: BP 121/87
[2020-10-27 20:20] VITALS: BP 140/67
[2020-10-27] MEDS: INSULIN GLARGINE 100 UNITS/ML, PEN SQ-INSULIN SCH (21:17)
[2020-10-28 00:40] VITALS: BP 132/79
[2020-10-28] MEDS: DEXTROSE 50%, 50ML SYRINGE IVPush PRN (03:05)
[2020-10-28] MEDS: INSULIN LISPRO 100 UNITS/ML, PEN SQ-INSULIN SCH ×4 (03:10→21:51)
[2020-10-28 03:18] VITALS: BP 197/93
[2020-10-28] MEDS: HEPARIN 5,000 UNITS/ML, 1ML SQ SCH ×3 (05:59→22:13)
[2020-10-28] MEDS: LEVOTHYROXINE 100 MCG TABLET PO SCH (05:59)
[2020-10-28] MEDS: HYDROCORTISONE 5 MG TABLET PO SCH ×2 (06:00→11:28)
[2020-10-28 06:02] VITALS: BP 131/77
[2020-10-28] MEDS ORDERED: INSULIN LISPRO 100 UNITS/ML, PEN SQ-INSULIN SCH (07:00)
[2020-10-28 07:47] LABS: ALBUMIN 2.7 g/dL (3.4-5.0); ANION GAP 8 mmol/L (5-15); CALCIUM 9.1 mg/dL (8.5-10.1); CHLORIDE 103 mmol/L (98-107); CREATININE 6.69 mg/dL (0.55-1.02)
[2020-10-28] MEDS: SODIUM CHLORIDE FLUSH 10ML SYR IVF SCH ×2 (08:00→22:00)
[2020-10-28] MEDS ORDERED: DEXTROSE 50%, 50ML SYRINGE IVPush ONE (08:00)
[2020-10-28] MEDS: BUPROPION 100 MG TABLET PO SCH ×2 (09:02→21:59)
[2020-10-28] MEDS: SEVELAMER CARBONATE 800MG TAB PO SCH ×3 (09:02→17:32)
[2020-10-28] MEDS: FAMOTIDINE 20 MG TABLET PO SCH (09:02)
[2020-10-28] MEDS: DOCUSATE 100 MG CAPSULE PO SCH ×2 (09:02→21:59)
[2020-10-28] MEDS: LEVETIRACETAM 500 MG TABLET PO SCH ×2 (09:02→21:59)
[2020-10-28] MEDS: POLYETHYLENE GLYCOL 17 GM PACKET PO SCH (09:06)
[2020-10-28] MEDS: ERGOCALCIFEROL 50,000 UNIT CAPSULE PO SCH (11:29)
[2020-10-28 12:21] VITALS: BP 124/76
[2020-10-28] MEDS: CARVEDILOL 3.125 MG TABLET PO SCH (17:09)
[2020-10-28 18:56] VITALS: BP 99/58
[2020-10-29 02:03] VITALS: BP 131/86
[2020-10-29] MEDS: INSULIN LISPRO 100 UNITS/ML, PEN SQ-INSULIN SCH ×5 (02:39→20:16)
[2020-10-29 05:45] LABS: BASOPHILS % (AUTO) 1 % (0-1); EOSINOPHILS % (AUTO) 10 % (1-7); LYMPHOCYTES % (AUTO) 23 % (22-44); MEAN CORPUSCULAR HEMOGLOBIN 29.1 pg (27.0-34.8); MEAN CORPUSCULAR HGB CONC 32.8 g/dL (32.4-35.8); MEAN PLATELET VOLUME 9.5 fL (7.4-10.4); MONOCYTES % (AUTO) 11 % (2-9); NEUTROPHILS % (AUTO) 54 % (42-75); PLATELET COUNT 219 x10^3/uL (130-400); RED CELL DISTRIBUTION WIDTH 15.5 % (9.6-15.2)
[2020-10-29 06:02] LABS: CHLORIDE 102 mmol/L (98-107)
[2020-10-29 06:07] LABS: ALBUMIN 2.6 g/dL (3.4-5.0); ANION GAP 9 mmol/L (5-15); CALCIUM 8.3 mg/dL (8.5-10.1); CREATININE 4.94 mg/dL (0.55-1.02)
[2020-10-29] MEDS: LEVOTHYROXINE 100 MCG TABLET PO SCH (06:09)
[2020-10-29] MEDS: HYDROCORTISONE 5 MG TABLET PO SCH ×2 (06:10→12:06)
[2020-10-29] MEDS: HEPARIN 5,000 UNITS/ML, 1ML SQ SCH ×3 (06:10→21:47)
[2020-10-29] MEDS: CARVEDILOL 3.125 MG TABLET PO SCH ×2 (06:10→17:31)
[2020-10-29 07:58] VITALS: BP 142/75
[2020-10-29] MEDS: LEVETIRACETAM 500 MG TABLET PO SCH ×2 (08:12→21:47)
[2020-10-29] MEDS: SEVELAMER CARBONATE 800MG TAB PO SCH ×3 (08:12→17:31)
[2020-10-29] MEDS: POLYETHYLENE GLYCOL 17 GM PACKET PO SCH (08:12)
[2020-10-29] MEDS: DOCUSATE 100 MG CAPSULE PO SCH ×2 (08:12→21:47)
[2020-10-29] MEDS: FAMOTIDINE 20 MG TABLET PO SCH (08:12)
[2020-10-29] MEDS: BUPROPION 100 MG TABLET PO SCH ×2 (08:12→21:47)
[2020-10-29] MEDS: SODIUM CHLORIDE FLUSH 10ML SYR IVF SCH ×2 (08:24→22:07)
[2020-10-29] MEDS: HYDROcodone/APAP 5/325 TABLET PO PRN ×2 (08:43→21:51)
[2020-10-29 13:14] VITALS: BP 111/45
[2020-10-29 20:00] VITALS: BP 155/78
[2020-10-29] MEDS: MELATONIN 5 MG TABLET PO PRN (21:47)
[2020-10-30 01:14] VITALS: BP 155/80
[2020-10-30] MEDS: INSULIN LISPRO 100 UNITS/ML, PEN SQ-INSULIN SCH ×4 (02:06→20:19)
[2020-10-30 06:22] VITALS: BP 151/93
[2020-10-30] MEDS: HYDROCORTISONE 5 MG TABLET PO SCH ×2 (06:28→13:39)
[2020-10-30] MEDS: CARVEDILOL 3.125 MG TABLET PO SCH ×2 (06:28→18:47)
[2020-10-30] MEDS: HEPARIN 5,000 UNITS/ML, 1ML SQ SCH ×4 (06:28→21:36)
[2020-10-30] MEDS: LEVOTHYROXINE 100 MCG TABLET PO SCH (06:28)
[2020-10-30] MEDS: DOCUSATE 100 MG CAPSULE PO SCH ×2 (09:00→21:38)
[2020-10-30 09:20] LABS: ANION GAP 10 mmol/L (5-15); CHLORIDE 97 mmol/L (98-107); CREATININE 6.66 mg/dL (0.55-1.02)
[2020-10-30 09:54] LABS: BASOPHILS % (AUTO) 1 % (0-1); EOSINOPHILS % (AUTO) 9 % (1-7); LYMPHOCYTES % (AUTO) 21 % (22-44); MEAN CORPUSCULAR HEMOGLOBIN 29.1 pg (27.0-34.8); MEAN CORPUSCULAR HGB CONC 32.9 g/dL (32.4-35.8); MEAN PLATELET VOLUME 9.8 fL (7.4-10.4); MONOCYTES % (AUTO) 10 % (2-9); NEUTROPHILS % (AUTO) 59 % (42-75); PLATELET COUNT 238 x10^3/uL (130-400); RED CELL DISTRIBUTION WIDTH 15.7 % (9.6-15.2)
[2020-10-30] MEDS: SEVELAMER CARBONATE 800MG TAB PO SCH ×3 (10:28→18:47)
[2020-10-30] MEDS: LEVETIRACETAM 500 MG TABLET PO SCH ×2 (10:28→21:37)
[2020-10-30] MEDS: FAMOTIDINE 20 MG TABLET PO SCH (10:28)
[2020-10-30] MEDS: BUPROPION 100 MG TABLET PO SCH ×2 (10:28→21:37)
[2020-10-30] MEDS: HYDROcodone/APAP 5/325 TABLET PO PRN (10:32)
[2020-10-30] MEDS: POLYETHYLENE GLYCOL 17 GM PACKET PO SCH (10:32)
[2020-10-30 12:56] VITALS: BP 141/51
[2020-10-30] MEDS: SODIUM CHLORIDE FLUSH 10ML SYR IVF SCH ×2 (13:38→21:38)
[2020-10-30] MEDS: DARBEPOETIN 60 MCG/ML SQ SCH (13:40)
[2020-10-30] MEDS: SODIUM ZIRCONIUM CYCLOSILICATE 10 GM PO SCH (15:10)
[2020-10-30 21:02] VITALS: BP 153/81
[2020-10-30] MEDS ORDERED: INSULIN LISPRO 100 UNIT/ML, 3ML VIAL SQ-INSULIN ONE (21:30)
[2020-10-30] MEDS: MELATONIN 5 MG TABLET PO PRN (21:37)
[2020-10-31 01:18] VITALS: BP 130/90
[2020-10-31] MEDS: INSULIN LISPRO 100 UNITS/ML, PEN SQ-INSULIN SCH ×4 (02:00→20:40)
[2020-10-31] MEDS: LEVOTHYROXINE 100 MCG TABLET PO SCH (06:15)
[2020-10-31] MEDS: HEPARIN 5,000 UNITS/ML, 1ML SQ SCH ×3 (06:16→22:24)
[2020-10-31] MEDS: HYDROCORTISONE 5 MG TABLET PO SCH ×2 (06:16→15:51)
[2020-10-31 06:59] LABS: BASOPHILS % (AUTO) 0 % (0-1); EOSINOPHILS % (AUTO) 11 % (1-7); LYMPHOCYTES % (AUTO) 29 % (22-44); MEAN CORPUSCULAR HGB CONC 32.7 g/dL (32.4-35.8); MEAN PLATELET VOLUME 9.6 fL (7.4-10.4); MONOCYTES % (AUTO) 10 % (2-9); NEUTROPHILS % (AUTO) 50 % (42-75); PLATELET COUNT 259 x10^3/uL (130-400); RED BLOOD COUNT 3.06 x10^6/uL (3.82-5.3); RED CELL DISTRIBUTION WIDTH 15.3 % (9.6-15.2)
[2020-10-31 07:10] LABS: ALBUMIN 2.7 g/dL (3.4-5.0); ANION GAP 11 mmol/L (5-15); CALCIUM 8.8 mg/dL (8.5-10.1); CHLORIDE 96 mmol/L (98-107); CREATININE 7.49 mg/dL (0.55-1.02)
[2020-10-31 07:20] VITALS: BP 122/41
[2020-10-31] MEDS: POLYETHYLENE GLYCOL 17 GM PACKET PO SCH (08:26)
[2020-10-31] MEDS: DOCUSATE 100 MG CAPSULE PO SCH ×2 (08:26→20:33)
[2020-10-31] MEDS: LEVETIRACETAM 500 MG TABLET PO SCH ×2 (08:38→20:41)
[2020-10-31] MEDS: SEVELAMER CARBONATE 800MG TAB PO SCH ×3 (08:38→17:35)
[2020-10-31] MEDS: FAMOTIDINE 20 MG TABLET PO SCH (08:38)
[2020-10-31] MEDS: BUPROPION 100 MG TABLET PO SCH ×2 (08:38→20:41)
[2020-10-31] MEDS: SODIUM ZIRCONIUM CYCLOSILICATE 10 GM PO SCH (08:39)
[2020-10-31] MEDS: ONDANSETRON 2MG/ML, 2ML IVPush PRN (08:47)
[2020-10-31] MEDS: SODIUM CHLORIDE FLUSH 10ML SYR IVF SCH ×2 (09:00→20:41)
[2020-10-31 16:17] VITALS: BP 137/76
[2020-10-31] MEDS: CARVEDILOL 3.125 MG TABLET PO SCH (17:35)
[2020-10-31 19:02] VITALS: BP 162/83
[2020-11-01 01:09] VITALS: BP 159/96
[2020-11-01] MEDS: INSULIN LISPRO 100 UNITS/ML, PEN SQ-INSULIN SCH ×5 (02:28→21:30)
[2020-11-01] MEDS: HEPARIN 5,000 UNITS/ML, 1ML SQ SCH ×3 (05:48→22:54)
[2020-11-01] MEDS: HYDROCORTISONE 5 MG TABLET PO SCH ×2 (05:53→13:45)
[2020-11-01] MEDS: CARVEDILOL 3.125 MG TABLET PO SCH ×2 (05:53→18:30)
[2020-11-01] MEDS: LEVOTHYROXINE 100 MCG TABLET PO SCH (05:54)
[2020-11-01 06:37] LABS: BASOPHILS % (AUTO) 2 % (0-1); EOSINOPHILS % (AUTO) 12 % (1-7); LYMPHOCYTES % (AUTO) 25 % (22-44); MEAN CORPUSCULAR HEMOGLOBIN 29.3 pg (27.0-34.8); MEAN CORPUSCULAR HGB CONC 33.1 g/dL (32.4-35.8); MEAN PLATELET VOLUME 9.4 fL (7.4-10.4); MONOCYTES % (AUTO) 11 % (2-9); NEUTROPHILS % (AUTO) 51 % (42-75); PLATELET COUNT 242 x10^3/uL (130-400); RED BLOOD COUNT 3.06 x10^6/uL (3.82-5.3); RED CELL DISTRIBUTION WIDTH 15.6 % (9.6-15.2)
[2020-11-01 06:46] LABS: ALBUMIN 2.8 g/dL (3.4-5.0); ANION GAP 11 mmol/L (5-15); CALCIUM 8.8 mg/dL (8.5-10.1); CHLORIDE 101 mmol/L (98-107); CREATININE 5.34 mg/dL (0.55-1.02)
[2020-11-01 07:20] VITALS: BP 142/58
[2020-11-01] MEDS ORDERED: LIDOCAINE 1%, 10ML ONE (07:41)
[2020-11-01] MEDS ORDERED: FENTANYL PF 100 MCG/2ML ONE (07:49)
[2020-11-01] MEDS ORDERED: HEPARIN 1,000 UNITS/ML, 10ML ONE (07:50)
[2020-11-01] MEDS ORDERED: FLUMAZENIL 0.1 MG/1 ML, 5ML ONE (07:50)
[2020-11-01] MEDS ORDERED: NALOXONE 1 MG/ML, 2ML ONE (07:50)
[2020-11-01] MEDS ORDERED: MIDAZOLAM 1 MG/ML, 5ML ONE (07:50)
[2020-11-01] MEDS: SEVELAMER CARBONATE 800MG TAB PO SCH ×3 (08:00→18:30)
[2020-11-01] MEDS: DOCUSATE 100 MG CAPSULE PO SCH ×2 (09:00→21:26)
[2020-11-01] MEDS: POLYETHYLENE GLYCOL 17 GM PACKET PO SCH (13:41)
[2020-11-01] MEDS: LEVETIRACETAM 500 MG TABLET PO SCH ×2 (13:41→21:26)
[2020-11-01] MEDS: BUPROPION 100 MG TABLET PO SCH ×2 (13:41→21:26)
[2020-11-01] MEDS: FAMOTIDINE 20 MG TABLET PO SCH (13:41)
[2020-11-01] MEDS: SODIUM ZIRCONIUM CYCLOSILICATE 10 GM PO SCH (13:41)
[2020-11-01] MEDS: SODIUM CHLORIDE FLUSH 10ML SYR IVF SCH ×2 (13:45→21:25)
[2020-11-01 14:01] VITALS: BP 164/92
[2020-11-01] MEDS: HYDROcodone/APAP 5/325 TABLET PO PRN (18:30)
[2020-11-01 19:07] VITALS: BP 159/96
[2020-11-01] MEDS ORDERED: INSULIN LISPRO 100 UNITS/ML, PEN SQ-INSULIN ONE (21:30)
[2020-11-02] MEDS: HYDROcodone/APAP 5/325 TABLET PO PRN ×2 (00:40→15:26)
[2020-11-02 01:22] VITALS: BP 149/82
[2020-11-02] MEDS: INSULIN LISPRO 100 UNITS/ML, PEN SQ-INSULIN SCH ×4 (03:15→21:25)
[2020-11-02] MEDS: HEPARIN 5,000 UNITS/ML, 1ML SQ SCH ×3 (05:58→23:31)
[2020-11-02] MEDS: LEVOTHYROXINE 100 MCG TABLET PO SCH (05:58)
[2020-11-02] MEDS: HYDROCORTISONE 5 MG TABLET PO SCH ×2 (05:59→13:44)
[2020-11-02 07:01] VITALS: BP 159/141
[2020-11-02] MEDS: ONDANSETRON 2MG/ML, 2ML IVPush PRN (07:14)
[2020-11-02] MEDS: DOCUSATE 100 MG CAPSULE PO SCH ×2 (09:00→20:35)
[2020-11-02] MEDS: SEVELAMER CARBONATE 800MG TAB PO SCH ×3 (09:03→20:35)
[2020-11-02] MEDS: BUPROPION 100 MG TABLET PO SCH ×2 (09:03→20:35)
[2020-11-02] MEDS: LEVETIRACETAM 500 MG TABLET PO SCH ×2 (09:03→20:35)
[2020-11-02] MEDS: SODIUM ZIRCONIUM CYCLOSILICATE 10 GM PO SCH (09:04)
[2020-11-02] MEDS: FAMOTIDINE 20 MG TABLET PO SCH (09:04)
[2020-11-02] MEDS: POLYETHYLENE GLYCOL 17 GM PACKET PO SCH (09:04)
[2020-11-02] MEDS: SODIUM CHLORIDE FLUSH 10ML SYR IVF SCH ×2 (09:05→20:36)
[2020-11-02 12:28] VITALS: BP 134/84
[2020-11-02 16:15] LABS: BASOPHILS % (AUTO) 2 % (0-1); EOSINOPHILS % (AUTO) 6 % (1-7); LYMPHOCYTES % (AUTO) 25 % (22-44); MEAN CORPUSCULAR HEMOGLOBIN 28.9 pg (27.0-34.8); MEAN CORPUSCULAR HGB CONC 32.6 g/dL (32.4-35.8); MEAN PLATELET VOLUME 9.8 fL (7.4-10.4); MONOCYTES % (AUTO) 10 % (2-9); NEUTROPHILS % (AUTO) 58 % (42-75); PLATELET COUNT 247 x10^3/uL (130-400); RED BLOOD COUNT 2.89 x10^6/uL (3.82-5.3); RED CELL DISTRIBUTION WIDTH 15.6 % (9.6-15.2)
[2020-11-02 16:20] LABS: ALBUMIN 2.6 g/dL (3.4-5.0); ANION GAP 14 mmol/L (5-15); CALCIUM 8.5 mg/dL (8.5-10.1); CHLORIDE 97 mmol/L (98-107); CREATININE 7.33 mg/dL (0.55-1.02)
[2020-11-02 20:28] VITALS: BP 113/74
[2020-11-02] MEDS: CARVEDILOL 3.125 MG TABLET PO SCH (20:35)
[2020-11-03 01:42] VITALS: BP 109/68
[2020-11-03] MEDS: INSULIN LISPRO 100 UNITS/ML, PEN SQ-INSULIN SCH ×4 (02:41→21:22)
[2020-11-03 06:17] VITALS: BP 105/84
[2020-11-03] MEDS: CARVEDILOL 3.125 MG TABLET PO SCH ×2 (06:24→17:55)
[2020-11-03] MEDS: LEVOTHYROXINE 100 MCG TABLET PO SCH (06:24)
[2020-11-03] MEDS: HYDROCORTISONE 5 MG TABLET PO SCH ×2 (06:24→12:44)
[2020-11-03 07:02] VITALS: BP 156/99
[2020-11-03] MEDS: SEVELAMER CARBONATE 800MG TAB PO SCH ×3 (09:30→17:54)
[2020-11-03] MEDS: BUPROPION 100 MG TABLET PO SCH ×2 (09:30→21:21)
[2020-11-03] MEDS: FAMOTIDINE 20 MG TABLET PO SCH (09:30)
[2020-11-03] MEDS: LEVETIRACETAM 500 MG TABLET PO SCH ×2 (09:30→21:21)
[2020-11-03] MEDS: DOCUSATE 100 MG CAPSULE PO SCH ×2 (09:30→21:00)
[2020-11-03] MEDS: HEPARIN 5,000 UNITS/ML, 1ML SQ SCH ×2 (09:30→16:20)
[2020-11-03] MEDS: POLYETHYLENE GLYCOL 17 GM PACKET PO SCH (09:31)
[2020-11-03] MEDS: SODIUM ZIRCONIUM CYCLOSILICATE 10 GM PO SCH (12:03)
[2020-11-03] MEDS: SODIUM CHLORIDE FLUSH 10ML SYR IVF SCH ×2 (12:45→21:22)
[2020-11-03 13:56] VITALS: BP 106/54
[2020-11-03 17:49] VITALS: BP 134/57
[2020-11-03] MEDS: HYDROcodone/APAP 5/325 TABLET PO PRN (17:54)
[2020-11-03 19:20] VITALS: BP 145/90
[2020-11-03] MEDS: ACETAMINOPHEN 325 MG TABLET PO PRN (22:07)
[2020-11-04] MEDS: HEPARIN 5,000 UNITS/ML, 1ML SQ SCH ×4 (00:15→23:39)
[2020-11-04 00:21] VITALS: BP 166/106
[2020-11-04] MEDS: INSULIN LISPRO 100 UNITS/ML, PEN SQ-INSULIN SCH ×4 (03:38→21:45)
[2020-11-04] MEDS: HYDROCORTISONE 5 MG TABLET PO SCH ×2 (06:35→11:39)
[2020-11-04] MEDS: LEVOTHYROXINE 100 MCG TABLET PO SCH (06:35)
[2020-11-04 07:57] VITALS: BP 138/81
[2020-11-04 08:07] LABS: ALANINE AMINOTRANSFERASE 20 U/L (12-78); ALBUMIN 2.8 g/dL (3.4-5.0); ANION GAP 9 mmol/L (5-15); CALCIUM 8.7 mg/dL (8.5-10.1); CHLORIDE 97 mmol/L (98-107); CREATININE 6.65 mg/dL (0.55-1.02)
[2020-11-04 08:10] LABS: ALKALINE PHOSPHATASE 168 U/L (45-117); BILIRUBIN,TOTAL 0.3 mg/dL (0.2-1.0); TOTAL PROTEIN 7.2 g/dL (6.4-8.2)
[2020-11-04] MEDS: SODIUM CHLORIDE FLUSH 10ML SYR IVF SCH ×2 (08:29→21:44)
[2020-11-04] MEDS: LEVETIRACETAM 500 MG TABLET PO SCH ×2 (08:30→21:43)
[2020-11-04] MEDS: FAMOTIDINE 20 MG TABLET PO SCH (08:30)
[2020-11-04] MEDS: DOCUSATE 100 MG CAPSULE PO SCH ×2 (08:30→21:43)
[2020-11-04] MEDS: SEVELAMER CARBONATE 800MG TAB PO SCH ×3 (08:30→17:54)
[2020-11-04] MEDS: BUPROPION 100 MG TABLET PO SCH ×2 (08:30→21:43)
[2020-11-04] MEDS: SODIUM ZIRCONIUM CYCLOSILICATE 10 GM PO SCH (08:31)
[2020-11-04] MEDS: POLYETHYLENE GLYCOL 17 GM PACKET PO SCH (08:41)
[2020-11-04] MEDS: ERGOCALCIFEROL 50,000 UNIT CAPSULE PO SCH (08:42)
[2020-11-04] MEDS: HYDROcodone/APAP 5/325 TABLET PO PRN (09:39)
[2020-11-04] MEDS: LORazepam 2 MG/ML, 1ML IVPush PRN (11:39)
[2020-11-04 15:12] VITALS: BP 165/101
[2020-11-04] MEDS: CARVEDILOL 3.125 MG TABLET PO SCH (17:54)
[2020-11-04 18:45] VITALS: BP 152/95
[2020-11-05 00:41] VITALS: BP 148/97
[2020-11-05] MEDS: HYDROcodone/APAP 5/325 TABLET PO PRN (02:58)
[2020-11-05] MEDS: INSULIN LISPRO 100 UNITS/ML, PEN SQ-INSULIN SCH ×4 (03:16→21:00)
[2020-11-05 05:35] VITALS: BP 116/84
[2020-11-05] MEDS: CARVEDILOL 3.125 MG TABLET PO SCH ×2 (05:36→17:30)
[2020-11-05] MEDS: LEVOTHYROXINE 100 MCG TABLET PO SCH (05:37)
[2020-11-05] MEDS: HYDROCORTISONE 5 MG TABLET PO SCH ×2 (05:37→11:18)
[2020-11-05 05:41] LABS: BASOPHILS % (AUTO) 1 % (0-1); EOSINOPHILS % (AUTO) 11 % (1-7); LYMPHOCYTES % (AUTO) 23 % (22-44); MEAN CORPUSCULAR HEMOGLOBIN 29.3 pg (27.0-34.8); MEAN CORPUSCULAR HGB CONC 32.7 g/dL (32.4-35.8); MEAN PLATELET VOLUME 9.8 fL (7.4-10.4); MONOCYTES % (AUTO) 13 % (2-9); NEUTROPHILS % (AUTO) 52 % (42-75); PLATELET COUNT 251 x10^3/uL (130-400); RED BLOOD COUNT 3.22 x10^6/uL (3.82-5.3); RED CELL DISTRIBUTION WIDTH 15.1 % (9.6-15.2)
[2020-11-05 05:54] LABS: ANION GAP 9 mmol/L (5-15); CHLORIDE 102 mmol/L (98-107)
[2020-11-05 06:00] LABS: ALANINE AMINOTRANSFERASE 18 U/L (12-78); ALBUMIN 2.6 g/dL (3.4-5.0); ALKALINE PHOSPHATASE 165 U/L (45-117); BILIRUBIN,TOTAL 0.3 mg/dL (0.2-1.0); CALCIUM 8.7 mg/dL (8.5-10.1); CREATININE 5.24 mg/dL (0.55-1.02)
[2020-11-05 06:48] VITALS: BP 112/68
[2020-11-05] MEDS: SEVELAMER CARBONATE 800MG TAB PO SCH ×3 (07:42→16:36)
[2020-11-05] MEDS: HEPARIN 5,000 UNITS/ML, 1ML SQ SCH ×2 (07:42→15:27)
[2020-11-05] MEDS: POLYETHYLENE GLYCOL 17 GM PACKET PO SCH (08:21)
[2020-11-05] MEDS: BUPROPION 100 MG TABLET PO SCH ×2 (08:21→20:59)
[2020-11-05] MEDS: DOCUSATE 100 MG CAPSULE PO SCH ×2 (08:21→21:00)
[2020-11-05] MEDS: SODIUM ZIRCONIUM CYCLOSILICATE 10 GM PO SCH (08:21)
[2020-11-05] MEDS: FAMOTIDINE 20 MG TABLET PO SCH (08:22)
[2020-11-05] MEDS: SODIUM CHLORIDE FLUSH 10ML SYR IVF SCH ×2 (08:22→20:59)
[2020-11-05] MEDS: LEVETIRACETAM 500 MG TABLET PO SCH ×2 (08:23→20:59)
[2020-11-05] MEDS: ACETAMINOPHEN 325 MG TABLET PO PRN ×2 (09:42→20:59)
[2020-11-05] MEDS: LORazepam 2 MG/ML, 1ML IVPush PRN (10:24)
[2020-11-05 12:42] VITALS: BP 138/85
[2020-11-05] MEDS ORDERED: INSULIN LISPRO 100 UNIT/ML, 3ML VIAL SQ-INSULIN ONE (17:30)
[2020-11-05 19:24] VITALS: BP 137/82
[2020-11-06 00:11] VITALS: BP 109/79
[2020-11-06] MEDS: HEPARIN 5,000 UNITS/ML, 1ML SQ SCH ×4 (01:18→17:37)
[2020-11-06] MEDS: ACETAMINOPHEN 325 MG TABLET PO PRN ×3 (02:41→18:17)
[2020-11-06] MEDS: MELATONIN 5 MG TABLET PO PRN (02:41)
[2020-11-06] MEDS: INSULIN LISPRO 100 UNITS/ML, PEN SQ-INSULIN SCH ×4 (02:48→18:37)
[2020-11-06] MEDS: CARVEDILOL 3.125 MG TABLET PO SCH ×2 (06:07→17:33)
[2020-11-06] MEDS: LEVOTHYROXINE 100 MCG TABLET PO SCH (06:08)
[2020-11-06] MEDS: HYDROCORTISONE 5 MG TABLET PO SCH ×2 (06:08→12:01)
[2020-11-06 06:31] VITALS: BP 178/98
[2020-11-06] MEDS: hydrALAzine 20 MG/ML, 1ML IV PRN (06:48)
[2020-11-06] MEDS: POLYETHYLENE GLYCOL 17 GM PACKET PO SCH (08:33)
[2020-11-06] MEDS: BUPROPION 100 MG TABLET PO SCH ×2 (08:33→21:02)
[2020-11-06] MEDS: SODIUM ZIRCONIUM CYCLOSILICATE 10 GM PO SCH (08:33)
[2020-11-06] MEDS: SEVELAMER CARBONATE 800MG TAB PO SCH ×3 (08:33→17:32)
[2020-11-06] MEDS: LEVETIRACETAM 500 MG TABLET PO SCH ×2 (08:33→21:02)
[2020-11-06] MEDS: DOCUSATE 100 MG CAPSULE PO SCH ×2 (08:33→21:02)
[2020-11-06] MEDS: FAMOTIDINE 20 MG TABLET PO SCH (08:33)
[2020-11-06] MEDS: SODIUM CHLORIDE FLUSH 10ML SYR IVF SCH ×2 (08:34→21:03)
[2020-11-06] MEDS: LORazepam 2 MG/ML, 1ML IVPush PRN (12:37)
[2020-11-06 13:09] VITALS: BP 145/96
[2020-11-06] MEDS: DARBEPOETIN 60 MCG/ML SQ SCH (13:18)
[2020-11-06] MEDS: DIPHENHYDRAMINE/ZINC CRM 2%, 30GM TP PRN (15:17)
[2020-11-06 17:42] VITALS: BP 138/84
[2020-11-06 18:59] VITALS: BP 132/88
[2020-11-07] MEDS: HEPARIN 5,000 UNITS/ML, 1ML SQ SCH ×3 (01:08→15:54)
[2020-11-07 01:36] VITALS: BP 128/82
[2020-11-07] MEDS: ACETAMINOPHEN 325 MG TABLET PO PRN (03:08)
[2020-11-07] MEDS: ONDANSETRON 2MG/ML, 2ML IVPush PRN (03:08)
[2020-11-07] MEDS: INSULIN LISPRO 100 UNITS/ML, PEN SQ-INSULIN SCH ×4 (03:09→21:35)
[2020-11-07] MEDS: HYDROCORTISONE 5 MG TABLET PO SCH ×2 (06:15→12:00)
[2020-11-07] MEDS: LEVOTHYROXINE 100 MCG TABLET PO SCH (06:15)
[2020-11-07 06:52] VITALS: BP 121/81
[2020-11-07] MEDS: DOCUSATE 100 MG CAPSULE PO SCH ×2 (08:27→21:34)
[2020-11-07] MEDS: LEVETIRACETAM 500 MG TABLET PO SCH ×2 (08:28→21:34)
[2020-11-07] MEDS: FAMOTIDINE 20 MG TABLET PO SCH (08:28)
[2020-11-07] MEDS: SEVELAMER CARBONATE 800MG TAB PO SCH ×3 (08:28→17:00)
[2020-11-07] MEDS: BUPROPION 100 MG TABLET PO SCH ×2 (08:28→21:34)
[2020-11-07] MEDS: SODIUM ZIRCONIUM CYCLOSILICATE 10 GM PO SCH (08:28)
[2020-11-07] MEDS: SODIUM CHLORIDE FLUSH 10ML SYR IVF SCH ×2 (08:29→21:35)
[2020-11-07] MEDS: POLYETHYLENE GLYCOL 17 GM PACKET PO SCH (09:00)
[2020-11-07 14:12] VITALS: BP 136/80
[2020-11-07] MEDS: HYDROcodone/APAP 5/325 TABLET PO PRN (15:15)
[2020-11-07] MEDS: LORazepam 2 MG/ML, 1ML IVPush PRN (15:54)
[2020-11-07] MEDS: CARVEDILOL 6.25 MG TABLET PO SCH (17:20)
[2020-11-07 19:47] VITALS: BP 128/74
[2020-11-08] MEDS: HEPARIN 5,000 UNITS/ML, 1ML SQ SCH ×3 (01:04→17:16)
[2020-11-08 01:21] VITALS: BP 123/68
[2020-11-08] MEDS: INSULIN LISPRO 100 UNITS/ML, PEN SQ-INSULIN SCH ×4 (03:15→20:52)
[2020-11-08 05:02] LABS: ANION GAP 8 mmol/L (5-15); CALCIUM 8.7 mg/dL (8.5-10.1); CHLORIDE 101 mmol/L (98-107); CREATININE 5.68 mg/dL (0.55-1.02)
[2020-11-08 05:30] VITALS: BP 153/93
[2020-11-08] MEDS: HYDROCORTISONE 5 MG TABLET PO SCH ×2 (05:31→13:36)
[2020-11-08] MEDS: LEVOTHYROXINE 100 MCG TABLET PO SCH (05:31)
[2020-11-08] MEDS: CARVEDILOL 3.125 MG TABLET PO SCH ×2 (05:31→18:19)
[2020-11-08 06:27] VITALS: BP 128/88
[2020-11-08] MEDS: DOCUSATE 100 MG CAPSULE PO SCH ×2 (08:44→20:41)
[2020-11-08] MEDS: SEVELAMER CARBONATE 800MG TAB PO SCH ×3 (08:44→17:15)
[2020-11-08] MEDS: FAMOTIDINE 20 MG TABLET PO SCH (08:44)
[2020-11-08] MEDS: LEVETIRACETAM 500 MG TABLET PO SCH ×2 (08:44→20:41)
[2020-11-08] MEDS: BUPROPION 100 MG TABLET PO SCH ×2 (08:44→20:41)
[2020-11-08] MEDS: SODIUM CHLORIDE FLUSH 10ML SYR IVF SCH ×2 (08:53→20:41)
[2020-11-08] MEDS: POLYETHYLENE GLYCOL 17 GM PACKET PO SCH (09:04)
[2020-11-08] MEDS: ACETAMINOPHEN 325 MG TABLET PO PRN ×2 (09:15→13:42)
[2020-11-08] MEDS: SODIUM ZIRCONIUM CYCLOSILICATE 10 GM PO SCH (11:08)
[2020-11-08] MEDS: LORazepam 2 MG/ML, 1ML IVPush PRN ×2 (11:16→22:12)
[2020-11-08 11:35] VITALS: BP 154/83
[2020-11-08] MEDS: ONDANSETRON 2MG/ML, 2ML IVPush PRN (12:12)
[2020-11-08 17:20] VITALS: BP 128/48
[2020-11-08] MEDS ORDERED: INSULIN LISPRO 100 UNITS/ML, PEN SQ-INSULIN ONE (17:30)
[2020-11-08 19:03] VITALS: BP 117/63
[2020-11-09] MEDS: HYDROcodone/APAP 5/325 TABLET PO PRN ×3 (00:01→18:14)
[2020-11-09 00:09] VITALS: BP 128/59
[2020-11-09] MEDS: HEPARIN 5,000 UNITS/ML, 1ML SQ SCH ×4 (01:24→17:00)
[2020-11-09] MEDS: INSULIN LISPRO 100 UNITS/ML, PEN SQ-INSULIN SCH ×4 (03:06→20:42)
[2020-11-09] MEDS: HYDROCORTISONE 5 MG TABLET PO SCH ×2 (05:19→13:06)
[2020-11-09] MEDS: LEVOTHYROXINE 100 MCG TABLET PO SCH (05:20)
[2020-11-09 08:06] VITALS: BP 133/85
[2020-11-09] MEDS: FAMOTIDINE 20 MG TABLET PO SCH (08:08)
[2020-11-09] MEDS: DOCUSATE 100 MG CAPSULE PO SCH ×2 (08:08→20:40)
[2020-11-09] MEDS: BUPROPION 100 MG TABLET PO SCH ×2 (08:08→20:41)
[2020-11-09] MEDS: SEVELAMER CARBONATE 800MG TAB PO SCH ×3 (08:09→18:13)
[2020-11-09] MEDS: LEVETIRACETAM 500 MG TABLET PO SCH ×2 (08:10→20:40)
[2020-11-09] MEDS: SODIUM CHLORIDE FLUSH 10ML SYR IVF SCH ×2 (08:10→20:40)
[2020-11-09] MEDS: POLYETHYLENE GLYCOL 17 GM PACKET PO SCH (08:10)
[2020-11-09] MEDS: SODIUM ZIRCONIUM CYCLOSILICATE 10 GM PO SCH (09:00)
[2020-11-09] MEDS: LORazepam 2 MG/ML, 1ML IVPush PRN (11:05)
[2020-11-09 13:40] VITALS: BP 133/77
[2020-11-09] MEDS: CARVEDILOL 6.25 MG TABLET PO SCH (18:00)
[2020-11-09] MEDS: CARVEDILOL 3.125 MG TABLET PO SCH (18:16)
[2020-11-09 18:52] VITALS: BP 142/67
[2020-11-09] MEDS ORDERED: HYDROcodone/APAP 5/325 TABLET PO ONE (22:00)
[2020-11-10] MEDS: HEPARIN 5,000 UNITS/ML, 1ML SQ SCH ×3 (01:20→16:51)
[2020-11-10 01:39] VITALS: BP 134/62
[2020-11-10] MEDS ORDERED: INSULIN LISPRO 100 UNIT/ML, 3ML VIAL SQ-INSULIN ONE (03:00)
[2020-11-10] MEDS: ACETAMINOPHEN 325 MG TABLET PO PRN ×3 (05:52→14:33)
[2020-11-10] MEDS: HYDROCORTISONE 5 MG TABLET PO SCH ×2 (05:53→12:20)
[2020-11-10] MEDS: LEVOTHYROXINE 100 MCG TABLET PO SCH (05:53)
[2020-11-10 07:13] VITALS: BP 129/64
[2020-11-10] MEDS: INSULIN LISPRO 100 UNITS/ML, PEN SQ-INSULIN SCH ×6 (07:50→22:07)
[2020-11-10] MEDS: SEVELAMER CARBONATE 800MG TAB PO SCH ×3 (08:24→16:50)
[2020-11-10] MEDS: DOCUSATE 100 MG CAPSULE PO SCH ×2 (09:29→22:06)
[2020-11-10] MEDS: LEVETIRACETAM 500 MG TABLET PO SCH ×2 (09:29→22:06)
[2020-11-10] MEDS: BUPROPION 100 MG TABLET PO SCH ×2 (09:29→22:06)
[2020-11-10] MEDS: FAMOTIDINE 20 MG TABLET PO SCH (09:29)
[2020-11-10] MEDS: POLYETHYLENE GLYCOL 17 GM PACKET PO SCH (09:30)
[2020-11-10] MEDS: SODIUM CHLORIDE FLUSH 10ML SYR IVF SCH ×2 (09:36→22:06)
[2020-11-10] MEDS: SODIUM ZIRCONIUM CYCLOSILICATE 10 GM PO SCH (10:57)
[2020-11-10] MEDS: ONDANSETRON 2MG/ML, 2ML IVPush PRN (12:46)
[2020-11-10 13:19] VITALS: BP 132/67
[2020-11-10] MEDS: CARVEDILOL 3.125 MG TABLET PO SCH (17:14)
[2020-11-10 19:47] VITALS: BP 154/69
[2020-11-10] MEDS: MELATONIN 5 MG TABLET PO PRN (22:11)
[2020-11-11 00:40] VITALS: BP 142/70
[2020-11-11] MEDS: HEPARIN 5,000 UNITS/ML, 1ML SQ SCH ×3 (01:00→16:29)
[2020-11-11] MEDS: LEVOTHYROXINE 100 MCG TABLET PO SCH (05:46)
[2020-11-11] MEDS: HYDROCORTISONE 5 MG TABLET PO SCH ×2 (05:49→11:38)
[2020-11-11 05:55] LABS: BASOPHILS % (AUTO) 1 % (0-1); EOSINOPHILS % (AUTO) 9 % (1-7); LYMPHOCYTES % (AUTO) 25 % (22-44); MEAN CORPUSCULAR HEMOGLOBIN 28.7 pg (27.0-34.8); MEAN CORPUSCULAR HGB CONC 32.5 g/dL (32.4-35.8); MEAN PLATELET VOLUME 9.6 fL (7.4-10.4); MONOCYTES % (AUTO) 14 % (2-9); NEUTROPHILS % (AUTO) 51 % (42-75); PLATELET COUNT 214 x10^3/uL (130-400); RED BLOOD COUNT 3.07 x10^6/uL (3.82-5.3)
[2020-11-11 06:06] LABS: ANION GAP 10 mmol/L (5-15); CALCIUM 8.7 mg/dL (8.5-10.1); CHLORIDE 99 mmol/L (98-107); CREATININE 6.71 mg/dL (0.55-1.02)
[2020-11-11 07:25] VITALS: BP 138/67
[2020-11-11] MEDS: SEVELAMER CARBONATE 800MG TAB PO SCH ×3 (08:04→22:40)
[2020-11-11] MEDS: BUPROPION 100 MG TABLET PO SCH ×2 (08:04→21:45)
[2020-11-11] MEDS: INSULIN LISPRO 100 UNITS/ML, PEN SQ-INSULIN SCH ×6 (08:04→21:00)
[2020-11-11] MEDS: DOCUSATE 100 MG CAPSULE PO SCH ×2 (08:05→21:45)
[2020-11-11] MEDS: POLYETHYLENE GLYCOL 17 GM PACKET PO SCH (08:05)
[2020-11-11] MEDS: LEVETIRACETAM 500 MG TABLET PO SCH ×2 (08:05→21:45)
[2020-11-11] MEDS: FAMOTIDINE 20 MG TABLET PO SCH (08:05)
[2020-11-11] MEDS: SODIUM CHLORIDE FLUSH 10ML SYR IVF SCH ×2 (08:06→21:00)
[2020-11-11] MEDS: ERGOCALCIFEROL 50,000 UNIT CAPSULE PO SCH (09:45)
[2020-11-11] MEDS: SODIUM ZIRCONIUM CYCLOSILICATE 10 GM PO SCH (10:05)
[2020-11-11] MEDS: HYDROcodone/APAP 5/325 TABLET PO PRN ×2 (11:39→21:45)
[2020-11-11 13:04] VITALS: BP 134/69
[2020-11-11] MEDS: LORazepam 2 MG/ML, 1ML IVPush PRN (14:59)
[2020-11-11] MEDS: ACETAMINOPHEN 325 MG TABLET PO PRN (14:59)
[2020-11-11] MEDS: CARVEDILOL 6.25 MG TABLET PO SCH (18:00)
[2020-11-11 21:48] VITALS: BP 115/53
[2020-11-11] MEDS: MELATONIN 5 MG TABLET PO PRN (22:47)
[2020-11-12] MEDS: HEPARIN 5,000 UNITS/ML, 1ML SQ SCH ×3 (00:42→17:04)
[2020-11-12 01:24] VITALS: BP 124/70
[2020-11-12] MEDS: HYDROcodone/APAP 5/325 TABLET PO PRN (05:32)
[2020-11-12] MEDS: HYDROCORTISONE 5 MG TABLET PO SCH ×2 (05:32→11:42)
[2020-11-12] MEDS: CARVEDILOL 3.125 MG TABLET PO SCH ×2 (05:32→17:04)
[2020-11-12] MEDS: LEVOTHYROXINE 100 MCG TABLET PO SCH (05:32)
[2020-11-12 06:17] LABS: CHLORIDE 101 mmol/L (98-107)
[2020-11-12 06:33] LABS: ANION GAP 12 mmol/L (5-15); CALCIUM 8.7 mg/dL (8.5-10.1); CREATININE 4.65 mg/dL (0.55-1.02)
[2020-11-12 07:06] VITALS: BP 136/63
[2020-11-12] MEDS: INSULIN LISPRO 100 UNITS/ML, PEN SQ-INSULIN SCH ×6 (07:26→21:11)
[2020-11-12] MEDS: POLYETHYLENE GLYCOL 17 GM PACKET PO SCH ×2 (09:00→09:12)
[2020-11-12] MEDS: FAMOTIDINE 20 MG TABLET PO SCH (09:12)
[2020-11-12] MEDS: BUPROPION 100 MG TABLET PO SCH ×2 (09:12→21:11)
[2020-11-12] MEDS: SEVELAMER CARBONATE 800MG TAB PO SCH ×3 (09:12→17:04)
[2020-11-12] MEDS: LEVETIRACETAM 500 MG TABLET PO SCH ×2 (09:12→21:11)
[2020-11-12] MEDS: DOCUSATE 100 MG CAPSULE PO SCH ×2 (09:12→21:10)
[2020-11-12] MEDS: SODIUM CHLORIDE FLUSH 10ML SYR IVF SCH ×2 (09:13→20:24)
[2020-11-12] MEDS: SODIUM ZIRCONIUM CYCLOSILICATE 10 GM PO SCH (11:08)
[2020-11-12] MEDS: ACETAMINOPHEN 325 MG TABLET PO PRN ×3 (11:33→23:30)
[2020-11-12 12:04] VITALS: BP 124/50
[2020-11-12] MEDS: DIPHENHYDRAMINE/ZINC CRM 2%, 30GM TP PRN (13:03)
[2020-11-12 19:25] VITALS: BP 115/59
[2020-11-13 00:43] VITALS: BP 121/60
[2020-11-13] MEDS: HEPARIN 5,000 UNITS/ML, 1ML SQ SCH ×3 (01:08→17:39)
[2020-11-13 05:08] VITALS: BP 169/88
[2020-11-13] MEDS: LEVOTHYROXINE 100 MCG TABLET PO SCH (05:10)
[2020-11-13] MEDS: HYDROCORTISONE 5 MG TABLET PO SCH ×2 (05:10→11:47)
[2020-11-13 05:11] LABS: CHLORIDE 99 mmol/L (98-107)
[2020-11-13] MEDS: CARVEDILOL 3.125 MG TABLET PO SCH ×2 (05:11→17:54)
[2020-11-13 05:16] LABS: ANION GAP 11 mmol/L (5-15); CALCIUM 8.9 mg/dL (8.5-10.1)
[2020-11-13 06:59] VITALS: BP 116/67
[2020-11-13] MEDS: DOCUSATE 100 MG CAPSULE PO SCH ×2 (08:01→20:30)
[2020-11-13] MEDS: FAMOTIDINE 20 MG TABLET PO SCH (08:01)
[2020-11-13] MEDS: SEVELAMER CARBONATE 800MG TAB PO SCH ×3 (08:01→17:37)
[2020-11-13] MEDS: POLYETHYLENE GLYCOL 17 GM PACKET PO SCH (08:01)
[2020-11-13] MEDS: LEVETIRACETAM 500 MG TABLET PO SCH ×2 (08:01→20:30)
[2020-11-13] MEDS: BUPROPION 100 MG TABLET PO SCH ×2 (08:01→20:30)
[2020-11-13] MEDS: INSULIN LISPRO 100 UNITS/ML, PEN SQ-INSULIN SCH ×6 (08:03→20:31)
[2020-11-13] MEDS: SODIUM CHLORIDE FLUSH 10ML SYR IVF SCH ×2 (08:25→20:31)
[2020-11-13] MEDS: SODIUM ZIRCONIUM CYCLOSILICATE 10 GM PO SCH (10:00)
[2020-11-13] MEDS: HYDROcodone/APAP 5/325 TABLET PO PRN (11:47)
[2020-11-13] MEDS: DARBEPOETIN 60 MCG/ML SQ SCH (11:48)
[2020-11-13 12:14] VITALS: BP 175/83
[2020-11-13] MEDS: ONDANSETRON 2MG/ML, 2ML IVPush PRN (15:22)
[2020-11-13] MEDS: CARVEDILOL 6.25 MG TABLET PO SCH (17:38)
[2020-11-13 19:54] VITALS: BP 161/76
[2020-11-13] MEDS: ACETAMINOPHEN 325 MG TABLET PO PRN (20:30)
[2020-11-14] MEDS: HEPARIN 5,000 UNITS/ML, 1ML SQ SCH ×3 (01:43→19:38)
[2020-11-14 02:00] VITALS: BP 154/72
[2020-11-14] MEDS: LEVOTHYROXINE 100 MCG TABLET PO SCH (05:43)
[2020-11-14] MEDS: HYDROCORTISONE 5 MG TABLET PO SCH ×2 (05:43→12:50)
[2020-11-14] MEDS: INSULIN LISPRO 100 UNITS/ML, PEN SQ-INSULIN SCH ×6 (07:20→20:03)
[2020-11-14 07:42] VITALS: BP 183/86
[2020-11-14] MEDS: POLYETHYLENE GLYCOL 17 GM PACKET PO SCH (10:50)
[2020-11-14] MEDS: SODIUM ZIRCONIUM CYCLOSILICATE 10 GM PO SCH (10:50)
[2020-11-14] MEDS: DOCUSATE 100 MG CAPSULE PO SCH ×2 (10:51→19:55)
[2020-11-14] MEDS: SEVELAMER CARBONATE 800MG TAB PO SCH ×3 (10:51→20:03)
[2020-11-14] MEDS: FAMOTIDINE 20 MG TABLET PO SCH (10:51)
[2020-11-14] MEDS: LEVETIRACETAM 500 MG TABLET PO SCH ×2 (10:51→20:03)
[2020-11-14] MEDS: BUPROPION 100 MG TABLET PO SCH ×2 (10:51→20:03)
[2020-11-14] MEDS: SODIUM CHLORIDE FLUSH 10ML SYR IVF SCH ×2 (10:55→20:03)
[2020-11-14 11:30] VITALS: BP 187/81
[2020-11-14] MEDS: HYDROcodone/APAP 5/325 TABLET PO PRN ×2 (19:27→19:29)
[2020-11-14] MEDS: CARVEDILOL 6.25 MG TABLET PO SCH (19:38)
[2020-11-14 20:30] VITALS: BP 164/76
[2020-11-15] MEDS: ACETAMINOPHEN 325 MG TABLET PO PRN (00:09)
[2020-11-15 02:00] VITALS: BP 158/72
[2020-11-15] MEDS: HEPARIN 5,000 UNITS/ML, 1ML SQ SCH ×4 (03:30→21:41)
[2020-11-15] MEDS: LEVOTHYROXINE 100 MCG TABLET PO SCH (05:46)
[2020-11-15] MEDS: HYDROCORTISONE 5 MG TABLET PO SCH ×2 (05:46→12:19)
[2020-11-15] MEDS: CARVEDILOL 3.125 MG TABLET PO SCH ×2 (05:48→18:16)
[2020-11-15 07:15] VITALS: BP 139/43
[2020-11-15] MEDS: BUPROPION 100 MG TABLET PO SCH ×2 (07:55→20:12)
[2020-11-15] MEDS: FAMOTIDINE 20 MG TABLET PO SCH (07:55)
[2020-11-15] MEDS: DOCUSATE 100 MG CAPSULE PO SCH ×2 (07:55→20:12)
[2020-11-15] MEDS: LEVETIRACETAM 500 MG TABLET PO SCH ×2 (07:55→20:12)
[2020-11-15] MEDS: POLYETHYLENE GLYCOL 17 GM PACKET PO SCH (07:56)
[2020-11-15] MEDS: SODIUM ZIRCONIUM CYCLOSILICATE 10 GM PO SCH (07:56)
[2020-11-15] MEDS: SEVELAMER CARBONATE 800MG TAB PO SCH ×3 (07:56→17:21)
[2020-11-15] MEDS: SODIUM CHLORIDE FLUSH 10ML SYR IVF SCH ×2 (07:57→20:12)
[2020-11-15] MEDS: INSULIN LISPRO 100 UNITS/ML, PEN SQ-INSULIN SCH ×3 (07:57→21:00)
[2020-11-15] MEDS: HYDROcodone/APAP 5/325 TABLET PO PRN ×3 (08:16→21:40)
[2020-11-15 12:41] VITALS: BP 132/45
[2020-11-15] MEDS ORDERED: INSULIN LISPRO 100 UNITS/ML, PEN SQ-INSULIN SCH (16:00)
[2020-11-15] MEDS ORDERED: INSULIN LISPRO 100 UNITS/ML, PEN SQ-INSULIN ONE (17:30)
[2020-11-15 18:17] VITALS: BP 162/78
[2020-11-15 19:30] VITALS: BP 169/93
[2020-11-16 01:12] VITALS: BP 151/81
[2020-11-16] MEDS: HEPARIN 5,000 UNITS/ML, 1ML SQ SCH ×3 (04:01→21:45)
[2020-11-16] MEDS: HYDROcodone/APAP 5/325 TABLET PO PRN ×3 (04:01→21:45)
[2020-11-16] MEDS: LEVOTHYROXINE 100 MCG TABLET PO SCH (06:00)
[2020-11-16] MEDS: HYDROCORTISONE 5 MG TABLET PO SCH ×2 (06:02→13:16)
[2020-11-16 07:38] VITALS: BP 179/123
[2020-11-16] MEDS: FAMOTIDINE 20 MG TABLET PO SCH (07:59)
[2020-11-16] MEDS: LEVETIRACETAM 500 MG TABLET PO SCH ×2 (07:59→21:45)
[2020-11-16] MEDS: BUPROPION 100 MG TABLET PO SCH ×2 (07:59→21:45)
[2020-11-16] MEDS: SODIUM CHLORIDE FLUSH 10ML SYR IVF SCH ×2 (08:00→21:46)
[2020-11-16] MEDS: SEVELAMER CARBONATE 800MG TAB PO SCH ×3 (08:00→17:11)
[2020-11-16] MEDS: LORazepam 0.5MG TABLET PO PRN (08:23)
[2020-11-16] MEDS: INSULIN LISPRO 100 UNITS/ML, PEN SQ-INSULIN SCH ×4 (08:25→21:46)
[2020-11-16 13:05] VITALS: BP 189/46
[2020-11-16] MEDS: POLYETHYLENE GLYCOL 17 GM PACKET PO SCH (13:16)
[2020-11-16] MEDS: DOCUSATE 100 MG CAPSULE PO SCH ×2 (13:16→21:45)
[2020-11-16] MEDS: SODIUM ZIRCONIUM CYCLOSILICATE 10 GM PO SCH (15:34)
[2020-11-16 16:58] VITALS: BP 154/77
[2020-11-16] MEDS: CARVEDILOL 6.25 MG TABLET PO SCH (17:11)
[2020-11-16 18:59] VITALS: BP 108/57
[2020-11-17 01:03] VITALS: BP 128/72
[2020-11-17] MEDS: MELATONIN 5 MG TABLET PO PRN ×2 (01:37→21:33)
[2020-11-17] MEDS: HYDROCORTISONE 5 MG TABLET PO SCH ×2 (05:32→12:30)
[2020-11-17] MEDS: LEVOTHYROXINE 100 MCG TABLET PO SCH (05:32)
[2020-11-17] MEDS: HEPARIN 5,000 UNITS/ML, 1ML SQ SCH ×4 (05:33→20:15)
[2020-11-17] MEDS: CARVEDILOL 3.125 MG TABLET PO SCH ×2 (05:36→17:23)
[2020-11-17] MEDS: ACETAMINOPHEN 325 MG TABLET PO PRN ×2 (05:36→11:08)
[2020-11-17 07:46] VITALS: BP 135/78
[2020-11-17] MEDS: INSULIN LISPRO 100 UNITS/ML, PEN SQ-INSULIN SCH ×4 (08:36→20:16)
[2020-11-17] MEDS: FAMOTIDINE 20 MG TABLET PO SCH (09:11)
[2020-11-17] MEDS: DOCUSATE 100 MG CAPSULE PO SCH ×2 (09:11→20:14)
[2020-11-17] MEDS: BUPROPION 100 MG TABLET PO SCH ×2 (09:11→20:14)
[2020-11-17] MEDS: POLYETHYLENE GLYCOL 17 GM PACKET PO SCH (09:11)
[2020-11-17] MEDS: SEVELAMER CARBONATE 800MG TAB PO SCH ×3 (09:12→17:23)
[2020-11-17] MEDS: SODIUM CHLORIDE FLUSH 10ML SYR IVF SCH ×2 (09:12→20:24)
[2020-11-17] MEDS: LEVETIRACETAM 500 MG TABLET PO SCH ×2 (09:12→20:14)
[2020-11-17] MEDS: SODIUM ZIRCONIUM CYCLOSILICATE 10 GM PO SCH (11:08)
[2020-11-17 12:30] VITALS: BP 119/57
[2020-11-17] MEDS ORDERED: BISACODYL 10 MG SUPP PR PRN (13:30)
[2020-11-17 14:59] VITALS: BP 118/79
[2020-11-17 19:22] VITALS: BP 93/75
[2020-11-17] MEDS: HYDROcodone/APAP 5/325 TABLET PO PRN (20:14)
[2020-11-18 00:50] VITALS: BP 135/82
[2020-11-18] MEDS: HYDROcodone/APAP 5/325 TABLET PO PRN ×2 (02:33→21:11)
[2020-11-18] MEDS: HYDROCORTISONE 5 MG TABLET PO SCH ×2 (05:39→15:14)
[2020-11-18] MEDS: LEVOTHYROXINE 100 MCG TABLET PO SCH (05:40)
[2020-11-18] MEDS: HEPARIN 5,000 UNITS/ML, 1ML SQ SCH ×3 (05:45→23:03)
[2020-11-18 06:57] VITALS: BP 109/69
[2020-11-18] MEDS: INSULIN LISPRO 100 UNITS/ML, PEN SQ-INSULIN SCH ×4 (07:00→21:13)
[2020-11-18] MEDS: SEVELAMER CARBONATE 800MG TAB PO SCH ×3 (07:52→17:14)
[2020-11-18] MEDS: SODIUM ZIRCONIUM CYCLOSILICATE 10 GM PO SCH (07:53)
[2020-11-18 08:06] VITALS: BP 159/103
[2020-11-18] MEDS ORDERED: DARBEPOETIN 100 MCG/ML SQ SCH (08:30)
[2020-11-18 08:48] LABS: BASOPHILS % (AUTO) 1 % (0-1); EOSINOPHILS % (AUTO) 9 % (1-7); LYMPHOCYTES % (AUTO) 20 % (22-44); MEAN CORPUSCULAR HEMOGLOBIN 28.8 pg (27.0-34.8); MEAN CORPUSCULAR HGB CONC 32.5 g/dL (32.4-35.8); MEAN PLATELET VOLUME 9.6 fL (7.4-10.4); MONOCYTES % (AUTO) 11 % (2-9); NEUTROPHILS % (AUTO) 60 % (42-75); PLATELET COUNT 258 x10^3/uL (130-400); RED BLOOD COUNT 3.14 x10^6/uL (3.82-5.3); RED CELL DISTRIBUTION WIDTH 15.8 % (9.6-15.2)
[2020-11-18] MEDS: SODIUM CHLORIDE FLUSH 10ML SYR IVF SCH ×2 (09:00→20:39)
[2020-11-18] MEDS: POLYETHYLENE GLYCOL 17 GM PACKET PO SCH (09:00)
[2020-11-18] MEDS: BUPROPION 100 MG TABLET PO SCH ×2 (09:56→21:12)
[2020-11-18] MEDS: DOCUSATE 100 MG CAPSULE PO SCH ×2 (09:56→21:12)
[2020-11-18] MEDS: LEVETIRACETAM 500 MG TABLET PO SCH ×2 (09:56→21:12)
[2020-11-18] MEDS: FAMOTIDINE 20 MG TABLET PO SCH (09:57)
[2020-11-18] MEDS: LORazepam 0.5MG TABLET PO PRN (09:57)
[2020-11-18] MEDS: ERGOCALCIFEROL 50,000 UNIT CAPSULE PO SCH (10:00)
[2020-11-18] MEDS: DARBEPOETIN 100 MCG/ML SQ SCH (10:46)
[2020-11-18] MEDS: DARBEPOETIN 60 MCG/ML SQ SCH (10:46)
[2020-11-18] MEDS: IRON SUCROSE COMPLEX 100MG/5ML IV SCH (11:05)
[2020-11-18 14:44] VITALS: BP 106/85
[2020-11-18] MEDS: CARVEDILOL 6.25 MG TABLET PO SCH (17:20)
[2020-11-18 19:07] VITALS: BP 142/84
[2020-11-18] MEDS: MELATONIN 5 MG TABLET PO PRN (21:11)
[2020-11-19 00:40] VITALS: BP 129/90
[2020-11-19 05:36] VITALS: BP 171/112
[2020-11-19] MEDS: HYDROCORTISONE 5 MG TABLET PO SCH ×2 (05:42→11:13)
[2020-11-19] MEDS: LEVOTHYROXINE 100 MCG TABLET PO SCH (05:42)
[2020-11-19] MEDS: CARVEDILOL 3.125 MG TABLET PO SCH ×2 (05:43→16:51)
[2020-11-19 06:13] VITALS: BP 166/107
[2020-11-19] MEDS: HEPARIN 5,000 UNITS/ML, 1ML SQ SCH ×3 (07:21→22:14)
[2020-11-19] MEDS: INSULIN LISPRO 100 UNITS/ML, PEN SQ-INSULIN SCH ×4 (07:41→20:30)
[2020-11-19] MEDS ORDERED: INSULIN REGULAR 100 UNITS/ML, 3ML VIAL SQ-INSULIN ONE (08:00)
[2020-11-19] MEDS: POLYETHYLENE GLYCOL 17 GM PACKET PO SCH (09:00)
[2020-11-19] MEDS: SODIUM CHLORIDE FLUSH 10ML SYR IVF SCH ×2 (09:00→20:29)
[2020-11-19] MEDS ORDERED: BISACODYL 10 MG SUPP PR ONE (09:00)
[2020-11-19] MEDS: LEVETIRACETAM 500 MG TABLET PO SCH ×2 (09:17→20:29)
[2020-11-19] MEDS: FAMOTIDINE 20 MG TABLET PO SCH (09:17)
[2020-11-19] MEDS: BUPROPION 100 MG TABLET PO SCH ×2 (09:17→20:29)
[2020-11-19] MEDS: SEVELAMER CARBONATE 800MG TAB PO SCH ×3 (09:17→16:51)
[2020-11-19] MEDS: DOCUSATE 100 MG CAPSULE PO SCH ×2 (09:17→20:28)
[2020-11-19 09:21] LABS: ANION GAP 13 mmol/L (5-15); CALCIUM 8.6 mg/dL (8.5-10.1); CHLORIDE 97 mmol/L (98-107); CREATININE 5.81 mg/dL (0.55-1.02)
[2020-11-19 09:27] LABS: BASOPHILS % (AUTO) 1 % (0-1); EOSINOPHILS % (AUTO) 6 % (1-7); LYMPHOCYTES % (AUTO) 18 % (22-44); MEAN CORPUSCULAR HEMOGLOBIN 28.8 pg (27.0-34.8); MEAN CORPUSCULAR HGB CONC 32.1 g/dL (32.4-35.8); MEAN PLATELET VOLUME 9.9 fL (7.4-10.4); MONOCYTES % (AUTO) 13 % (2-9); NEUTROPHILS % (AUTO) 62 % (42-75); PLATELET COUNT 235 x10^3/uL (130-400); RED BLOOD COUNT 2.92 x10^6/uL (3.82-5.3); RED CELL DISTRIBUTION WIDTH 16.1 % (9.6-15.2)
[2020-11-19] MEDS ORDERED: INSULIN LISPRO 100 UNITS/ML, PEN SQ-INSULIN ONE (09:30)
[2020-11-19] MEDS: SODIUM ZIRCONIUM CYCLOSILICATE 10 GM PO SCH (10:50)
[2020-11-19] MEDS ORDERED: AMLODIPINE 5 MG TABLET PO ONE (11:00)
[2020-11-19] MEDS: ONDANSETRON ODT 4 MG PO PRN (12:26)
[2020-11-19] MEDS: HYDROcodone/APAP 5/325 TABLET PO PRN ×2 (12:26→20:28)
[2020-11-19 14:06] VITALS: BP 108/72
[2020-11-19 19:27] VITALS: BP 97/64
[2020-11-19] MEDS: MELATONIN 5 MG TABLET PO PRN (22:14)
[2020-11-20 01:01] VITALS: BP 133/81
[2020-11-20] MEDS: HYDROcodone/APAP 5/325 TABLET PO PRN ×3 (04:00→20:34)
[2020-11-20] MEDS: LEVOTHYROXINE 100 MCG TABLET PO SCH (05:59)
[2020-11-20] MEDS: HYDROCORTISONE 5 MG TABLET PO SCH ×2 (05:59→11:17)
[2020-11-20] MEDS: CARVEDILOL 3.125 MG TABLET PO SCH ×2 (05:59→18:16)
[2020-11-20] MEDS: HEPARIN 5,000 UNITS/ML, 1ML SQ SCH ×3 (06:03→23:15)
[2020-11-20 07:22] VITALS: BP 145/77
[2020-11-20] MEDS: INSULIN LISPRO 100 UNITS/ML, PEN SQ-INSULIN SCH ×4 (07:46→20:27)
[2020-11-20] MEDS ORDERED: INSULIN LISPRO 100 UNITS/ML, PEN SQ-INSULIN ONE (08:00)
[2020-11-20] MEDS: SODIUM ZIRCONIUM CYCLOSILICATE 10 GM PO SCH (08:21)
[2020-11-20] MEDS: POLYETHYLENE GLYCOL 17 GM PACKET PO SCH (08:21)
[2020-11-20] MEDS: SEVELAMER CARBONATE 800MG TAB PO SCH ×3 (08:21→16:14)
[2020-11-20] MEDS: DOCUSATE 100 MG CAPSULE PO SCH ×2 (08:21→20:26)
[2020-11-20] MEDS: FAMOTIDINE 20 MG TABLET PO SCH (08:21)
[2020-11-20] MEDS: LEVETIRACETAM 500 MG TABLET PO SCH ×2 (08:21→20:26)
[2020-11-20] MEDS: BUPROPION 100 MG TABLET PO SCH ×2 (08:21→20:25)
[2020-11-20] MEDS: SODIUM CHLORIDE FLUSH 10ML SYR IVF SCH ×2 (08:34→20:26)
[2020-11-20 14:26] VITALS: BP 124/73
[2020-11-20] MEDS: ONDANSETRON ODT 4 MG PO PRN (16:13)
[2020-11-20] MEDS: ACETAMINOPHEN 325 MG TABLET PO PRN (16:14)
[2020-11-20 20:23] VITALS: BP 146/93
[2020-11-20] MEDS: MELATONIN 5 MG TABLET PO PRN (20:34)
[2020-11-21 02:52] VITALS: BP 143/95
[2020-11-21 06:18] LABS: BASOPHILS % (AUTO) 2 % (0-1); EOSINOPHILS % (AUTO) 6 % (1-7); LYMPHOCYTES % (AUTO) 18 % (22-44); MEAN CORPUSCULAR HEMOGLOBIN 28.9 pg (27.0-34.8); MEAN CORPUSCULAR HGB CONC 32.8 g/dL (32.4-35.8); MEAN PLATELET VOLUME 10.1 fL (7.4-10.4); MONOCYTES % (AUTO) 9 % (2-9); NEUTROPHILS % (AUTO) 66 % (42-75); PLATELET COUNT 270 x10^3/uL (130-400); RED BLOOD COUNT 3.11 x10^6/uL (3.82-5.3); RED CELL DISTRIBUTION WIDTH 15.5 % (9.6-15.2)
[2020-11-21] MEDS: HYDROCORTISONE 5 MG TABLET PO SCH ×2 (06:20→12:00)
[2020-11-21] MEDS: LEVOTHYROXINE 100 MCG TABLET PO SCH (06:20)
[2020-11-21] MEDS: HEPARIN 5,000 UNITS/ML, 1ML SQ SCH ×3 (06:21→22:54)
[2020-11-21 06:32] LABS: ALBUMIN 2.6 g/dL (3.4-5.0); ANION GAP 12 mmol/L (5-15); CALCIUM 8.7 mg/dL (8.5-10.1); CHLORIDE 95 mmol/L (98-107)
[2020-11-21 06:36] LABS: ALANINE AMINOTRANSFERASE 15 U/L (12-78); ALKALINE PHOSPHATASE 173 U/L (45-117); BILIRUBIN,TOTAL 0.3 mg/dL (0.2-1.0); CREATININE 7.99 mg/dL (0.55-1.02); TOTAL PROTEIN 7.2 g/dL (6.4-8.2)
[2020-11-21 08:06] VITALS: BP 112/72
[2020-11-21] MEDS: SODIUM CHLORIDE FLUSH 10ML SYR IVF SCH ×2 (09:00→20:09)
[2020-11-21] MEDS: FAMOTIDINE 20 MG TABLET PO SCH (09:02)
[2020-11-21] MEDS: POLYETHYLENE GLYCOL 17 GM PACKET PO SCH (09:02)
[2020-11-21] MEDS: BUPROPION 100 MG TABLET PO SCH ×2 (09:02→20:06)
[2020-11-21] MEDS: IRON SUCROSE COMPLEX 100MG/5ML IV SCH ×2 (09:02→13:48)
[2020-11-21] MEDS: SEVELAMER CARBONATE 800MG TAB PO SCH ×3 (09:02→18:15)
[2020-11-21] MEDS: SODIUM ZIRCONIUM CYCLOSILICATE 10 GM PO SCH (09:02)
[2020-11-21] MEDS: LEVETIRACETAM 500 MG TABLET PO SCH ×2 (09:03→20:06)
[2020-11-21] MEDS: DOCUSATE 100 MG CAPSULE PO SCH ×2 (09:03→20:06)
[2020-11-21] MEDS: INSULIN LISPRO 100 UNITS/ML, PEN SQ-INSULIN SCH ×4 (09:04→21:00)
[2020-11-21] MEDS: ONDANSETRON ODT 4 MG PO PRN ×2 (12:00→22:53)
[2020-11-21] MEDS ORDERED: BISACODYL 10 MG SUPP PR ONE (13:30)
[2020-11-21] MEDS: LORazepam 0.5MG TABLET PO PRN (14:40)
[2020-11-21] MEDS: HYDROcodone/APAP 5/325 TABLET PO PRN ×2 (15:34→20:58)
[2020-11-21 15:59] VITALS: BP 158/93
[2020-11-21 18:15] VITALS: BP 167/94
[2020-11-21] MEDS: CARVEDILOL 6.25 MG TABLET PO SCH (18:15)
[2020-11-21 19:30] VITALS: BP 126/71
[2020-11-22 02:00] VITALS: BP 119/64
[2020-11-22] MEDS: HYDROCORTISONE 5 MG TABLET PO SCH ×2 (06:00→12:08)
[2020-11-22] MEDS: LEVOTHYROXINE 100 MCG TABLET PO SCH (06:00)
[2020-11-22] MEDS: CARVEDILOL 3.125 MG TABLET PO SCH ×2 (06:00→17:01)
[2020-11-22] MEDS: HEPARIN 5,000 UNITS/ML, 1ML SQ SCH ×3 (06:01→21:49)
[2020-11-22] MEDS ORDERED: INSULIN REGULAR 100 UNITS/ML, 3ML VIAL SQ-INSULIN ONE (09:00)
[2020-11-22] MEDS: SODIUM CHLORIDE FLUSH 10ML SYR IVF SCH ×2 (09:00→21:26)
[2020-11-22] MEDS ORDERED: BISACODYL 10 MG SUPP PR ONE (09:00)
[2020-11-22] MEDS: POLYETHYLENE GLYCOL 17 GM PACKET PO SCH (09:19)
[2020-11-22] MEDS: LEVETIRACETAM 500 MG TABLET PO SCH ×2 (09:20→21:49)
[2020-11-22] MEDS: SODIUM ZIRCONIUM CYCLOSILICATE 10 GM PO SCH (09:20)
[2020-11-22] MEDS: DOCUSATE 100 MG CAPSULE PO SCH ×2 (09:20→21:48)
[2020-11-22] MEDS: FAMOTIDINE 20 MG TABLET PO SCH (09:20)
[2020-11-22] MEDS: BUPROPION 100 MG TABLET PO SCH ×2 (09:20→21:48)
[2020-11-22] MEDS: SEVELAMER CARBONATE 800MG TAB PO SCH ×3 (09:20→17:01)
[2020-11-22] MEDS: INSULIN LISPRO 100 UNITS/ML, PEN SQ-INSULIN SCH ×4 (09:40→21:25)
[2020-11-22 09:55] VITALS: BP 137/84
[2020-11-22] MEDS ORDERED: INSULIN LISPRO 100 UNITS/ML, PEN SQ-INSULIN ONE (11:00)
[2020-11-22] MEDS ORDERED: LORazepam 2 MG/ML, 1ML IVPush PRN (13:00)
[2020-11-22 13:06] VITALS: BP 148/79
[2020-11-22] MEDS: HYDROcodone/APAP 5/325 TABLET PO PRN ×2 (15:56→21:49)
[2020-11-22 19:17] VITALS: BP 127/82
[2020-11-23 00:33] VITALS: BP 124/81
[2020-11-23] MEDS: HEPARIN 5,000 UNITS/ML, 1ML SQ SCH ×3 (06:05→21:49)
[2020-11-23] MEDS: LEVOTHYROXINE 100 MCG TABLET PO SCH (06:06)
[2020-11-23] MEDS: HYDROCORTISONE 5 MG TABLET PO SCH ×2 (06:06→15:27)
[2020-11-23 06:27] VITALS: BP 134/51
[2020-11-23] MEDS: INSULIN LISPRO 100 UNITS/ML, PEN SQ-INSULIN SCH ×4 (07:52→20:51)
[2020-11-23] MEDS: POLYETHYLENE GLYCOL 17 GM PACKET PO SCH (07:53)
[2020-11-23] MEDS: SEVELAMER CARBONATE 800MG TAB PO SCH ×3 (07:54→17:07)
[2020-11-23] MEDS: DOCUSATE 100 MG CAPSULE PO SCH ×2 (07:54→20:51)
[2020-11-23] MEDS: BUPROPION 100 MG TABLET PO SCH ×2 (07:54→20:51)
[2020-11-23] MEDS: FAMOTIDINE 20 MG TABLET PO SCH (07:54)
[2020-11-23] MEDS: SODIUM CHLORIDE FLUSH 10ML SYR IVF SCH ×3 (08:46→20:54)
[2020-11-23] MEDS: IRON SUCROSE COMPLEX 100MG/5ML IV SCH (09:00)
[2020-11-23] MEDS: ACETAMINOPHEN 325 MG TABLET PO PRN ×3 (12:36→21:49)
[2020-11-23] MEDS: LEVETIRACETAM 500 MG TABLET PO SCH ×2 (15:27→20:51)
[2020-11-23] MEDS: CARVEDILOL 6.25 MG TABLET PO SCH (17:07)
[2020-11-23] MEDS: SODIUM ZIRCONIUM CYCLOSILICATE 10 GM PO SCH (18:38)
[2020-11-23 19:01] VITALS: BP 142/72
[2020-11-24 01:24] VITALS: BP 151/102
[2020-11-24] MEDS: ACETAMINOPHEN 325 MG TABLET PO PRN ×3 (01:56→21:13)
[2020-11-24] MEDS: MELATONIN 5 MG TABLET PO PRN ×2 (01:56→23:36)
[2020-11-24 05:31] VITALS: BP 150/95
[2020-11-24] MEDS: HYDROCORTISONE 5 MG TABLET PO SCH ×2 (05:45→12:41)
[2020-11-24] MEDS: HEPARIN 5,000 UNITS/ML, 1ML SQ SCH ×3 (05:45→22:51)
[2020-11-24] MEDS: CARVEDILOL 3.125 MG TABLET PO SCH ×2 (05:45→19:26)
[2020-11-24] MEDS: LEVOTHYROXINE 100 MCG TABLET PO SCH (05:46)
[2020-11-24] MEDS ORDERED: INSULIN REGULAR 100 UNITS/ML, 3ML VIAL SQ-INSULIN ONE (07:00)
[2020-11-24 07:25] VITALS: BP 118/49
[2020-11-24] MEDS: SEVELAMER CARBONATE 800MG TAB PO SCH ×3 (08:26→17:14)
[2020-11-24] MEDS: INSULIN LISPRO 100 UNITS/ML, PEN SQ-INSULIN SCH ×4 (08:26→21:16)
[2020-11-24] MEDS: LEVETIRACETAM 500 MG TABLET PO SCH ×2 (08:28→21:13)
[2020-11-24] MEDS: DOCUSATE 100 MG CAPSULE PO SCH ×2 (08:28→21:14)
[2020-11-24] MEDS: BUPROPION 100 MG TABLET PO SCH ×2 (08:29→21:14)
[2020-11-24] MEDS: SODIUM CHLORIDE FLUSH 10ML SYR IVF SCH ×2 (08:29→21:00)
[2020-11-24] MEDS: FAMOTIDINE 20 MG TABLET PO SCH (08:29)
[2020-11-24] MEDS: POLYETHYLENE GLYCOL 17 GM PACKET PO SCH (08:32)
[2020-11-24] MEDS: ONDANSETRON ODT 4 MG PO PRN (10:01)
[2020-11-24] MEDS: SODIUM ZIRCONIUM CYCLOSILICATE 10 GM PO SCH (10:55)
[2020-11-24 13:35] VITALS: BP 141/83
[2020-11-24 19:55] VITALS: BP 140/87
[2020-11-24] MEDS: INSULIN GLARGINE 100 UNITS/ML, PEN SQ-INSULIN SCH (21:15)
[2020-11-25] MEDS: ONDANSETRON 2MG/ML, 2ML IVPush PRN (00:26)
[2020-11-25] MEDS: ONDANSETRON ODT 4 MG PO PRN ×2 (00:34→22:57)
[2020-11-25 00:58] VITALS: BP 142/93
[2020-11-25] MEDS: LEVOTHYROXINE 100 MCG TABLET PO SCH (05:38)
[2020-11-25] MEDS: HEPARIN 5,000 UNITS/ML, 1ML SQ SCH ×4 (05:38→21:37)
[2020-11-25] MEDS: HYDROCORTISONE 5 MG TABLET PO SCH ×2 (05:39→11:24)
[2020-11-25] MEDS: INSULIN LISPRO 100 UNITS/ML, PEN SQ-INSULIN SCH ×4 (07:00→22:00)
[2020-11-25 07:01] VITALS: BP 165/106
[2020-11-25] MEDS: SODIUM CHLORIDE FLUSH 10ML SYR IVF SCH ×2 (07:24→21:00)
[2020-11-25] MEDS: DOCUSATE 100 MG CAPSULE PO SCH ×2 (07:54→21:18)
[2020-11-25] MEDS: FAMOTIDINE 20 MG TABLET PO SCH (07:55)
[2020-11-25] MEDS: ACETAMINOPHEN 325 MG TABLET PO PRN ×2 (07:55→22:57)
[2020-11-25] MEDS: SEVELAMER CARBONATE 800MG TAB PO SCH ×3 (07:55→17:30)
[2020-11-25] MEDS: POLYETHYLENE GLYCOL 17 GM PACKET PO SCH (07:55)
[2020-11-25] MEDS: BUPROPION 100 MG TABLET PO SCH ×2 (10:52→21:35)
[2020-11-25] MEDS: LEVETIRACETAM 500 MG TABLET PO SCH ×2 (10:52→21:35)
[2020-11-25] MEDS: SODIUM ZIRCONIUM CYCLOSILICATE 10 GM PO SCH (10:53)
[2020-11-25] MEDS: ERGOCALCIFEROL 50,000 UNIT CAPSULE PO SCH (10:56)
[2020-11-25 13:36] VITALS: BP 163/65
[2020-11-25] MEDS: LORazepam 0.5MG TABLET PO PRN (14:46)
[2020-11-25] MEDS: IRON SUCROSE COMPLEX 100MG/5ML IV SCH (14:58)
[2020-11-25 19:59] VITALS: BP 183/86
[2020-11-25] MEDS: CARVEDILOL 6.25 MG TABLET PO SCH (20:12)
[2020-11-25] MEDS: DARBEPOETIN 100 MCG/ML SQ SCH (21:36)
[2020-11-25] MEDS: DARBEPOETIN 60 MCG/ML SQ SCH (21:36)
[2020-11-25] MEDS: INSULIN GLARGINE 100 UNITS/ML, PEN SQ-INSULIN SCH (22:01)
[2020-11-26 01:18] VITALS: BP 132/86
[2020-11-26] MEDS: LEVOTHYROXINE 100 MCG TABLET PO SCH (06:20)
[2020-11-26] MEDS: CARVEDILOL 3.125 MG TABLET PO SCH ×2 (06:20→17:23)
[2020-11-26] MEDS: HYDROCORTISONE 5 MG TABLET PO SCH ×2 (06:21→10:54)
[2020-11-26] MEDS: HEPARIN 5,000 UNITS/ML, 1ML SQ SCH ×3 (06:22→22:33)
[2020-11-26 07:06] VITALS: BP 172/88
[2020-11-26 07:31] LABS: BASOPHILS % (AUTO) 1 % (0-1); EOSINOPHILS % (AUTO) 7 % (1-7); LYMPHOCYTES % (AUTO) 19 % (22-44); MEAN CORPUSCULAR HEMOGLOBIN 29.9 pg (27.0-34.8); MEAN CORPUSCULAR HGB CONC 32.7 g/dL (32.4-35.8); MEAN PLATELET VOLUME 8.9 fL (7.4-10.4); MONOCYTES % (AUTO) 13 % (2-9); NEUTROPHILS % (AUTO) 60 % (42-75); PLATELET COUNT 256 x10^3/uL (130-400); RED BLOOD COUNT 3.02 x10^6/uL (3.82-5.3); RED CELL DISTRIBUTION WIDTH 17.6 % (9.6-15.2)
[2020-11-26 07:41] LABS: ALANINE AMINOTRANSFERASE 18 U/L (12-78); ALBUMIN 2.7 g/dL (3.4-5.0); ANION GAP 13 mmol/L (5-15); CALCIUM 8.6 mg/dL (8.5-10.1); CHLORIDE 95 mmol/L (98-107); CREATININE 5.48 mg/dL (0.55-1.02)
[2020-11-26 07:45] LABS: ALKALINE PHOSPHATASE 154 U/L (45-117); BILIRUBIN,TOTAL 0.4 mg/dL (0.2-1.0); TOTAL PROTEIN 6.8 g/dL (6.4-8.2)
[2020-11-26] MEDS: DOCUSATE 100 MG CAPSULE PO SCH ×2 (07:58→21:21)
[2020-11-26] MEDS: FAMOTIDINE 20 MG TABLET PO SCH (07:59)
[2020-11-26] MEDS: ONDANSETRON ODT 4 MG PO PRN ×2 (07:59→16:22)
[2020-11-26] MEDS ORDERED: INSULIN LISPRO 100 UNIT/ML, 3ML VIAL SQ-INSULIN ONE (08:00)
[2020-11-26] MEDS: INSULIN LISPRO 100 UNITS/ML, PEN SQ-INSULIN SCH ×4 (08:00→21:14)
[2020-11-26] MEDS: SODIUM CHLORIDE FLUSH 10ML SYR IVF SCH ×2 (09:00→21:00)
[2020-11-26] MEDS ORDERED: INSULIN LISPRO 100 UNITS/ML, PEN SQ-INSULIN ONE ×2 (09:00→11:30)
[2020-11-26] MEDS: LEVETIRACETAM 500 MG TABLET PO SCH ×2 (09:03→21:21)
[2020-11-26] MEDS: SEVELAMER CARBONATE 800MG TAB PO SCH ×3 (09:03→16:21)
[2020-11-26] MEDS: POLYETHYLENE GLYCOL 17 GM PACKET PO SCH (09:04)
[2020-11-26] MEDS: BUPROPION 100 MG TABLET PO SCH ×2 (09:04→21:21)
[2020-11-26] MEDS: LORazepam 0.5MG TABLET PO PRN (09:11)
[2020-11-26] MEDS: SODIUM ZIRCONIUM CYCLOSILICATE 10 GM PO SCH (09:11)
[2020-11-26 10:00] VITALS: BP 164/89
[2020-11-26 14:14] VITALS: BP 173/69
[2020-11-26] MEDS: HYDROcodone/APAP 5/325 TABLET PO PRN (16:22)
[2020-11-26 20:01] VITALS: BP 138/90
[2020-11-26] MEDS: INSULIN GLARGINE 100 UNITS/ML, PEN SQ-INSULIN SCH (21:21)
[2020-11-27 00:46] VITALS: BP 148/90
[2020-11-27] MEDS: HEPARIN 5,000 UNITS/ML, 1ML SQ SCH ×3 (06:06→21:15)
[2020-11-27] MEDS: HYDROCORTISONE 5 MG TABLET PO SCH ×2 (06:07→11:27)
[2020-11-27] MEDS: LEVOTHYROXINE 100 MCG TABLET PO SCH (06:07)
[2020-11-27] MEDS: CARVEDILOL 3.125 MG TABLET PO SCH ×2 (06:07→17:34)
[2020-11-27 06:54] VITALS: BP 144/98
[2020-11-27] MEDS: BUPROPION 100 MG TABLET PO SCH ×2 (08:29→21:14)
[2020-11-27] MEDS: POLYETHYLENE GLYCOL 17 GM PACKET PO SCH (08:29)
[2020-11-27] MEDS: SODIUM ZIRCONIUM CYCLOSILICATE 10 GM PO SCH (08:29)
[2020-11-27] MEDS: SEVELAMER CARBONATE 800MG TAB PO SCH ×4 (08:30→17:35)
[2020-11-27] MEDS: FAMOTIDINE 20 MG TABLET PO SCH (08:30)
[2020-11-27] MEDS: DOCUSATE 100 MG CAPSULE PO SCH ×2 (08:30→21:14)
[2020-11-27] MEDS: LEVETIRACETAM 500 MG TABLET PO SCH ×2 (08:30→21:14)
[2020-11-27] MEDS: SODIUM CHLORIDE FLUSH 10ML SYR IVF SCH ×2 (08:31→21:13)
[2020-11-27] MEDS: INSULIN LISPRO 100 UNITS/ML, PEN SQ-INSULIN SCH ×4 (08:32→21:16)
[2020-11-27 09:56] LABS: ALBUMIN 2.8 g/dL (3.4-5.0); ANION GAP 12 mmol/L (5-15); CALCIUM 8.9 mg/dL (8.5-10.1); CHLORIDE 94 mmol/L (98-107)
[2020-11-27 10:00] LABS: ALANINE AMINOTRANSFERASE 24 U/L (12-78); ALKALINE PHOSPHATASE 184 U/L (45-117); BILIRUBIN,TOTAL 0.4 mg/dL (0.2-1.0); CREATININE 7.02 mg/dL (0.55-1.02); TOTAL PROTEIN 7.1 g/dL (6.4-8.2)
[2020-11-27] MEDS: ACETAMINOPHEN 325 MG TABLET PO PRN ×2 (11:27→19:49)
[2020-11-27 15:17] VITALS: BP 166/101
[2020-11-27 19:00] VITALS: BP 143/73
[2020-11-27] MEDS: MELATONIN 5 MG TABLET PO PRN (21:13)
[2020-11-27] MEDS: HYDROcodone/APAP 5/325 TABLET PO PRN (21:14)
[2020-11-27] MEDS: INSULIN GLARGINE 100 UNITS/ML, PEN SQ-INSULIN SCH (21:17)
[2020-11-28 01:35] VITALS: BP 131/67
[2020-11-28] MEDS: LEVOTHYROXINE 100 MCG TABLET PO SCH (06:00)
[2020-11-28] MEDS: HEPARIN 5,000 UNITS/ML, 1ML SQ SCH ×3 (06:07→20:58)
[2020-11-28] MEDS: HYDROCORTISONE 5 MG TABLET PO SCH ×2 (06:07→12:08)
[2020-11-28 07:18] VITALS: BP 139/94
[2020-11-28] MEDS: INSULIN LISPRO 100 UNITS/ML, PEN SQ-INSULIN SCH ×4 (08:27→20:58)
[2020-11-28] MEDS: SEVELAMER CARBONATE 800MG TAB PO SCH ×3 (08:28→17:33)
[2020-11-28] MEDS: INSULIN GLARGINE 100 UNITS/ML, PEN SQ-INSULIN SCH ×2 (08:28→20:59)
[2020-11-28] MEDS: SODIUM CHLORIDE FLUSH 10ML SYR IVF SCH ×2 (08:30→21:00)
[2020-11-28] MEDS: DOCUSATE 100 MG CAPSULE PO SCH ×2 (08:38→20:57)
[2020-11-28] MEDS: BUPROPION 100 MG TABLET PO SCH ×2 (08:38→20:57)
[2020-11-28] MEDS: LEVETIRACETAM 500 MG TABLET PO SCH ×2 (08:38→20:57)
[2020-11-28] MEDS: FAMOTIDINE 20 MG TABLET PO SCH (08:38)
[2020-11-28] MEDS: POLYETHYLENE GLYCOL 17 GM PACKET PO SCH (08:39)
[2020-11-28] MEDS: IRON SUCROSE COMPLEX 100MG/5ML IV SCH ×2 (08:39→08:53)
[2020-11-28] MEDS ORDERED: INSULIN LISPRO 100 UNIT/ML, 3ML VIAL SQ-INSULIN PRN (09:00)
[2020-11-28] MEDS: SODIUM ZIRCONIUM CYCLOSILICATE 10 GM PO SCH (10:11)
[2020-11-28] MEDS: ACETAMINOPHEN 325 MG TABLET PO PRN (10:11)
[2020-11-28] MEDS ORDERED: HYDROCORTISONE 10 MG TABLET ONE (12:05)
[2020-11-28 13:30] VITALS: BP 165/124
[2020-11-28] MEDS: HYDROcodone/APAP 5/325 TABLET PO PRN ×2 (13:47→20:57)
[2020-11-28] MEDS: CARVEDILOL 3.125 MG TABLET PO SCH (17:34)
[2020-11-28] MEDS: CARVEDILOL 6.25 MG TABLET PO SCH (17:36)
[2020-11-28 18:55] VITALS: BP 161/88
[2020-11-28] MEDS: MELATONIN 5 MG TABLET PO PRN (20:58)
[2020-11-28 21:00] LABS: ANION GAP 17 mmol/L (5-15); CALCIUM 8.4 mg/dL (8.5-10.1); CHLORIDE 89 mmol/L (98-107); CREATININE 8.38 mg/dL (0.55-1.02)
[2020-11-28] MEDS ORDERED: INSULIN LISPRO 100 UNITS/ML, PEN SQ-INSULIN ONE (21:00)
[2020-11-29] MEDS ORDERED: SODIUM BICARBONATE 650 MG TABLET PO ONE
[2020-11-29] MEDS: INSULIN LISPRO 100 UNITS/ML, PEN SQ-INSULIN SCH ×6 (00:03→20:12)
[2020-11-29] MEDS: ONDANSETRON ODT 4 MG PO PRN (00:50)
[2020-11-29] MEDS: ACETAMINOPHEN 325 MG TABLET PO PRN (01:06)
[2020-11-29 01:32] VITALS: BP 154/82
[2020-11-29] MEDS: HYDROCORTISONE 5 MG TABLET PO SCH ×2 (05:29→13:52)
[2020-11-29] MEDS: LEVOTHYROXINE 100 MCG TABLET PO SCH (05:30)
[2020-11-29] MEDS: HEPARIN 5,000 UNITS/ML, 1ML SQ SCH ×3 (05:30→23:57)
[2020-11-29 05:49] LABS: CHLORIDE 91 mmol/L (98-107)
[2020-11-29 05:55] LABS: ALBUMIN 2.7 g/dL (3.4-5.0); ANION GAP 15 mmol/L (5-15); CALCIUM 8.6 mg/dL (8.5-10.1); CREATININE 8.93 mg/dL (0.55-1.02)
[2020-11-29 07:16] VITALS: BP 147/93
[2020-11-29] MEDS: DOCUSATE 100 MG CAPSULE PO SCH ×2 (08:18→20:10)
[2020-11-29] MEDS: INSULIN GLARGINE 100 UNITS/ML, PEN SQ-INSULIN SCH ×2 (08:18→20:11)
[2020-11-29] MEDS: SEVELAMER CARBONATE 800MG TAB PO SCH ×3 (08:18→17:10)
[2020-11-29] MEDS: LEVETIRACETAM 500 MG TABLET PO SCH ×2 (08:19→20:19)
[2020-11-29] MEDS: SODIUM ZIRCONIUM CYCLOSILICATE 10 GM PO SCH (08:19)
[2020-11-29] MEDS: POLYETHYLENE GLYCOL 17 GM PACKET PO SCH (08:19)
[2020-11-29] MEDS: BUPROPION 100 MG TABLET PO SCH ×2 (08:19→20:10)
[2020-11-29] MEDS: FAMOTIDINE 20 MG TABLET PO SCH (08:19)
[2020-11-29] MEDS: SODIUM CHLORIDE FLUSH 10ML SYR IVF SCH ×2 (08:19→20:10)
[2020-11-29] MEDS: DIPHENHYDRAMINE/ZINC CRM 2%, 30GM TP PRN (12:40)
[2020-11-29 14:50] VITALS: BP 156/91
[2020-11-29] MEDS: CARVEDILOL 3.125 MG TABLET PO SCH (17:10)
[2020-11-29 19:11] VITALS: BP 142/82
[2020-11-29] MEDS: HYDROcodone/APAP 5/325 TABLET PO PRN (20:11)
[2020-11-29] MEDS: LORazepam 0.5MG TABLET PO PRN (23:57)
[2020-11-30 00:43] VITALS: BP 132/79
[2020-11-30] MEDS: HYDROcodone/APAP 5/325 TABLET PO PRN ×3 (03:23→16:52)
[2020-11-30] MEDS: HYDROCORTISONE 5 MG TABLET PO SCH ×2 (04:56→12:29)
[2020-11-30] MEDS: LEVOTHYROXINE 100 MCG TABLET PO SCH (04:57)
[2020-11-30] MEDS: INSULIN LISPRO 100 UNITS/ML, PEN SQ-INSULIN SCH ×4 (08:11→22:52)
[2020-11-30] MEDS: SEVELAMER CARBONATE 800MG TAB PO SCH ×3 (08:12→16:52)
[2020-11-30] MEDS: HEPARIN 5,000 UNITS/ML, 1ML SQ SCH ×3 (08:13→22:52)
[2020-11-30 08:52] VITALS: BP 146/76
[2020-11-30] MEDS: SODIUM CHLORIDE FLUSH 10ML SYR IVF SCH ×2 (09:00→21:00)
[2020-11-30] MEDS: IRON SUCROSE COMPLEX 100MG/5ML IV SCH ×2 (09:00→20:52)
[2020-11-30] MEDS: POLYETHYLENE GLYCOL 17 GM PACKET PO SCH (09:00)
[2020-11-30] MEDS: LEVETIRACETAM 500 MG TABLET PO SCH ×2 (09:25→22:51)
[2020-11-30] MEDS: BUPROPION 100 MG TABLET PO SCH ×2 (09:26→22:51)
[2020-11-30] MEDS: DOCUSATE 100 MG CAPSULE PO SCH ×2 (09:26→22:51)
[2020-11-30] MEDS: INSULIN GLARGINE 100 UNITS/ML, PEN SQ-INSULIN SCH ×2 (09:26→22:53)
[2020-11-30] MEDS: FAMOTIDINE 20 MG TABLET PO SCH (09:26)
[2020-11-30] MEDS: SODIUM ZIRCONIUM CYCLOSILICATE 10 GM PO SCH (11:17)
[2020-11-30 15:45] VITALS: BP 135/57
[2020-11-30] MEDS: CARVEDILOL 6.25 MG TABLET PO SCH (16:53)
[2020-11-30] MEDS: LORazepam 0.5MG TABLET PO PRN (18:29)
[2020-11-30 22:37] VITALS: BP 165/99
[2020-12-01 00:42] VITALS: BP 162/89
[2020-12-01 04:59] VITALS: BP 158/99
[2020-12-01] MEDS: CARVEDILOL 3.125 MG TABLET PO SCH ×2 (05:00→16:48)
[2020-12-01] MEDS: HYDROCORTISONE 5 MG TABLET PO SCH ×2 (05:00→11:52)
[2020-12-01] MEDS: LEVOTHYROXINE 100 MCG TABLET PO SCH (05:01)
[2020-12-01] MEDS: ACETAMINOPHEN 325 MG TABLET PO PRN ×2 (05:01→14:56)
[2020-12-01] MEDS: INSULIN LISPRO 100 UNITS/ML, PEN SQ-INSULIN SCH ×5 (07:00→20:24)
[2020-12-01 08:30] VITALS: BP 177/104
[2020-12-01] MEDS: INSULIN GLARGINE 100 UNITS/ML, PEN SQ-INSULIN SCH ×2 (08:39→20:23)
[2020-12-01] MEDS: HEPARIN 5,000 UNITS/ML, 1ML SQ SCH ×4 (08:39→19:18)
[2020-12-01] MEDS: DOCUSATE 100 MG CAPSULE PO SCH ×2 (08:39→20:23)
[2020-12-01] MEDS: BUPROPION 100 MG TABLET PO SCH ×2 (08:39→20:22)
[2020-12-01] MEDS: SEVELAMER CARBONATE 800MG TAB PO SCH ×3 (08:39→16:48)
[2020-12-01] MEDS: SODIUM ZIRCONIUM CYCLOSILICATE 10 GM PO SCH (08:40)
[2020-12-01] MEDS: LEVETIRACETAM 500 MG TABLET PO SCH ×2 (08:40→20:23)
[2020-12-01] MEDS: SODIUM CHLORIDE FLUSH 10ML SYR IVF SCH ×2 (08:40→20:22)
[2020-12-01] MEDS: FAMOTIDINE 20 MG TABLET PO SCH (08:40)
[2020-12-01] MEDS: POLYETHYLENE GLYCOL 17 GM PACKET PO SCH (08:40)
[2020-12-01 13:34] VITALS: BP 139/109
[2020-12-01 19:06] VITALS: BP 142/98
[2020-12-02 00:56] VITALS: BP 158/99
[2020-12-02] MEDS: HYDROcodone/APAP 5/325 TABLET PO PRN ×2 (02:30→19:33)
[2020-12-02] MEDS: HYDROCORTISONE 5 MG TABLET PO SCH ×2 (05:32→11:46)
[2020-12-02] MEDS: LEVOTHYROXINE 100 MCG TABLET PO SCH (05:33)
[2020-12-02 06:51] VITALS: BP 159/103
[2020-12-02] MEDS: INSULIN LISPRO 100 UNITS/ML, PEN SQ-INSULIN SCH ×4 (07:00→20:54)
[2020-12-02] MEDS ORDERED: LIDOCAINE 1%, 20ML ONE (07:43)
[2020-12-02] MEDS: SODIUM CHLORIDE FLUSH 10ML SYR IVF SCH ×2 (07:59→21:00)
[2020-12-02] MEDS: INSULIN GLARGINE 100 UNITS/ML, PEN SQ-INSULIN SCH ×2 (08:00→20:55)
[2020-12-02] MEDS: SEVELAMER CARBONATE 800MG TAB PO SCH ×3 (08:00→16:47)
[2020-12-02] MEDS: DOCUSATE 100 MG CAPSULE PO SCH ×2 (08:01→20:53)
[2020-12-02] MEDS: FAMOTIDINE 20 MG TABLET PO SCH (08:01)
[2020-12-02] MEDS: IRON SUCROSE COMPLEX 100MG/5ML IV SCH (08:01)
[2020-12-02] MEDS: SODIUM ZIRCONIUM CYCLOSILICATE 10 GM PO SCH (08:01)
[2020-12-02] MEDS: LEVETIRACETAM 500 MG TABLET PO SCH ×2 (08:01→20:53)
[2020-12-02] MEDS: BUPROPION 100 MG TABLET PO SCH ×2 (08:01→20:53)
[2020-12-02] MEDS: POLYETHYLENE GLYCOL 17 GM PACKET PO SCH (08:01)
[2020-12-02] MEDS: ERGOCALCIFEROL 50,000 UNIT CAPSULE PO SCH (10:00)
[2020-12-02] MEDS: DARBEPOETIN 100 MCG/ML SQ SCH (10:15)
[2020-12-02] MEDS: DARBEPOETIN 60 MCG/ML SQ SCH (10:15)
[2020-12-02] MEDS ORDERED: FENTANYL PF 100 MCG/2ML ONE (13:14)
[2020-12-02] MEDS ORDERED: MIDAZOLAM 1 MG/ML, 5ML ONE (13:14)
[2020-12-02] MEDS ORDERED: NALOXONE 1 MG/ML, 2ML ONE (13:15)
[2020-12-02] MEDS ORDERED: FLUMAZENIL 0.1 MG/1 ML, 5ML ONE (13:15)
[2020-12-02 14:19] VITALS: BP 175/130
[2020-12-02] MEDS: HEPARIN 5,000 UNITS/ML, 1ML SQ SCH (16:47)
[2020-12-02] MEDS: CARVEDILOL 6.25 MG TABLET PO SCH (17:56)
[2020-12-02 18:38] VITALS: BP 149/91
[2020-12-03] MEDS: HEPARIN 5,000 UNITS/ML, 1ML SQ SCH ×3 (00:29→16:54)
[2020-12-03 00:31] VITALS: BP 139/95
[2020-12-03] MEDS: CARVEDILOL 3.125 MG TABLET PO SCH ×2 (05:57→17:15)
[2020-12-03] MEDS: LEVOTHYROXINE 100 MCG TABLET PO SCH (06:00)
[2020-12-03] MEDS: HYDROcodone/APAP 5/325 TABLET PO PRN ×2 (06:05→11:33)
[2020-12-03] MEDS: HYDROCORTISONE 5 MG TABLET PO SCH ×2 (06:05→12:07)
[2020-12-03] MEDS: INSULIN LISPRO 100 UNITS/ML, PEN SQ-INSULIN SCH ×4 (07:00→23:00)
[2020-12-03 07:55] VITALS: BP 147/93
[2020-12-03] MEDS ORDERED: INSULIN LISPRO 100 UNITS/ML, PEN SQ-INSULIN ONE (08:00)
[2020-12-03] MEDS: SEVELAMER CARBONATE 800MG TAB PO SCH ×3 (08:14→16:53)
[2020-12-03] MEDS: LEVETIRACETAM 500 MG TABLET PO SCH ×2 (08:14→23:03)
[2020-12-03] MEDS: DOCUSATE 100 MG CAPSULE PO SCH ×2 (08:14→23:04)
[2020-12-03] MEDS: FAMOTIDINE 20 MG TABLET PO SCH (08:14)
[2020-12-03] MEDS: BUPROPION 100 MG TABLET PO SCH ×2 (08:14→23:03)
[2020-12-03] MEDS: INSULIN GLARGINE 100 UNITS/ML, PEN SQ-INSULIN SCH ×2 (08:15→23:04)
[2020-12-03] MEDS: POLYETHYLENE GLYCOL 17 GM PACKET PO SCH (08:16)
[2020-12-03] MEDS: SODIUM CHLORIDE FLUSH 10ML SYR IVF SCH ×2 (08:16→23:00)
[2020-12-03] MEDS ORDERED: INSULIN GLARGINE 100 UNITS/ML, PEN SQ-INSULIN SCH (09:00)
[2020-12-03] MEDS: SODIUM ZIRCONIUM CYCLOSILICATE 10 GM PO SCH (11:36)
[2020-12-03 14:13] VITALS: BP 122/85
[2020-12-03] MEDS: LORazepam 0.5MG TABLET PO PRN (21:20)
[2020-12-03] MEDS: MELATONIN 5 MG TABLET PO PRN (23:15)
[2020-12-04] MEDS: HEPARIN 5,000 UNITS/ML, 1ML SQ SCH ×4 (00:08→17:07)
[2020-12-04 02:53] VITALS: BP 161/84
[2020-12-04] MEDS: HYDROcodone/APAP 5/325 TABLET PO PRN ×3 (03:22→22:12)
[2020-12-04] MEDS: CARVEDILOL 3.125 MG TABLET PO SCH ×2 (05:37→17:18)
[2020-12-04] MEDS: HYDROCORTISONE 5 MG TABLET PO SCH ×2 (05:37→12:23)
[2020-12-04] MEDS: LEVOTHYROXINE 100 MCG TABLET PO SCH (05:38)
[2020-12-04 07:41] VITALS: BP 163/100
[2020-12-04] MEDS: DOCUSATE 100 MG CAPSULE PO SCH ×2 (08:03→21:14)
[2020-12-04] MEDS: SEVELAMER CARBONATE 800MG TAB PO SCH ×3 (08:03→16:59)
[2020-12-04] MEDS: LEVETIRACETAM 500 MG TABLET PO SCH ×2 (08:03→21:14)
[2020-12-04] MEDS: INSULIN LISPRO 100 UNITS/ML, PEN SQ-INSULIN SCH ×4 (08:04→21:17)
[2020-12-04] MEDS: POLYETHYLENE GLYCOL 17 GM PACKET PO SCH (08:04)
[2020-12-04] MEDS: FAMOTIDINE 20 MG TABLET PO SCH (08:04)
[2020-12-04] MEDS: BUPROPION 100 MG TABLET PO SCH ×2 (08:04→21:14)
[2020-12-04] MEDS: INSULIN GLARGINE 100 UNITS/ML, PEN SQ-INSULIN SCH ×2 (08:05→21:16)
[2020-12-04] MEDS: SODIUM CHLORIDE FLUSH 10ML SYR IVF SCH ×2 (08:06→21:00)
[2020-12-04 12:58] LABS: ALBUMIN 2.9 g/dL (3.4-5.0); ANION GAP 11 mmol/L (5-15); CALCIUM 9.3 mg/dL (8.5-10.1); CHLORIDE 102 mmol/L (98-107)
[2020-12-04 12:59] LABS: CREATININE 6.52 mg/dL (0.55-1.02)
[2020-12-04 13:06] VITALS: BP 147/96
[2020-12-04 13:09] LABS: BASOPHILS % (AUTO) 1 % (0-1); EOSINOPHILS % (AUTO) 6 % (1-7); LYMPHOCYTES % (AUTO) 14 % (22-44); MEAN CORPUSCULAR HEMOGLOBIN 29.7 pg (27.0-34.8); MEAN CORPUSCULAR HGB CONC 32.2 g/dL (32.4-35.8); MEAN PLATELET VOLUME 9.4 fL (7.4-10.4); MONOCYTES % (AUTO) 11 % (2-9); NEUTROPHILS % (AUTO) 68 % (42-75); PLATELET COUNT 250 x10^3/uL (130-400); RED BLOOD COUNT 3.28 x10^6/uL (3.82-5.3); RED CELL DISTRIBUTION WIDTH 19.7 % (9.6-15.2)
[2020-12-04] MEDS: ONDANSETRON ODT 4 MG PO PRN (15:23)
[2020-12-04 19:13] VITALS: BP 140/88
[2020-12-04] MEDS: MELATONIN 5 MG TABLET PO PRN (22:13)
[2020-12-04] MEDS: SODIUM ZIRCONIUM CYCLOSILICATE 10 GM PO SCH (23:07)
[2020-12-05] MEDS: HEPARIN 5,000 UNITS/ML, 1ML SQ SCH ×3 (00:30→16:48)
[2020-12-05 00:55] VITALS: BP 131/88
[2020-12-05] MEDS: LORazepam 0.5MG TABLET PO PRN ×2 (02:02→10:09)
[2020-12-05] MEDS: LEVOTHYROXINE 100 MCG TABLET PO SCH (05:56)
[2020-12-05] MEDS: HYDROCORTISONE 5 MG TABLET PO SCH ×2 (05:56→13:53)
[2020-12-05] MEDS: INSULIN LISPRO 100 UNITS/ML, PEN SQ-INSULIN SCH ×4 (07:00→20:31)
[2020-12-05 07:16] VITALS: BP 139/96
[2020-12-05] MEDS: POLYETHYLENE GLYCOL 17 GM PACKET PO SCH (08:10)
[2020-12-05] MEDS: DOCUSATE 100 MG CAPSULE PO SCH ×2 (08:10→20:29)
[2020-12-05] MEDS: SEVELAMER CARBONATE 800MG TAB PO SCH ×3 (08:10→16:48)
[2020-12-05] MEDS: BUPROPION 100 MG TABLET PO SCH ×2 (08:10→20:29)
[2020-12-05] MEDS: FAMOTIDINE 20 MG TABLET PO SCH (08:11)
[2020-12-05] MEDS: INSULIN GLARGINE 100 UNITS/ML, PEN SQ-INSULIN SCH ×2 (08:27→20:30)
[2020-12-05] MEDS: SODIUM CHLORIDE FLUSH 10ML SYR IVF SCH ×2 (09:00→20:29)
[2020-12-05] MEDS: IRON SUCROSE COMPLEX 100MG/5ML IV SCH (09:00)
[2020-12-05] MEDS: SODIUM ZIRCONIUM CYCLOSILICATE 10 GM PO SCH (09:00)
[2020-12-05 13:15] VITALS: BP 125/70
[2020-12-05] MEDS: LEVETIRACETAM 500 MG TABLET PO SCH ×2 (13:53→20:29)
[2020-12-05] MEDS: CARVEDILOL 6.25 MG TABLET PO SCH (16:48)
[2020-12-05 18:25] VITALS: BP 139/89
[2020-12-05 19:05] VITALS: BP 131/82
[2020-12-06] MEDS: HEPARIN 5,000 UNITS/ML, 1ML SQ SCH ×3 (01:12→16:50)
[2020-12-06 01:41] VITALS: BP 144/59
[2020-12-06] MEDS: ACETAMINOPHEN 325 MG TABLET PO PRN (03:37)
[2020-12-06 05:43] VITALS: BP 155/104
[2020-12-06] MEDS: CARVEDILOL 3.125 MG TABLET PO SCH ×2 (05:46→16:51)
[2020-12-06] MEDS: HYDROCORTISONE 5 MG TABLET PO SCH ×2 (05:47→11:19)
[2020-12-06] MEDS: LEVOTHYROXINE 100 MCG TABLET PO SCH (05:47)
[2020-12-06] MEDS: DEXTROSE 50%, 50ML SYRINGE IVPush PRN ×2 (05:59→07:20)
[2020-12-06] MEDS: INSULIN LISPRO 100 UNITS/ML, PEN SQ-INSULIN SCH ×4 (07:00→20:55)
[2020-12-06 07:11] LABS: BASOPHILS % (AUTO) 1 % (0-1); EOSINOPHILS % (AUTO) 6 % (1-7); LYMPHOCYTES % (AUTO) 22 % (22-44); MEAN CORPUSCULAR HEMOGLOBIN 29.9 pg (27.0-34.8); MEAN CORPUSCULAR HGB CONC 32.4 g/dL (32.4-35.8); MEAN PLATELET VOLUME 9.2 fL (7.4-10.4); MONOCYTES % (AUTO) 10 % (2-9); NEUTROPHILS % (AUTO) 61 % (42-75); PLATELET COUNT 266 x10^3/uL (130-400); RED BLOOD COUNT 3.68 x10^6/uL (3.82-5.3); RED CELL DISTRIBUTION WIDTH 19.5 % (9.6-15.2)
[2020-12-06] MEDS: DEXTROSE 4 GM TAB.CHEW PO PRN (07:20)
[2020-12-06 07:27] LABS: ALANINE AMINOTRANSFERASE 25 U/L (12-78); ANION GAP 11 mmol/L (5-15); CALCIUM 9.3 mg/dL (8.5-10.1); CHLORIDE 99 mmol/L (98-107)
[2020-12-06 07:29] LABS: ALKALINE PHOSPHATASE 207 U/L (45-117); BILIRUBIN,TOTAL 0.4 mg/dL (0.2-1.0); CREATININE 5.68 mg/dL (0.55-1.02)
[2020-12-06] MEDS: LEVETIRACETAM 500 MG TABLET PO SCH ×2 (07:46→20:54)
[2020-12-06] MEDS: SEVELAMER CARBONATE 800MG TAB PO SCH ×3 (07:46→16:50)
[2020-12-06] MEDS: SODIUM CHLORIDE FLUSH 10ML SYR IVF SCH ×2 (07:47→20:54)
[2020-12-06] MEDS: POLYETHYLENE GLYCOL 17 GM PACKET PO SCH (07:47)
[2020-12-06] MEDS: FAMOTIDINE 20 MG TABLET PO SCH (07:47)
[2020-12-06] MEDS: DOCUSATE 100 MG CAPSULE PO SCH ×2 (07:47→20:54)
[2020-12-06] MEDS: BUPROPION 100 MG TABLET PO SCH ×2 (07:47→20:54)
[2020-12-06 08:00] VITALS: BP 160/88
[2020-12-06 08:30] VITALS: BP 86/63
[2020-12-06] MEDS: SODIUM ZIRCONIUM CYCLOSILICATE 10 GM PO SCH (09:27)
[2020-12-06 13:13] VITALS: BP 152/98
[2020-12-06] MEDS ORDERED: INSULIN LISPRO 100 UNIT/ML, 3ML VIAL SQ-INSULIN ONE ×2 (16:00→19:00)
[2020-12-06 19:19] VITALS: BP 153/92
[2020-12-07 00:16] VITALS: BP 121/86
[2020-12-07] MEDS: HEPARIN 5,000 UNITS/ML, 1ML SQ SCH ×3 (00:23→17:21)
[2020-12-07] MEDS: LORazepam 0.5MG TABLET PO PRN ×2 (00:28→08:43)
[2020-12-07] MEDS: HYDROCORTISONE 5 MG TABLET PO SCH ×2 (05:05→14:16)
[2020-12-07] MEDS: LEVOTHYROXINE 100 MCG TABLET PO SCH (05:05)
[2020-12-07 06:18] VITALS: BP 137/93
[2020-12-07] MEDS: INSULIN LISPRO 100 UNITS/ML, PEN SQ-INSULIN SCH ×4 (07:55→22:06)
[2020-12-07] MEDS: POLYETHYLENE GLYCOL 17 GM PACKET PO SCH (08:13)
[2020-12-07] MEDS: SODIUM ZIRCONIUM CYCLOSILICATE 10 GM PO SCH (08:13)
[2020-12-07] MEDS: LEVETIRACETAM 500 MG TABLET PO SCH ×2 (08:14→22:05)
[2020-12-07] MEDS: FAMOTIDINE 20 MG TABLET PO SCH (08:14)
[2020-12-07] MEDS: SODIUM CHLORIDE FLUSH 10ML SYR IVF SCH ×2 (08:14→21:00)
[2020-12-07] MEDS: DOCUSATE 100 MG CAPSULE PO SCH ×2 (08:14→21:00)
[2020-12-07] MEDS: SEVELAMER CARBONATE 800MG TAB PO SCH ×3 (08:14→17:21)
[2020-12-07] MEDS: BUPROPION 100 MG TABLET PO SCH ×2 (08:14→22:05)
[2020-12-07] MEDS: IRON SUCROSE COMPLEX 100MG/5ML IV SCH (08:43)
[2020-12-07 09:50] LABS: ANION GAP 14 mmol/L (5-15); CALCIUM 8.5 mg/dL (8.5-10.1); CHLORIDE 96 mmol/L (98-107); CREATININE 5.97 mg/dL (0.55-1.02)
[2020-12-07 14:54] VITALS: BP 174/91
[2020-12-07] MEDS: CARVEDILOL 6.25 MG TABLET PO SCH (17:24)
[2020-12-07 20:35] VITALS: BP 152/93
[2020-12-08] MEDS: MELATONIN 5 MG TABLET PO PRN (00:18)
[2020-12-08 01:23] VITALS: BP 143/88
[2020-12-08] MEDS: CARVEDILOL 3.125 MG TABLET PO SCH ×2 (05:59→18:22)
[2020-12-08] MEDS: LEVOTHYROXINE 100 MCG TABLET PO SCH (06:00)
[2020-12-08] MEDS: HYDROCORTISONE 5 MG TABLET PO SCH ×2 (06:01→11:34)
[2020-12-08 06:50] VITALS: BP 159/80
[2020-12-08] MEDS: SODIUM ZIRCONIUM CYCLOSILICATE 10 GM PO SCH (08:35)
[2020-12-08] MEDS: SEVELAMER CARBONATE 800MG TAB PO SCH ×3 (08:36→17:20)
[2020-12-08] MEDS: HEPARIN 5,000 UNITS/ML, 1ML SQ SCH ×3 (08:36→17:20)
[2020-12-08] MEDS: BUPROPION 100 MG TABLET PO SCH ×2 (08:36→20:35)
[2020-12-08] MEDS: FAMOTIDINE 20 MG TABLET PO SCH (08:37)
[2020-12-08] MEDS: LEVETIRACETAM 500 MG TABLET PO SCH ×2 (08:37→20:35)
[2020-12-08] MEDS: INSULIN LISPRO 100 UNITS/ML, PEN SQ-INSULIN SCH ×4 (08:38→20:35)
[2020-12-08] MEDS: SODIUM CHLORIDE FLUSH 10ML SYR IVF SCH ×2 (08:39→21:00)
[2020-12-08] MEDS: DOCUSATE 100 MG CAPSULE PO SCH ×2 (08:39→20:35)
[2020-12-08] MEDS: POLYETHYLENE GLYCOL 17 GM PACKET PO SCH (08:39)
[2020-12-08] MEDS: HYDROcodone/APAP 5/325 TABLET PO PRN (08:51)
[2020-12-08] MEDS ORDERED: HYDROCORTISONE 10 MG TABLET ONE (11:27)
[2020-12-08 12:45] VITALS: BP 142/91
[2020-12-08 18:17] VITALS: BP 157/100
[2020-12-09] MEDS: HEPARIN 5,000 UNITS/ML, 1ML SQ SCH ×4 (00:44→23:32)
[2020-12-09 01:07] VITALS: BP 132/89
[2020-12-09] MEDS: HYDROcodone/APAP 5/325 TABLET PO PRN (02:10)
[2020-12-09 05:50] LABS: ALBUMIN 2.8 g/dL (3.4-5.0); ANION GAP 15 mmol/L (5-15); CALCIUM 8.9 mg/dL (8.5-10.1); CHLORIDE 94 mmol/L (98-107); CREATININE 6.01 mg/dL (0.55-1.02)
[2020-12-09] MEDS: LEVOTHYROXINE 100 MCG TABLET PO SCH (06:00)
[2020-12-09] MEDS: HYDROCORTISONE 5 MG TABLET PO SCH ×2 (06:18→12:50)
[2020-12-09 07:17] VITALS: BP 158/96
[2020-12-09] MEDS: INSULIN LISPRO 100 UNITS/ML, PEN SQ-INSULIN SCH ×4 (07:48→20:01)
[2020-12-09] MEDS: IRON SUCROSE COMPLEX 100MG/5ML IV SCH (09:06)
[2020-12-09] MEDS: SEVELAMER CARBONATE 800MG TAB PO SCH ×3 (10:02→17:13)
[2020-12-09] MEDS: DOCUSATE 100 MG CAPSULE PO SCH ×2 (10:03→19:59)
[2020-12-09] MEDS: SODIUM CHLORIDE FLUSH 10ML SYR IVF SCH ×2 (10:03→21:00)
[2020-12-09] MEDS: POLYETHYLENE GLYCOL 17 GM PACKET PO SCH (10:03)
[2020-12-09] MEDS: BUPROPION 100 MG TABLET PO SCH ×2 (10:03→19:59)
[2020-12-09] MEDS: FAMOTIDINE 20 MG TABLET PO SCH (10:03)
[2020-12-09] MEDS: LEVETIRACETAM 500 MG TABLET PO SCH ×2 (10:03→19:59)
[2020-12-09] MEDS: SODIUM ZIRCONIUM CYCLOSILICATE 10 GM PO SCH (10:03)
[2020-12-09] MEDS: ERGOCALCIFEROL 50,000 UNIT CAPSULE PO SCH (10:04)
[2020-12-09] MEDS: DARBEPOETIN 100 MCG/ML SQ SCH (12:49)
[2020-12-09] MEDS: DARBEPOETIN 60 MCG/ML SQ SCH (12:50)
[2020-12-09] MEDS: CARVEDILOL 6.25 MG TABLET PO SCH (17:13)
[2020-12-09] MEDS: ACETAMINOPHEN 325 MG TABLET PO PRN (19:36)
[2020-12-09 19:55] VITALS: BP 142/69
[2020-12-09] MEDS ORDERED: INSULIN LISPRO 100 UNIT/ML, 3ML VIAL SQ-INSULIN SCH (23:00)
[2020-12-09] MEDS: ONDANSETRON ODT 4 MG PO PRN (23:31)
[2020-12-10 01:10] VITALS: BP 159/98
[2020-12-10] MEDS: HYDROcodone/APAP 5/325 TABLET PO PRN ×2 (02:19→19:55)
[2020-12-10] MEDS: LEVOTHYROXINE 100 MCG TABLET PO SCH (05:35)
[2020-12-10] MEDS: HYDROCORTISONE 5 MG TABLET PO SCH ×2 (05:35→13:42)
[2020-12-10] MEDS: CARVEDILOL 3.125 MG TABLET PO SCH ×2 (05:36→18:11)
[2020-12-10] MEDS: POLYETHYLENE GLYCOL 17 GM PACKET PO SCH (08:00)
[2020-12-10] MEDS: BUPROPION 100 MG TABLET PO SCH ×2 (08:02→21:28)
[2020-12-10] MEDS: FAMOTIDINE 20 MG TABLET PO SCH (08:02)
[2020-12-10] MEDS: INSULIN LISPRO 100 UNITS/ML, PEN SQ-INSULIN SCH ×4 (08:02→21:00)
[2020-12-10] MEDS: DOCUSATE 100 MG CAPSULE PO SCH ×2 (08:02→21:28)
[2020-12-10] MEDS: LEVETIRACETAM 500 MG TABLET PO SCH ×2 (08:02→21:28)
[2020-12-10] MEDS: SEVELAMER CARBONATE 800MG TAB PO SCH ×3 (08:02→16:25)
[2020-12-10] MEDS: SODIUM CHLORIDE FLUSH 10ML SYR IVF SCH ×2 (08:03→20:00)
[2020-12-10] MEDS: HEPARIN 5,000 UNITS/ML, 1ML SQ SCH ×2 (08:03→16:25)
[2020-12-10 09:39] VITALS: BP 114/82
[2020-12-10] MEDS: SODIUM ZIRCONIUM CYCLOSILICATE 10 GM PO SCH (10:52)
[2020-12-10 13:06] LABS: ANION GAP 14 mmol/L (5-15); CALCIUM 9.2 mg/dL (8.5-10.1); CHLORIDE 93 mmol/L (98-107); CREATININE 5.86 mg/dL (0.55-1.02)
[2020-12-10 16:33] VITALS: BP 162/99
[2020-12-10 18:42] VITALS: BP 152/97
[2020-12-10 19:21] VITALS: BP 188/101
[2020-12-10 19:49] VITALS: BP 176/118
[2020-12-11] VITALS: BP 155/106
[2020-12-11] MEDS: HEPARIN 5,000 UNITS/ML, 1ML SQ SCH ×3 (00:12→17:02)
[2020-12-11] MEDS: ONDANSETRON ODT 4 MG PO PRN (04:13)
[2020-12-11] MEDS: HYDROcodone/APAP 5/325 TABLET PO PRN (04:28)
[2020-12-11 06:24] VITALS: BP 170/119
[2020-12-11] MEDS: CARVEDILOL 3.125 MG TABLET PO SCH ×2 (06:30→18:33)
[2020-12-11] MEDS: LEVOTHYROXINE 100 MCG TABLET PO SCH (06:31)
[2020-12-11] MEDS: ACETAMINOPHEN 325 MG TABLET PO PRN ×2 (06:32→09:17)
[2020-12-11] MEDS: HYDROCORTISONE 5 MG TABLET PO SCH ×2 (06:45→11:29)
[2020-12-11] MEDS: INSULIN LISPRO 100 UNITS/ML, PEN SQ-INSULIN SCH ×4 (07:53→22:03)
[2020-12-11] MEDS: DOCUSATE 100 MG CAPSULE PO SCH ×2 (07:55→21:53)
[2020-12-11] MEDS: FAMOTIDINE 20 MG TABLET PO SCH (07:55)
[2020-12-11] MEDS: POLYETHYLENE GLYCOL 17 GM PACKET PO SCH (07:56)
[2020-12-11] MEDS: LEVETIRACETAM 500 MG TABLET PO SCH ×2 (07:56→21:53)
[2020-12-11] MEDS: BUPROPION 100 MG TABLET PO SCH ×2 (07:56→21:53)
[2020-12-11] MEDS: SODIUM CHLORIDE FLUSH 10ML SYR IVF SCH ×2 (07:57→21:00)
[2020-12-11] MEDS: SEVELAMER CARBONATE 800MG TAB PO SCH ×3 (07:58→17:00)
[2020-12-11] MEDS: LACTOBACILLUS CHEW TABLET PO SCH ×3 (09:17→21:53)
[2020-12-11] MEDS ORDERED: HYDROcodone/APAP 5/325 TABLET PO PRN (10:00)
[2020-12-11 12:40] VITALS: BP 151/93
[2020-12-11] MEDS: SODIUM ZIRCONIUM CYCLOSILICATE 10 GM PO SCH (14:29)
[2020-12-11] MEDS ORDERED: MELATONIN 5 MG TABLET PO PRN (15:30)
[2020-12-11] MEDS: FERROUS SULFATE 325 MG TABLET PO SCH (17:03)
[2020-12-11 18:50] VITALS: BP 146/101
[2020-12-12] MEDS: HEPARIN 5,000 UNITS/ML, 1ML SQ SCH ×3 (00:35→16:00)
[2020-12-12 00:39] VITALS: BP 146/93
[2020-12-12] MEDS: ACETAMINOPHEN 325 MG TABLET PO PRN ×2 (02:05→11:50)
[2020-12-12] MEDS: LEVOTHYROXINE 100 MCG TABLET PO SCH (05:40)
[2020-12-12] MEDS ORDERED: HYDROCORTISONE 5 MG TABLET PO SCH (06:00)
[2020-12-12 07:11] VITALS: BP 139/89
[2020-12-12] MEDS: SEVELAMER CARBONATE 800MG TAB PO SCH ×3 (08:05→17:00)
[2020-12-12] MEDS: LACTOBACILLUS CHEW TABLET PO SCH ×3 (08:05→20:34)
[2020-12-12] MEDS: SODIUM CHLORIDE FLUSH 10ML SYR IVF SCH ×2 (08:05→20:33)
[2020-12-12] MEDS: FAMOTIDINE 20 MG TABLET PO SCH (08:05)
[2020-12-12] MEDS: DOCUSATE 100 MG CAPSULE PO SCH ×2 (08:05→20:35)
[2020-12-12] MEDS: LEVETIRACETAM 500 MG TABLET PO SCH ×2 (08:05→20:35)
[2020-12-12] MEDS: INSULIN LISPRO 100 UNITS/ML, PEN SQ-INSULIN SCH ×4 (08:05→20:36)
[2020-12-12] MEDS: BUPROPION 100 MG TABLET PO SCH ×2 (08:05→20:34)
[2020-12-12] MEDS: POLYETHYLENE GLYCOL 17 GM PACKET PO SCH (08:06)
[2020-12-12] MEDS: HYDROCORTISONE 5 MG TABLET PO SCH (11:50)
[2020-12-12] MEDS: ONDANSETRON ODT 4 MG PO PRN ×2 (12:05→18:22)
[2020-12-12] MEDS: LORazepam 0.5MG TABLET PO PRN (12:05)
[2020-12-12] MEDS ORDERED: MELA5TAB14 PO (13:39)
[2020-12-12] MEDS ORDERED: LEVE500T53 PO (13:39)
[2020-12-12] MEDS ORDERED: HYDR-3341 PO (13:39)
[2020-12-12] MEDS ORDERED: SEVE800T8 PO (13:39)
[2020-12-12] MEDS ORDERED: HYDR-3590 PO (13:39)
[2020-12-12] MEDS ORDERED: ACID1TAB7 PO (13:39)
[2020-12-12] MEDS ORDERED: FERR-36 PO (13:39)
[2020-12-12] MEDS ORDERED: CARV3.1212 PO (13:39)
[2020-12-12] MEDS ORDERED: ERGO500017 PO (13:39)
[2020-12-12] MEDS ORDERED: SODI10PO PO (13:39)
[2020-12-12] MEDS ORDERED: CARV6.2512 PO (13:39)
[2020-12-12] MEDS: SODIUM ZIRCONIUM CYCLOSILICATE 10 GM PO SCH (15:00)
[2020-12-12 16:15] VITALS: BP 137/87
[2020-12-12] MEDS: CARVEDILOL 6.25 MG TABLET PO SCH (16:59)
[2020-12-12 21:48] VITALS: BP 150/98
[2020-12-13] MEDS: HEPARIN 5,000 UNITS/ML, 1ML SQ SCH
[2020-12-13 01:05] VITALS: BP 147/86
[2020-12-13] MEDS: ACETAMINOPHEN 325 MG TABLET PO PRN ×2 (03:00→10:04)
[2020-12-13] MEDS: CARVEDILOL 3.125 MG TABLET PO SCH ×2 (05:49→18:07)
[2020-12-13] MEDS: LEVOTHYROXINE 100 MCG TABLET PO SCH (05:50)
[2020-12-13] MEDS ORDERED: HYDROCORTISONE 5 MG TABLET PO SCH ×2 (06:00→12:00)
[2020-12-13 07:02] VITALS: BP 154/89
[2020-12-13] MEDS: BUPROPION 100 MG TABLET PO SCH (08:29)
[2020-12-13] MEDS: FAMOTIDINE 20 MG TABLET PO SCH (08:29)
[2020-12-13] MEDS: LEVETIRACETAM 500 MG TABLET PO SCH (08:29)
[2020-12-13] MEDS: INSULIN LISPRO 100 UNITS/ML, PEN SQ-INSULIN SCH ×3 (08:29→16:00)
[2020-12-13] MEDS: LACTOBACILLUS CHEW TABLET PO SCH ×2 (08:30→15:57)
[2020-12-13] MEDS: SEVELAMER CARBONATE 800MG TAB PO SCH ×3 (08:31→15:57)
[2020-12-13] MEDS: SODIUM CHLORIDE FLUSH 10ML SYR IVF SCH (08:37)
[2020-12-13] MEDS: DOCUSATE 100 MG CAPSULE PO SCH (08:37)
[2020-12-13] MEDS: POLYETHYLENE GLYCOL 17 GM PACKET PO SCH (08:38)
[2020-12-13] MEDS ORDERED: HEPARIN 5,000 UNITS/ML, 1ML SQ SCH (09:00)
[2020-12-13 09:25] LABS: BASOPHILS % (AUTO) 2 % (0-1); EOSINOPHILS % (AUTO) 3 % (1-7); LYMPHOCYTES % (AUTO) 17 % (22-44); MEAN CORPUSCULAR HEMOGLOBIN 30.3 pg (27.0-34.8); MEAN CORPUSCULAR HGB CONC 31.6 g/dL (32.4-35.8); MEAN PLATELET VOLUME 10.1 fL (7.4-10.4); MONOCYTES % (AUTO) 11 % (2-9); NEUTROPHILS % (AUTO) 67 % (42-75); PLATELET COUNT 227 x10^3/uL (130-400); RED BLOOD COUNT 3.52 x10^6/uL (3.82-5.3); RED CELL DISTRIBUTION WIDTH 20.5 % (9.6-15.2)
[2020-12-13 09:39] LABS: ALBUMIN 2.8 g/dL (3.4-5.0); ANION GAP 17 mmol/L (5-15); CALCIUM 8.7 mg/dL (8.5-10.1); CHLORIDE 93 mmol/L (98-107)
[2020-12-13 09:43] LABS: ALANINE AMINOTRANSFERASE 34 U/L (12-78); ALKALINE PHOSPHATASE 246 U/L (45-117); BILIRUBIN,TOTAL 0.4 mg/dL (0.2-1.0); CREATININE 6.03 mg/dL (0.55-1.02); TOTAL PROTEIN 6.9 g/dL (6.4-8.2)
[2020-12-13 12:08] VITALS: BP 145/89
[2020-12-13] MEDS: SODIUM ZIRCONIUM CYCLOSILICATE 10 GM PO SCH (15:58)
[2020-12-13] MEDS: FERROUS SULFATE 325 MG TABLET PO SCH (18:06)
[2020-12-13] MEDS: LORazepam 0.5MG TABLET PO PRN (18:07)
[2020-12-14] MEDS ORDERED: HYDROCORTISONE 5 MG TABLET PO SCH (06:00)
== END 2020-12-13 18:38 | disposition home or self-care (01) | DRG 252 ==
LOC: ED 19:34 → EDIP 20:29 → 3N 21:44 → 4EST 09-23 10:18 → 4WST 09-24 10:25 → CCU 09-29 01:28 → 4NW 09-29 15:00 → 4EST 09-30 10:30 → 4WST 11-02 22:25
PROVIDERS: ADMIT Internal Medicine; ATTEND Internal Medicine
PROC: 5A1D70Z Performance of Urinary Filtration, Intermittent, Less than 6 Hours Per Day (ICD-10-PCS; 2020-09-02)
PROC: 5A1D70Z Performance of Urinary Filtration, Intermittent, Less than 6 Hours Per Day (ICD-10-PCS; 2020-09-02)
PROC: 5A1D70Z Performance of Urinary Filtration, Intermittent, Less than 6 Hours Per Day (ICD-10-PCS; 2020-09-05)
PROC: 5A1D70Z Performance of Urinary Filtration, Intermittent, Less than 6 Hours Per Day (ICD-10-PCS; 2020-09-05)
PROC: 5A1D70Z Performance of Urinary Filtration, Intermittent, Less than 6 Hours Per Day (ICD-10-PCS; 2020-09-07)
PROC: 5A1D70Z Performance of Urinary Filtration, Intermittent, Less than 6 Hours Per Day (ICD-10-PCS; 2020-09-09)
PROC: 5A1D70Z Performance of Urinary Filtration, Intermittent, Less than 6 Hours Per Day (ICD-10-PCS; 2020-09-12)
PROC: 5A1D70Z Performance of Urinary Filtration, Intermittent, Less than 6 Hours Per Day (ICD-10-PCS; 2020-09-14)
PROC: 5A1D70Z Performance of Urinary Filtration, Intermittent, Less than 6 Hours Per Day (ICD-10-PCS; 2020-09-16)
PROC: 5A1D70Z Performance of Urinary Filtration, Intermittent, Less than 6 Hours Per Day (ICD-10-PCS; 2020-09-19)
PROC: 5A1D70Z Performance of Urinary Filtration, Intermittent, Less than 6 Hours Per Day (ICD-10-PCS; 2020-09-21)
PROC: 5A1D70Z Performance of Urinary Filtration, Intermittent, Less than 6 Hours Per Day (ICD-10-PCS; 2020-09-23)
PROC: 5A1D70Z Performance of Urinary Filtration, Intermittent, Less than 6 Hours Per Day (ICD-10-PCS; 2020-09-26)
PROC: 5A1D70Z Performance of Urinary Filtration, Intermittent, Less than 6 Hours Per Day (ICD-10-PCS; 2020-09-28)
PROC: 5A1D70Z Performance of Urinary Filtration, Intermittent, Less than 6 Hours Per Day (ICD-10-PCS; 2020-09-30)
PROC: 5A1D70Z Performance of Urinary Filtration, Intermittent, Less than 6 Hours Per Day (ICD-10-PCS; 2020-10-03)
PROC: 5A1D70Z Performance of Urinary Filtration, Intermittent, Less than 6 Hours Per Day (ICD-10-PCS; 2020-10-05)
PROC: 03L Upper Arteries, Occlusion (ICD-10-PCS; principal; 2020-10-06 15:00)
PROC: 5A1D70Z Performance of Urinary Filtration, Intermittent, Less than 6 Hours Per Day (ICD-10-PCS; 2020-10-07)
PROC: 5A1D70Z Performance of Urinary Filtration, Intermittent, Less than 6 Hours Per Day (ICD-10-PCS; 2020-10-10)
PROC: 5A1D70Z Performance of Urinary Filtration, Intermittent, Less than 6 Hours Per Day (ICD-10-PCS; 2020-10-12)
PROC: 5A1D70Z Performance of Urinary Filtration, Intermittent, Less than 6 Hours Per Day (ICD-10-PCS; 2020-10-14)
PROC: 5A1D70Z Performance of Urinary Filtration, Intermittent, Less than 6 Hours Per Day (ICD-10-PCS; 2020-10-17)
PROC: 5A1D70Z Performance of Urinary Filtration, Intermittent, Less than 6 Hours Per Day (ICD-10-PCS; 2020-10-19)
PROC: 5A1D70Z Performance of Urinary Filtration, Intermittent, Less than 6 Hours Per Day (ICD-10-PCS; 2020-10-21)
PROC: 5A1D70Z Performance of Urinary Filtration, Intermittent, Less than 6 Hours Per Day (ICD-10-PCS; 2020-10-24)
PROC: 5A1D70Z Performance of Urinary Filtration, Intermittent, Less than 6 Hours Per Day (ICD-10-PCS; 2020-10-26)
PROC: 5A1D70Z Performance of Urinary Filtration, Intermittent, Less than 6 Hours Per Day (ICD-10-PCS; 2020-10-28)
PROC: 5A1D70Z Performance of Urinary Filtration, Intermittent, Less than 6 Hours Per Day (ICD-10-PCS; 2020-10-31)
PROC: B51W1ZZ Fluoroscopy of Dialysis Shunt/Fistula using Low Osmolar Contrast (ICD-10-PCS; 2020-11-01)
PROC: B51W1ZZ Fluoroscopy of Dialysis Shunt/Fistula using Low Osmolar Contrast (ICD-10-PCS; 2020-11-01)
PROC: 5A1D70Z Performance of Urinary Filtration, Intermittent, Less than 6 Hours Per Day (ICD-10-PCS; 2020-11-02)
PROC: 5A1D70Z Performance of Urinary Filtration, Intermittent, Less than 6 Hours Per Day (ICD-10-PCS; 2020-11-04)
PROC: 5A1D70Z Performance of Urinary Filtration, Intermittent, Less than 6 Hours Per Day (ICD-10-PCS; 2020-11-07)
PROC: 5A1D70Z Performance of Urinary Filtration, Intermittent, Less than 6 Hours Per Day (ICD-10-PCS; 2020-11-09)
PROC: 5A1D70Z Performance of Urinary Filtration, Intermittent, Less than 6 Hours Per Day (ICD-10-PCS; 2020-11-11)
PROC: 5A1D70Z Performance of Urinary Filtration, Intermittent, Less than 6 Hours Per Day (ICD-10-PCS; 2020-11-14)
PROC: 5A1D70Z Performance of Urinary Filtration, Intermittent, Less than 6 Hours Per Day (ICD-10-PCS; 2020-11-18)
PROC: 5A1D70Z Performance of Urinary Filtration, Intermittent, Less than 6 Hours Per Day (ICD-10-PCS; 2020-11-21)
PROC: 5A1D70Z Performance of Urinary Filtration, Intermittent, Less than 6 Hours Per Day (ICD-10-PCS; 2020-11-23)
PROC: 5A1D70Z Performance of Urinary Filtration, Intermittent, Less than 6 Hours Per Day (ICD-10-PCS; 2020-11-28)
PROC: 5A1D70Z Performance of Urinary Filtration, Intermittent, Less than 6 Hours Per Day (ICD-10-PCS; 2020-11-29)
PROC: 5A1D70Z Performance of Urinary Filtration, Intermittent, Less than 6 Hours Per Day (ICD-10-PCS; 2020-11-30)
PROC: 5A1D70Z Performance of Urinary Filtration, Intermittent, Less than 6 Hours Per Day (ICD-10-PCS; 2020-12-07)
PROC: 5A1D70Z Performance of Urinary Filtration, Intermittent, Less than 6 Hours Per Day (ICD-10-PCS; 2020-12-09)
PROC: 5A1D70Z Performance of Urinary Filtration, Intermittent, Less than 6 Hours Per Day (ICD-10-PCS; 2020-12-12)
DX: T82.858A Stenosis of other vascular prosthetic devices, implants and grafts, initial encounter (principal); N18.6 End stage renal disease; R53.2 Functional quadriplegia; G93.41 Metabolic encephalopathy; J81.0 Acute pulmonary edema; L03.213 Periorbital cellulitis; I12.0 Hypertensive chronic kidney disease with stage 5 chronic kidney disease or end stage renal disease; E27.40 Unspecified adrenocortical insufficiency; T86.12 Kidney transplant failure; E87.1 Hypo-osmolality and hyponatremia; J81.1 Chronic pulmonary edema; J90 Pleural effusion, not elsewhere classified; D50.9 Iron deficiency anemia, unspecified; D63.1 Anemia in chronic kidney disease; E03.9 Hypothyroidism, unspecified; E10.22 Type 1 diabetes mellitus with diabetic chronic kidney disease; E10.319 Type 1 diabetes mellitus with unspecified diabetic retinopathy without macular edema; E10.51 Type 1 diabetes mellitus with diabetic peripheral angiopathy without gangrene; E10.649 Type 1 diabetes mellitus with hypoglycemia without coma; E83.59 Other disorders of calcium metabolism; Z66 Do not resuscitate; Y83.2 Surgical operation with anastomosis, bypass or graft as the cause of abnormal reaction of the patient, or of later complication, without mention of misadventure at the time of the procedure; Y83.0 Surgical operation with transplant of whole organ as the cause of abnormal reaction of the patient, or of later complication, without mention of misadventure at the time of the procedure; T45.1X5A Adverse effect of antineoplastic and immunosuppressive drugs, initial encounter; R62.7 Adult failure to thrive; N29 Other disorders of kidney and ureter in diseases classified elsewhere; D49.7 Neoplasm of unspecified behavior of endocrine glands and other parts of nervous system; E87.5 Hyperkalemia; E88.09 Other disorders of plasma-protein metabolism, not elsewhere classified; F39 Unspecified mood [affective] disorder; F41.9 Anxiety disorder, unspecified; G40.909 Epilepsy, unspecified, not intractable, without status epilepticus; G47.00 Insomnia, unspecified; H44.532 Leucocoria, left eye; H54.7 Unspecified visual loss; K80.20 Calculus of gallbladder without cholecystitis without obstruction; K59.00 Constipation, unspecified; K76.0 Fatty (change of) liver, not elsewhere classified; L29.9 Pruritus, unspecified; Z99.2 Dependence on renal dialysis; Z79.52 Long term (current) use of systemic steroids; Z79.4 Long term (current) use of insulin; Z78.1 Physical restraint status; Z78.9 Other specified health status; Z20.822 Contact with and (suspected) exposure to COVID-19
CPT/HCPCS: 36415; 36573; 36581; 36589; 36901; 70450; 71045; 74018; 74181; 75984; 76700; 77001; 80048; 80053; 80069; 80074; 82010; 82306; 82533; 82728; 82800; 82803; 82947; 82962; 83036; 83540; 83550; 83690; 83735; 83970; 84100; 84439; 84443; 84481; 84484; 85014; 85018; 85025; 86140; 87081; 87635; 90935; 93005; 93970; 93990; 99156; 99157; 99285; C1894; G0378; J0171; J0690; J0881; J1100; J1644; J1756; J1815; J2250; J2310; J2405; J2550; J2704; J2720; J2997; J3010; J3480; J7507; Q0162; Q9966; C1750; C1751; C1768; C1769; J0360; J1610; J1642; J1720; J1817; J2060; J2270; J7030; J7040; J7050; Q0177; U0003